=== PATIENT | male | born 1965 | race Caucasian/White ===

== ENCOUNTER 2018-03-16 00:50 | Inpatient (IN) | payer OTHER ==
[~2018-03-16] VITALS: Ht 177.8 cm; Wt 66.2 kg
[~2018-03-16 00:50] MED LIST: ALPR1TAB3 PO; HYDR-3763 PO; LAMO25TA PO; OXYC-737 PO; PANT40TA PO; PRVHFAIN INH
[2018-03-16 02:15] VITALS: BP 127/89; PULSE 94; TEMP 36.9; O2SAT 94
[2018-03-16] MEDS ORDERED: MoRPHine SULFATE 2 MG/ML CARP IV STA (02:29)
[2018-03-16] MEDS ORDERED: DiphenhydrAMINE INJ 25 MG in SYRINGE 0 ML IV STA (02:30)
[2018-03-16] MEDS ORDERED: MoRPHine SULFATE 2 MG/ML CARP ONE (02:30)
[2018-03-16] MEDS ORDERED: DiphenhydrAMINE HCL 50 MG/ML VIAL ONE (02:31)
[2018-03-16] MEDS ORDERED: ONDANSETRON INJ 2 MG/ML 2 ML VIAL IV PRN (03:15)
[2018-03-16] MEDS ORDERED: MAGNESIUM HYDROXIDE SUSP 30 ML UDC PO PRN (03:15)
[2018-03-16] MEDS ORDERED: ALUMINUM/MAGNESIUM/SIMETH (MAALOX MAX) 30 ML UDC PO PRN (03:15)
[2018-03-16] MEDS ORDERED: PATIENT'S HEIGHT AND/OR WEIGHT NEEDED SCH (03:30)
[2018-03-16] MEDS: LACTATED RINGER'S 1000ML 1,000 ML IV SCH ×4 (03:35→20:38)
[2018-03-16 03:41] VITALS: BMI 20.9
[2018-03-16] MEDS ORDERED: LORAZEPAM INJ 0.5 MG in SYRINGE 0.25 ML IV SCH (03:45)
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
[2018-03-16] MEDS ORDERED: GLUCAGON FOR INJ 1 MG VIAL IM PRN (04:00)
[2018-03-16] MEDS ORDERED: GLUCOSE 40% GEL 15 GM TUBE PO PRN (04:00)
[2018-03-16] MEDS ORDERED: GLUCOSE 10 TABS/TUBE PO PRN (04:00)
[2018-03-16] MEDS ORDERED: DEXTROSE 50% 50 ML SYR IV PRN (04:00)
[2018-03-16] MEDS: MoRPHine SULFATE 2 MG/ML CARP IV PRN ×3 (06:05→22:37)
[2018-03-16 06:45] LABS: BASO % 0.4 %; BASO ABS # 0.04 K/uL (0-0.2); EOS % 1.4 %; EOS ABS # 0.13 K/uL (0-0.5); HEMATOCRIT 37.7 % (42-52); HEMOGLOBIN 12.6 g/dL (14.0-18.0); IG# 0.01 K/uL (0.00-0.02); LYMPH % 16.5 %; LYMPH ABS # 1.58 K/uL (1.2-3.4); MEAN CELL VOLUME 95.7 fL (80-100); MEAN CORPUSCULAR HGB CONC 33.4 g/dl (32-36); MONO % 7.4 %; MONO ABS # 0.71 K/uL (0.11-0.59); NEUT % 74.2 %; NEUT ABS # 7.13 K/uL (1.4-6.5); PLATELET COUNT 157 K/uL (130-400); RED CELL DISTRIBUTION WIDTH CV 13.1 % (11.5-14.5); RED CELL DISTRIBUTION WIDTH SD 45.8 fL (36.4-46.3)
[2018-03-16 07:19] LABS: CALCIUM 8.8 mg/dl (8.5-10.1); CREATININE 0.52 mg/dl (0.60-1.40); POTASSIUM 4.2 mmol/L (3.5-5.1); TOTAL PROTEIN 6.9 gm/dl (6.4-8.2)
[2018-03-16 07:26] VITALS: BP 117/74; PULSE 73; TEMP 37.2; O2SAT 92
[2018-03-16] MEDS: INSULIN ASPART 100 UNITS/ML 3 ML PEN SC SCH ×4 (07:39→20:39)
[2018-03-16] MEDS: ENOXAPARIN 40 MG/0.4 ML SYR SQ SCH (09:00)
[2018-03-16] MEDS: ALPRAZOLAM 0.5 MG TAB PO SCH ×3 (09:19→20:48)
--- NOTE | 2018-03-16 09:36 | DIAGNOSTIC IMAGING REPORT ---
MRCP CLINICAL HISTORY: 52 years-old Male presenting with Pancreatic mass. TECHNIQUE: Multisequence, multiplanar MR imaging of the abdomen was performed without the use of intravenous contrast. An MRCP protocol was used. 3-D volumetric and/or maximum intensity projection (MIP) images were subsequently reconstructed for review. IV contrast: None. COMPARISON: CT from 05/01/2016 and MRI from 11/22/2012. FINDINGS: Localizer images: Unremarkable. Lung bases: Lungs and pleural spaces clear. Normal heart size. No pericardial or pleural effusion. Liver: Normal morphology. Well-defined T2 hyperintense lesion in the right hepatic lobe likely hepatic cyst or hamartoma. Patent hepatic vasculature. Biliary: Mild biliary ductal prominence likely a reservoir effect in the post cholecystectomy state. The cystic duct remnant is nondilated. Gallbladder surgically absent. Pancreas: Significant interval decrease caliber of the pancreatic duct in comparison to 2013. Nonetheless, the pancreatic duct is mildly prominent throughout. Focal lobular cystic region in the uncinate measuring 1.2 cm, which appears contiguous with the pancreatic duct. This was previously region of dilated side branch ducts. The pancreatic head demonstrates multiple foci of T2 hyperintensity (series 8 image 86). This region of the pancreatic head appears bulbous, especially at the level of the major papilla (series 6 image 11). This appearance is similar to what was noted on prior CT in 2016. Spleen: Normal. Adrenal glands: Normal. Kidneys and ureters: Small cyst noted in the right kidney. No hydronephrosis. Bowel: Wall thickening of the pylorus and duodenal bulb. No bowel obstruction. Peritoneal cavity: No free fluid. Lymph nodes: No enlarged lymph nodes in the abdomen. Vasculature: Aorta and IVC patent and normal in caliber. Abdominal wall: Normal. Musculoskeletal: Stable superior endplate compression deformity of L2. IMPRESSION: 1. Pancreatic ductal prominence overall decreased since 2013. 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 This appearance has not significantly changed over an extended period of time, however, the current study is noncontrast and suboptimal for the evaluation of the pancreas. Dedicated contrast-enhanced pancreas MRI with MRCP sequences recommended on subsequent yearly surveillance examinations. 2. Wall thickening of the pylorus and duodenal bulb. This is nonspecific. Correlate with lipase to exclude the presence of pancreatitis as a potential cause of this. Differential considerations include duodenitis or ulcer. 3. Postsurgical changes of cholecystectomy. Electronically signed by: Lazaro Simmons M.D. 03/16/2018 9:35 AM Dictated Date/Time: 03/16/2018 9:20 AM
[2018-03-16] MEDS ORDERED: KETOROLAC TROMETHAMINE 30 MG/ML VIAL IV STA (09:42)
[2018-03-16] MEDS ORDERED: PANTOprazole INJ 40 MG in SYRINGE 0 ML IV SCH (11:00)
--- NOTE | 2018-03-16 11:43 | Progress Note ---
Internal Med Progress Note Date of Service: Mar 16, 2018. Provider Documentation: SUBJECTIVE: The patient was seen and examined in medical floor He is a 52 year old male with a PMH of chronic pancreatitis, anxiety, hep C, epilepsy, gerd, HLD and DM that was transferred from [facility] due to abdominal pain Admitted with acute on chronic pancreatitis with a history of pancreatic head mass Did not have any EUS as an outpatient unit Complains of more pain during the examination but no nausea, vomiting or abdominal distention OBJECTIVE: Vital Signs-as noted below Exam: General-in pain Eyes-normal ENT-normal Neck-supple Lungs-clear to auscultate bilaterally Heart-regular Abdomen-soft, tender epigastrium, bowel sounds present Extremities-no edema Neuro-alert, awake and oriented 3 No focal neuro deficit Lab data as noted below. ASSESSMENT & PLAN: Patient is a 52 year old male with a PMH of chronic pancreatitis, anxiety, hep C , epilepsy, gerd, HLD and DM that was transferred from [facility] due to abdominal pain. Had a CT scan done and was found to have a pancreatic mass. Recurrent acute pancreatitis w/ pancreatic mass - Doubt acute pancreatitis with normal amylase/lipase and normal vital signs -Pain is out of proportion to clinical findings -We will give her Toradol with small dose of Dilaudid if needed - order MCRP to evaluate pancreatic mass; cystic pancreatic lesions, no significant ductal dilatation - LR at 200mls/hr, zofran 4mf IV q6 and morphine 1mg IV q4 -Was on n.p.o. will start clears orally - GI consult to evaluate mass for possible EUS as an outpatient -Clinically a little better, continue current medications and management plan T2DM - hold metformin - order ISS HLD - hold statin GERD - hold Protonix Epilepsy - hold Lamictal, - hold [id number] -Start Lamictal Anxiety - patient notes he takes Xanax prn for anxiety Chronic pain - patient notes he takes oxycodone prn -We will continue as an outpatient Hx of Hep C DVT - lovenox 40mg subq Dispo - lives in [facility] with his bestfriend, has a 5 year old daughter Full code Vital Signs: Date Time Temp Pulse Resp B/P (MAP) Pulse Ox O2 Delivery O2 Flow Rate FiO2 03/16/18 07:26 37.2 73 16 117/74 (88) 92 03/16/18 03:41 Room Air 03/16/18 02:15 36.9 94 18 127/89 (102) 94 Room Air Lab Results: Results Past 24 Hours Test 03/16/18 06:18 03/16/18 07:22 03/16/18 11:18 Range/Units White Blood Count 9.60 4.8-10.8 K/uL Red Blood Count 3.94 4.7-6.1 M/uL Hemoglobin 12.6 14.0-18.0 g/dL Hematocrit 37.7 42-52 % Mean Corpuscular Volume 95.7 80-100 fL Mean Corpuscular Hemoglobin 32.0 25-34 pg Mean Corpuscular Hemoglobin Concent 33.4 32-36 g/dl Platelet Count 157 130-400 K/uL Mean Platelet Volume 12.0 7.4-10.4 fL Neutrophils (%) (Auto) 74.2 % Lymphocytes (%) (Auto) 16.5 % Monocytes (%) (Auto) 7.4 % Eosinophils (%) (Auto) 1.4 % Basophils (%) (Auto) 0.4 % Neutrophils # (Auto) 7.13 1.4-6.5 K/uL Lymphocytes # (Auto) 1.58 1.2-3.4 K/uL Monocytes # (Auto) 0.71 0.11-0.59 K/uL Eosinophils # (Auto) 0.13 0-0.5 K/uL Basophils # (Auto) 0.04 0-0.2 K/uL RDW Standard Deviation 45.8 36.4-46.3 fL RDW Coefficient of Variation 13.1 11.5-14.5 % Immature Granulocyte % (Auto) 0.1 % Immature Granulocyte # (Auto) 0.01 0.00-0.02 K/uL Prothrombin Time 10.6 9.0-12.0 SECONDS Prothromb Time International Ratio 1.0 0.9-1.1 Sodium Level 137 136-145 mmol/L Potassium Level 4.2 3.5-5.1 mmol/L Chloride Level 101 98-107 mmol/L Carbon Dioxide Level 29 21-32 mmol/L Anion Gap 7.0 3-11 mmol/L Blood Urea Nitrogen 10 7-18 mg/dl Creatinine 0.52 0.60-1.40 mg/dl Est Creatinine Clear Calc Drug Dose 152.1 ml/min Estimated GFR () 140.1 Estimated GFR (Non- 120.9 BUN/Creatinine Ratio 18.2 10-20 Random Glucose 122 70-99 mg/dl Calcium Level 8.8 8.5-10.1 mg/dl Total Bilirubin 0.4 0.2-1 mg/dl Aspartate Amino Transf (AST/SGOT) 39 15-37 U/L Alanine Aminotransferase (ALT/SGPT) 77 12-78 U/L Alkaline Phosphatase 267 45-117 U/L Total Protein 6.9 6.4-8.2 gm/dl Albumin 3.0 3.4-5.0 gm/dl Globulin 3.9 2.5-4.0 gm/dl Albumin/Globulin Ratio 0.8 0.9-2 Lipase 71 73-393 U/L Bedside Glucose 140 116 70-99 mg/dl
[2018-03-16] MEDS: HYDROCODONE/ACETAMI 10/325 TAB PO PRN (11:46)
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
[2018-03-16 15:29] VITALS: BP 106/66; PULSE 56; TEMP 36.5; O2SAT 96
[2018-03-16] MEDS ORDERED: LORAZEPAM INJ 0.5 MG in SYRINGE 0.25 ML IV STA (17:29)
[2018-03-16 20:01] VITALS: BP 119/73; TEMP 36.8; O2SAT 93
[2018-03-16] MEDS ORDERED: GADAVIST IV PRN (20:30)
[2018-03-16] MEDS: KETOROLAC TROMETHAMINE 30 MG/ML VIAL IV PRN (20:37)
[2018-03-16] MEDS: PANTOprazole INJ 40 MG in SYRINGE 0 ML IV SCH (20:38)
--- NOTE | 2018-03-16 21:01 | DIAGNOSTIC IMAGING REPORT ---
MRI OF THE ABDOMEN COMBO CLINICAL HISTORY: Pancreatitis. Nausea and vomiting. COMPARISON STUDY: Abdominal CT dated 05/01/2016. Abdominal MRI dated 11/22/2012. MRCP dated 03/16/2018. TECHNIQUE: MRI of the abdomen is performed transverse T1 and T2-weighted sequences in the axial and coronal planes. Contrast enhanced sequences were acquired following the IV administration of 6.5 cc of Gadavist. Subtraction imaging was performed. MRCP images were acquired. 3-D reformats were created and assessed. The examination is significantly compromised by motion artifact. FINDINGS: Lower chest: There are small pleural effusions. The heart is normal in size and without pericardial effusion. Liver: The liver is normal in size, contour, and signal intensity. There is mild intrahepatic biliary ductal dilatation. The hepatic veins and portal veins are patent. A subcentimeter cyst is noted in the right lobe. A 1.4 cm enhancing lesion the left lobe likely represents a hemangioma and has been present dating back to 2012. Gallbladder and MRCP: The gallbladder is surgically absent. The common bile duct is somewhat patulous and measures up to 7 mm. No findings flexor clearly identified to indicate choledocholithiasis. Spleen: Normal in size and signal intensity. Pancreas: The pancreas is not well assessed. The pancreas appears mildly enlarged and is heterogeneous in signal intensity. The pancreatic head appears bulbous an ill-defined. Large calcifications are noted in the pancreatic head, and there is mild stranding around the pancreatic head and the adjacent duodenum. Mild wall thickening is noted in the duodenum. The pancreatic duct is dilated, measuring up to 6 mm. Cystic foci are present in the pancreatic head measure up to 16mm, and this was also seen on prior examinations. Adrenal glands: Unremarkable. Kidneys: The kidneys are normal in size and without hydronephrosis. The kidneys enhance and excrete symmetrically. There is a 1.8 cm T1 and T2 hyperintense lesions seen in the lower pole of left kidney. This does not demonstrate postcontrast enhancement and likely represents a complex/hemorrhagic cyst. This is been seen on prior examinations. There is trace nonspecific perinephric fluid. Abdominal aorta: Normal in course and caliber. Bowel: Moderate fecal retention is noted in the colon. There is no evidence of bowel obstruction. Peritoneum: There is no abdominal ascites. Lymphadenopathy: None. Skeletal structures: Visualized skeletal structures times are normal marrow signal intensity. IMPRESSION: 1. Significantly motion compromised examination. 2. There is mild inflammatory stranding around the pancreatic head, with associated wall thickening in the adjacent duodenum. Top differential considerations are pancreatitis versus duodenitis. Clinical correlation will be required. 3. There is unchanged abnormal appearance involving the pancreatic head, which is ill-defined and demonstrates foci of cystic change and large calcifications. This is indeterminant and may represent sidebranch IPMN's in conjunction with the sequelae of chronic pancreatitis. Underlying mass lesion involving the pancreas and/or duodenum would be impossible to exclude. These findings have been present on prior examinations dating back to 2012. Gastroenterology consultation and follow-up with ERCP is recommended for further assessment. 4. The gallbladder is surgically absent. Mild intra and extrahepatic biliary ductal dilatation is noted. There is no evidence of choledocholithiasis. There is also chronic dilatation of the pancreatic duct. 5. Small pleural effusions. 6. Additional findings as above. Electronically signed by: Navid Da Silva M.D. 03/16/2018 8:59 PM Dictated Date/Time: 03/16/2018 8:40 PM
[2018-03-16 22:55] VITALS: BP 107/67; PULSE 69; TEMP 36.7; O2SAT 93
[2018-03-17] MEDS: HYDROCODONE/ACETAMI 10/325 TAB PO PRN ×2 (00:29→06:21)
[2018-03-17] MEDS: LACTATED RINGER'S 1000ML 1,000 ML IV SCH ×4 (03:02→22:48)
[2018-03-17] MEDS: MoRPHine SULFATE 2 MG/ML CARP IV PRN ×4 (03:03→20:21)
[2018-03-17] MEDS: KETOROLAC TROMETHAMINE 30 MG/ML VIAL IV PRN (06:42)
[2018-03-17 07:14] VITALS: BP 118/72; PULSE 60; TEMP 36.7; O2SAT 91
[2018-03-17] MEDS ORDERED: NURSING VERBAL MED ORDER ONE ×2 (07:30→09:45)
[2018-03-17] MEDS: PANTOprazole INJ 40 MG in SYRINGE 0 ML IV SCH ×2 (07:52→20:59)
[2018-03-17] MEDS: ENOXAPARIN 40 MG/0.4 ML SYR SQ SCH (07:57)
[2018-03-17] MEDS: ALPRAZOLAM 0.5 MG TAB PO SCH ×3 (07:57→21:10)
[2018-03-17 09:59] LABS: HEMATOCRIT 32.7 % (42-52); HEMOGLOBIN 10.8 g/dL (14.0-18.0); MEAN CELL VOLUME 95.1 fL (80-100); MEAN CORPUSCULAR HEMOGLOBIN 31.4 pg (25-34); MEAN PLATELET VOLUME 11.8 fL (7.4-10.4); PLATELET COUNT 157 K/uL (130-400); RED CELL DISTRIBUTION WIDTH CV 13.1 % (11.5-14.5); RED CELL DISTRIBUTION WIDTH SD 45.2 fL (36.4-46.3); WHITE BLOOD COUNT 6.86 K/uL (4.8-10.8)
--- NOTE | 2018-03-17 10:26 | Clinical Documentation Query ---
[facility]. [facility] : CLINICAL DOCUMENTATION QUERY Patient is a 52 year old male that was transferred from [facility] due to abdominal pain. H&P documentation includes "24 pound unintentional weight loss over the past 2 months" in the setting of recurrent acute on chronic pancreatitis. Patient reports recent vomiting, a decreased appetite, and nausea. BMI 20.9 kg/m*m. As appropriate, consider documentation as suggested below as this impacts accurate DRG assignment. Thank you. In your clinical opinion is this patient being managed for: ( x ) Mild protein-calorie malnutrition ( ) Not Agree ( ) Other explanation of clinical findings (No explanation is considered a No Response) ( ) Unable to determine ( ) Need to Discuss (Phone CDS or qliq) (No discussion is considered a No Response) The medical record reflects the following clinical findings, treatment, and risk factors. Clinical Indicators: As above Treatment: As above Risk Factors: Pancreatitis, drug use/abuse Please clarify and document your clinical opinion in the progress notes and discharge summary. Terms such as "probable", "suspected", "likely", "questionable", "possible", or "still to be ruled out" are acceptable. IF IN AGREEMENT, YOU MUST DOCUMENT ABOVE DIAGNOSTIC STATEMENT IN DAILY PROGRESS NOTES AND DISCHARGE SUMMARY. This document is not part of the patient's record. Thank You, Marty Littlejohn, JOCELYN [phone]
[2018-03-17 10:36] LABS: ALBUMIN 2.3 gm/dl (3.4-5.0); ALT/SGPT 103 U/L (12-78); AST/SGOT 114 U/L (15-37); BLOOD UREA NITROGEN 9 mg/dl (7-18); CALCIUM 8.1 mg/dl (8.5-10.1); CARBON DIOXIDE 25 mmol/L (21-32); CREATININE 0.41 mg/dl (0.60-1.40); GLUCOSE 82 mg/dl (70-99); LIPASE 58 U/L (73-393); POTASSIUM 3.5 mmol/L (3.5-5.1); SODIUM 141 mmol/L (136-145)
[2018-03-17 10:38] LABS: ALKALINE PHOSPHATASE 344 U/L (45-117); TOTAL PROTEIN 5.5 gm/dl (6.4-8.2)
--- NOTE | 2018-03-17 10:38 | Progress Note ---
Internal Med Progress Note Date of Service: Mar 17, 2018. Provider Documentation: SUBJECTIVE: The patient was seen and examined in medical floor He is a 52 year old male with a PMH of chronic pancreatitis, anxiety, hep C, epilepsy, gerd, HLD and DM that was transferred from [facility] due to abdominal pain Admitted with acute on chronic pancreatitis with a history of pancreatic head mass Did not have any EUS as an outpatient unit Complains of more pain during the examination but no nausea, vomiting or abdominal distention 03/17: Remains on n.p.o. Still has moderate to severe epigastric pain without any nausea or vomiting MRI of the abdomen confirmed cystic changes in the head of the pancreas consistent with chronic pancreatitis Likely to need chronic pain medications OBJECTIVE: Vital Signs-as noted below Exam: General-in pain and very anxious Eyes-normal ENT-normal Neck-supple Lungs-clear to auscultate bilaterally Heart-regular Abdomen-soft, tender epigastrium, no masses, bowel sounds present Extremities-no edema Neuro-alert, awake and oriented 3 No focal neuro deficit Lab data as noted below. ASSESSMENT & PLAN: Patient is a 52 year old male with a PMH of chronic pancreatitis, anxiety, hep C , epilepsy, gerd, HLD and DM that was transferred from [facility] due to abdominal pain. Had a CT scan done and was found to have a pancreatic mass. Recurrent acute pancreatitis w/ pancreatic mass - Doubt acute pancreatitis with normal amylase/lipase and normal vital signs -Pain is out of proportion to clinical findings -We will give her Toradol with small dose of Dilaudid if needed - order MRCP to evaluate pancreatic mass; cystic pancreatic lesions, no significant ductal dilatation - LR at 200mls/hr, zofran 4mf IV q6 and morphine 1mg IV q4 -Was on n.p.o. will start clears orally - GI consult to evaluate mass for possible EUS as an outpatient -Clinically a little better, continue current medications and management plan -MRI of the Abdomen:1. Significantly motion compromised examination. 2. There is mild inflammatory stranding around the pancreatic head, with associated wall thickening in the adjacent duodenum. Top differential considerations are pancreatitis versus duodenitis. Clinical correlation will be required. 3. There is unchanged abnormal appearance involving the pancreatic head, which is ill-defined and demonstrates foci of cystic change and large calcifications. This is indeterminant and may represent sidebranch IPMN's in conjunction with the sequelae of chronic pancreatitis. Underlying mass lesion involving the pancreas and/or duodenum would be impossible to exclude. These findings have been present on prior examinations dating back to 2012. Gastroenterology consultation and follow-up with ERCP is recommended for further assessment. 4. The gallbladder is surgically absent. Mild intra and extrahepatic biliary ductal dilatation is noted. There is no evidence of choledocholithiasis. There is also chronic dilatation of the pancreatic duct. 5. Small pleural effusions. Start Clears orally Will need oral pain med on discharge Mild Protein Calorie Malnutrition Nutrition assessment T2DM - hold metformin - order ISS HLD - hold statin GERD - hold Protonix Epilepsy - hold Lamictal, - hold [id number] -Start Lamictal Anxiety - patient notes he takes Xanax prn for anxiety Chronic pain - patient notes he takes oxycodone prn -We will continue as an outpatient Hx of Hep C DVT - lovenox 40mg subq Dispo - lives in [facility] with his best friend, has a 5 year old daughter Full code Vital Signs: Date Time Temp Pulse Resp B/P (MAP) Pulse Ox O2 Delivery O2 Flow Rate FiO2 03/17/18 07:14 36.7 60 20 118/72 (87) 91 Room Air 03/17/18 00:00 Room Air 03/16/18 22:55 36.7 69 18 107/67 (80) 93 Room Air 03/16/18 20:01 36.8 19 119/73 (88) 93 Room Air 03/16/18 16:00 Room Air 03/16/18 15:29 36.5 56 18 106/66 (79) 96 Room Air Lab Results: Results Past 24 Hours Test 03/16/18 11:18 03/16/18 16:34 03/16/18 20:35 03/17/18 07:22 Range/Units Bedside Glucose 116 88 91 92 70-99 mg/dl Test 03/17/18 09:36 03/17/18 10:15 Range/Units White Blood Count 6.86 4.8-10.8 K/uL Red Blood Count 3.44 4.7-6.1 M/uL Hemoglobin 10.8 14.0-18.0 g/dL Hematocrit 32.7 42-52 % Mean Corpuscular Volume 95.1 80-100 fL Mean Corpuscular Hemoglobin 31.4 25-34 pg Mean Corpuscular Hemoglobin Concent 33.0 32-36 g/dl RDW Standard Deviation 45.2 36.4-46.3 fL RDW Coefficient of Variation 13.1 11.5-14.5 % Platelet Count 157 130-400 K/uL Mean Platelet Volume 11.8 7.4-10.4 fL Sodium Level 141 136-145 mmol/L Potassium Level 3.5 3.5-5.1 mmol/L Chloride Level 106 98-107 mmol/L Carbon Dioxide Level 25 21-32 mmol/L Anion Gap 10.0 3-11 mmol/L Blood Urea Nitrogen 9 7-18 mg/dl Creatinine 0.41 0.60-1.40 mg/dl Est Creatinine Clear Calc Drug Dose 192.9 ml/min Estimated GFR () > 150.0 Estimated GFR (Non- 133.3 BUN/Creatinine Ratio 22.3 10-20 Random Glucose 82 70-99 mg/dl Calcium Level 8.1 8.5-10.1 mg/dl Total Bilirubin 0.5 0.2-1 mg/dl Direct Bilirubin 0.2 0-0.2 mg/dl Aspartate Amino Transf (AST/SGOT) 114 15-37 U/L Alanine Aminotransferase (ALT/SGPT) 103 12-78 U/L Alkaline Phosphatase 344 45-117 U/L Total Protein 5.5 6.4-8.2 gm/dl Albumin 2.3 3.4-5.0 gm/dl Lipase 58 73-393 U/L Bedside Glucose 89 70-99 mg/dl
--- NOTE | 2018-03-17 10:55 | Gastroenterology Progress Note ---
Progress Note Date of Service: Mar 17, 2018 Subjective Pt evaluation today including: conversation w/ patient, physical exam, chart review, lab review, review of studies, review of inpatient medication list Pt still c/o abd pain, nausea but no vomiting. Is passing flatus, no BMs. MRI abd w contrast done yesterday: + pancreas head inflammatory changes w wall thickening adjacent to duodenum. Abnormal appearance on pancreas head w cystic changes and large calcifications, indeterminate but may be sidebranch IPMN, underlaying mass not excluded, there's also chronic pancreas duct dilation. Review of Systems Constitutional: No fever, No chills Respiratory: No cough, No shortness of breath Cardiac: No chest pain Abdomen: + pain, + nausea, No vomiting Medications Current Inpatient Medications Medications (Trade) Dose Ordered Sig/Omar Route Start Time Stop Time Status Last Admin Dose Admin Enoxaparin Sodium (Lovenox Inj) 40 mg Q24H SQ 03/16/18 09:00 04/15/18 08:59 Al Hydrox/Mg Hydrox/Simethicone (Maalox Max Susp) 15 ml Q4H PRN PO 03/16/18 03:15 04/15/18 03:14 Magnesium Hydroxide (Milk Of Magnesia Susp) 30 ml Q6H PRN PO 03/16/18 03:15 04/15/18 03:14 Polyethylene (Miralax Powder Packet) 17 gm DAILY PRN PO 03/16/18 03:15 04/15/18 03:14 Ondansetron HCl (Zofran Inj) 4 mg Q6H PRN IV 03/16/18 03:15 04/15/18 03:14 Lactated Ringer's 1,000 ml @ 150 mls/hr Q6H40M IV 03/16/18 03:15 04/15/18 03:14 03/17/18 10:11 150 MLS/HR Morphine Sulfate (MoRPHine SULFATE INJ) 1 mg Q4 PRN IV 03/16/18 03:15 03/30/18 03:14 03/17/18 07:49 1 MG Glucose (Glucose 40% Gel) 15-30 GRAMS 15 GRAMS... UD PRN PO 03/16/18 04:00 04/15/18 03:59 Glucose (Glucose Chew Tab) 4-8 Tablets 4 Tabl... UD PRN PO 03/16/18 04:00 04/15/18 03:59 Dextrose (Dextrose 50% 50ML Syringe) 25-50ML 25ML FOR ... UD PRN IV 03/16/18 04:00 04/15/18 03:59 Glucagon (Glucagon Inj) 1 mg UD PRN IM 03/16/18 04:00 04/15/18 03:59 Carbohydrates (Carbohydrates For Hypoglycemia) 15-30 GRAMS 15 grams if BSG 54-69... UD PRN PO 03/16/18 04:00 04/15/18 03:59 Alprazolam (Xanax Tab) 1 mg TID PO 03/16/18 09:00 04/15/18 08:59 03/17/18 07:57 1 MG Lamotrigine (Lamictal Tab) 50 mg BID PO 03/16/18 09:00 04/15/18 08:59 03/17/18 07:57 50 MG Ketorolac Tromethamine (Toradol Inj) 30 mg Q6H PRN IV 03/16/18 09:30 03/21/18 09:29 03/17/18 06:42 30 MG Pantoprazole Sodium 40 mg/ Syringe 10 ml @ 5 mls/min BID IV 03/16/18 21:00 04/15/18 10:59 03/17/18 07:52 5 MLS/MIN Gadobutrol (Gadavist) 6.5 mmol UD PRN IV 03/16/18 20:30 03/20/18 20:29 Insulin Aspart (novoLOG ASPART) SLIDING SCALE G... ACHS SC 03/17/18 11:00 04/16/18 10:59 Hydromorphone HCl (Dilaudid Tab) 2 mg Q6H PRN PO 03/17/18 10:30 03/31/18 10:29 Objective Vital Signs Date Time Temp Pulse Resp B/P (MAP) Pulse Ox O2 Delivery O2 Flow Rate FiO2 03/17/18 07:14 36.7 60 20 118/72 (87) 91 Room Air 03/17/18 00:00 Room Air 03/16/18 22:55 36.7 69 18 107/67 (80) 93 Room Air 03/16/18 20:01 36.8 19 119/73 (88) 93 Room Air 03/16/18 16:00 Room Air 03/16/18 15:29 36.5 56 18 106/66 (79) 96 Room Air Physical Exam General Appearance: + mild distress (c/o abd pain) Eyes: normal inspection, PERRL, EOMI Neck: supple, no JVD, trachea midline Respiratory/Chest: normal breath sounds, no respiratory distress, no accessory muscle use Cardiovascular: regular rate, rhythm, no gallop, no murmur Abdomen: normal bowel sounds, soft, + tenderness (diffuse) Extremities: normal inspection, no pedal edema, no calf tenderness Neurologic/Psych: alert, normal mood/affect, oriented x 3 Skin: normal color, no jaundice, no rash Laboratory Results Last 24 Hours Test 03/16/18 11:18 03/16/18 16:34 03/16/18 20:35 03/17/18 07:22 Bedside Glucose 116 mg/dl 88 mg/dl 91 mg/dl 92 mg/dl Test 03/17/18 09:36 03/17/18 10:15 White Blood Count 6.86 K/uL Red Blood Count 3.44 M/uL Hemoglobin 10.8 g/dL Hematocrit 32.7 % Mean Corpuscular Volume 95.1 fL Mean Corpuscular Hemoglobin 31.4 pg Mean Corpuscular Hemoglobin Concent 33.0 g/dl RDW Standard Deviation 45.2 fL RDW Coefficient of Variation 13.1 % Platelet Count 157 K/uL Mean Platelet Volume 11.8 fL Sodium Level 141 mmol/L Potassium Level 3.5 mmol/L Chloride Level 106 mmol/L Carbon Dioxide Level 25 mmol/L Anion Gap 10.0 mmol/L Blood Urea Nitrogen 9 mg/dl Creatinine 0.41 mg/dl Est Creatinine Clear Calc Drug Dose 192.9 ml/min Estimated GFR () > 150.0 Estimated GFR (Non- 133.3 BUN/Creatinine Ratio 22.3 Random Glucose 82 mg/dl Calcium Level 8.1 mg/dl Total Bilirubin 0.5 mg/dl Direct Bilirubin 0.2 mg/dl Aspartate Amino Transf (AST/SGOT) 114 U/L Alanine Aminotransferase (ALT/SGPT) 103 U/L Alkaline Phosphatase 344 U/L Total Protein 5.5 gm/dl Albumin 2.3 gm/dl Lipase 58 U/L Bedside Glucose 89 mg/dl Assessment and Plan Patient is a 52 year old male transferred from [facility] for abd pain, n/ v. He has hx of pancreas mass w chronic pancreatitis. Tobacco and marijuana user , denies any ETOH since 5 yrs ago. He is s/p cholecystectomy. Previous EUS done in 2016 w FNA showed benign tissue. Attempt repeat EUS in 2017 w limited exam and incomplete study due to food in stomach. He had been seen by GI Surgery ( Dr. Walker) to eval for possible resection of mass but never followed up. MRI abd w/o abscess or necrosis. Similar findings as previously seen in 2013 w pancreas head inflammatory and cystic changes, ? underlaying mass not excluded. He also appears to have developing wall thickening adjacent to duodenum area, wonder if he has Groove pancreatitis. Plan - Obtain records (labs, imaging studies) from [facility] -> scanned - CL diet - LR @ 150ml/hr - Protonix 40mg IV BID. - Symptomatic management otherwise - Eventually would need f/u with GI Surgery (Dr. Walker) which we will help arrange and if they request repeat EUS w FNA then we can provide this service. Attending attestation I have seen, examined this patient, and agree with the findings and above by our mid-level provider KELLY Soliz. -MRI reviewed-stable Chronic starkey changes -F/U with Surgical oncology with Dr. Quincy Walker to discuss elective resection to both ensure no other pathologic changes are had as well as for potential pain. -Continue symptomatic care, with IVF, pain control. D/C to home when tolerating diet and pain controlled. -Will sign off, call with questions.
[2018-03-17] MEDS ORDERED: INSULIN ASPART 100 UNITS/ML 3 ML PEN SC SCH (12:00)
[2018-03-17] MEDS: INSULIN ASPART 100 UNITS/ML 3 ML PEN SC SCH ×3 (12:26→21:00)
[2018-03-17] MEDS: HYDROmorphone HCL 2 MG TAB PO PRN ×2 (12:43→19:13)
[2018-03-17 15:25] VITALS: BP 105/65; PULSE 78; TEMP 36.9; O2SAT 95
[2018-03-17 19:00] VITALS: O2SAT 95
[2018-03-17 20:19] VITALS: BP 107/73; PULSE 87; O2SAT 96
[2018-03-17 23:22] VITALS: BP 110/65; PULSE 66; TEMP 37.1; O2SAT 96
[2018-03-18] MEDS: MoRPHine SULFATE 2 MG/ML CARP IV PRN ×2 (00:55→05:07)
[2018-03-18] MEDS: HYDROmorphone HCL 2 MG TAB PO PRN ×2 (02:10→08:09)
[2018-03-18 04:30] VITALS: BP 138/79; PULSE 77; TEMP 37.2; O2SAT 93
[2018-03-18] MEDS: LACTATED RINGER'S 1000ML 1,000 ML IV SCH ×3 (05:09→18:49)
[2018-03-18 07:18] VITALS: BP 115/67; PULSE 69; TEMP 37; O2SAT 92
[2018-03-18] MEDS: ALPRAZOLAM 0.5 MG TAB PO SCH ×3 (08:08→20:37)
[2018-03-18] MEDS: PANTOprazole INJ 40 MG in SYRINGE 0 ML IV SCH ×2 (08:10→20:15)
[2018-03-18] MEDS: ENOXAPARIN 40 MG/0.4 ML SYR SQ SCH (08:13)
[2018-03-18] MEDS: INSULIN ASPART 100 UNITS/ML 3 ML PEN SC SCH ×4 (08:13→20:19)
[2018-03-18] MEDS ORDERED: OXYCODONE HCL IR 5 MG TAB (IMMEDIATE RELEASE) PO PRN (10:00)
[2018-03-18] MEDS: HYDROmorphone INJ 0.5 MG/0.5 ML SYR IV SCH ×3 (11:53→20:14)
--- NOTE | 2018-03-18 13:03 | Progress Note ---
Internal Med Progress Note Date of Service: Mar 18, 2018. Provider Documentation: SUBJECTIVE: The patient was seen and examined in medical floor He is a 52 year old male with a PMH of chronic pancreatitis, anxiety, hep C, epilepsy, gerd, HLD and DM that was transferred from [facility] due to abdominal pain Admitted with acute on chronic pancreatitis with a history of pancreatic head mass Did not have any EUS as an outpatient unit Complains of more pain during the examination but no nausea, vomiting or abdominal distention 03/17: Remains on n.p.o. Still has moderate to severe epigastric pain without any nausea or vomiting MRI of the abdomen confirmed cystic changes in the head of the pancreas consistent with chronic pancreatitis Likely to need chronic pain medications 03/18: Complains of a lot of pain in abdomen Try to eat and the pain got worse Oral pain medicine has not been working OBJECTIVE: Vital Signs-as noted below Exam: General-still in pain and very anxious Eyes-normal ENT-normal Neck-supple Lungs-clear to auscultate bilaterally Heart-regular Abdomen-soft, tender epigastrium, no masses, bowel sounds present Minimally distended abdomen and very tender epigastrium no guarding, and/or rigidity Extremities-no edema Neuro-alert, awake and oriented 3 No focal neuro deficit Lab data as noted below. ASSESSMENT & PLAN: Patient is a 52 year old male with a PMH of chronic pancreatitis, anxiety, hep C , epilepsy, gerd, HLD and DM that was transferred from [facility] due to abdominal pain. Had a CT scan done and was found to have a pancreatic mass. Recurrent acute pancreatitis w/ pancreatic mass - Doubt acute pancreatitis with normal amylase/lipase and normal vital signs -Pain is out of proportion to clinical findings -We will give her Toradol with small dose of Dilaudid if needed - order MRCP to evaluate pancreatic mass; cystic pancreatic lesions, no significant ductal dilatation - LR at 200mls/hr, zofran 4mf IV q6 and morphine 1mg IV q4 -Was on n.p.o. will start clears orally - GI consult to evaluate mass for possible EUS as an outpatient -Clinically a little better, continue current medications and management plan -MRI of the Abdomen:1. Significantly motion compromised examination. 2. There is mild inflammatory stranding around the pancreatic head, with associated wall thickening in the adjacent duodenum. Top differential considerations are pancreatitis versus duodenitis. Clinical correlation will be required. 3. There is unchanged abnormal appearance involving the pancreatic head, which is ill-defined and demonstrates foci of cystic change and large calcifications. This is indeterminant and may represent sidebranch IPMN's in conjunction with the sequelae of chronic pancreatitis. Underlying mass lesion involving the pancreas and/or duodenum would be impossible to exclude. These findings have been present on prior examinations dating back to 2012. Gastroenterology consultation and follow-up with ERCP is recommended for further assessment. 4. The gallbladder is surgically absent. Mild intra and extrahepatic biliary ductal dilatation is noted. There is no evidence of choledocholithiasis. There is also chronic dilatation of the pancreatic duct. 5. Small pleural effusions. Start Clears orally-could not tolerate Will revert back to n.p.o. and give [id number] IV pain medications for a day or 2 Oral pain med on discharge Mild Protein Calorie Malnutrition Nutrition assessment Trying to take nutritional supplement T2DM - hold metformin - order ISS HLD - hold statin GERD - hold Protonix Epilepsy - hold Lamictal, - hold -Start Lamictal Anxiety - patient notes he takes Xanax prn for anxiety Chronic pain - patient notes he takes oxycodone prn -We will continue as an outpatient Hx of Hep C DVT - lovenox 40mg subq Dispo - lives in [facility] with his best friend, has a 5 year old daughter Full code Clinically better Likely to be discharged on Tuesday/Tuesday Vital Signs: Date Time Temp Pulse Resp B/P (MAP) Pulse Ox O2 Delivery O2 Flow Rate FiO2 03/18/18 08:00 Room Air 03/18/18 07:18 37.0 69 18 115/67 (83) 92 03/18/18 04:30 37.2 77 20 138/79 (98) 93 Room Air 03/18/18 00:00 Room Air 03/17/18 23:22 37.1 66 19 110/65 (80) 96 Room Air 03/17/18 20:19 87 107/73 (84) 96 Room Air 03/17/18 19:00 95 Room Air 03/17/18 15:25 36.9 78 18 105/65 (78) 95 Room Air 03/17/18 13:23 Room Air Lab Results: Results Past 24 Hours Test 03/17/18 16:23 03/17/18 20:17 03/18/18 07:24 Range/Units Bedside Glucose 218 160 214 70-99 mg/dl
[2018-03-18 15:22] VITALS: BP 109/69; PULSE 91; TEMP 36.8; O2SAT 92
[2018-03-18 23:26] VITALS: BP 110/74; PULSE 78; TEMP 37.1; O2SAT 92
[2018-03-19] MEDS: HYDROmorphone INJ 0.5 MG/0.5 ML SYR IV SCH ×9 (00:15→22:53)
[2018-03-19] MEDS: LACTATED RINGER'S 1000ML 1,000 ML IV SCH ×4 (02:09→22:53)
[2018-03-19 07:07] VITALS: BP 104/67; PULSE 62; TEMP 36.7; O2SAT 93
[2018-03-19] MEDS: INSULIN ASPART 100 UNITS/ML 3 ML PEN SC SCH ×4 (08:16→20:23)
[2018-03-19] MEDS: ENOXAPARIN 40 MG/0.4 ML SYR SQ SCH (08:18)
[2018-03-19] MEDS: ALPRAZOLAM 0.5 MG TAB PO SCH ×3 (08:49→20:28)
[2018-03-19] MEDS: PANTOprazole INJ 40 MG in SYRINGE 0 ML IV SCH ×2 (08:51→20:20)
[2018-03-19 09:01] LABS: CREATININE 0.57 mg/dl (0.60-1.40)
--- NOTE | 2018-03-19 10:46 | Progress Note ---
Internal Med Progress Note Date of Service: Mar 19, 2018. Provider Documentation: SUBJECTIVE: The patient was seen and examined in medical floor He is a 52 year old male with a PMH of chronic pancreatitis, anxiety, hep C, epilepsy, gerd, HLD and DM that was transferred from [facility] due to abdominal pain Admitted with acute on chronic pancreatitis with a history of pancreatic head mass Did not have any EUS as an outpatient unit Complains of more pain during the examination but no nausea, vomiting or abdominal distention 03/17: Remains on n.p.o. Still has moderate to severe epigastric pain without any nausea or vomiting MRI of the abdomen confirmed cystic changes in the head of the pancreas consistent with chronic pancreatitis Likely to need chronic pain medications 03/18: Complains of a lot of pain in abdomen Try to eat and the pain got worse Oral pain medicine has not been working 03/19: Still complains of pain across the upper abdomen, which is worse after any food Denies any nausea and/or vomiting Pain is not controlled with IV Dilaudid 0.5 mg every 4 hours OBJECTIVE: Vital Signs-as noted below Exam: General-still in pain and very anxious Not been tolerating any food yet Eyes-normal ENT-normal Neck-supple Lungs-clear to auscultate bilaterally Heart-regular Abdomen-soft, tender epigastrium, no masses, bowel sounds present Minimally distended abdomen and very tender epigastrium no guarding, and/or rigidity Extremities-no edema Neuro-alert, awake and oriented 3 No focal neuro deficit Lab data as noted below. ASSESSMENT & PLAN: Patient is a 52 year old male with a PMH of chronic pancreatitis, anxiety, hep C , epilepsy, gerd, HLD and DM that was transferred from [facility] due to abdominal pain. Had a CT scan done and was found to have a pancreatic mass. Abdominal pain due to chronic pancreatitis Has been on Dilaudid 0.5 mg IV q. 4 hourly We will increase the frequency to q. 3 hourly Not yet ready to be discharged Recurrent acute pancreatitis w/ pancreatic mass - Doubt acute pancreatitis with normal amylase/lipase and normal vital signs -Pain is out of proportion to clinical findings -We will give her Toradol with small dose of Dilaudid if needed - order MRCP to evaluate pancreatic mass; cystic pancreatic lesions, no significant ductal dilatation - LR at 200mls/hr, zofran 4mf IV q6 and morphine 1mg IV q4 -Was on n.p.o. will start clears orally - GI consult to evaluate mass for possible EUS as an outpatient -Clinically a little better, continue current medications and management plan -MRI of the Abdomen:1. Significantly motion compromised examination. 2. There is mild inflammatory stranding around the pancreatic head, with associated wall thickening in the adjacent duodenum. Top differential considerations are pancreatitis versus duodenitis. Clinical correlation will be required. 3. There is unchanged abnormal appearance involving the pancreatic head, which is ill-defined and demonstrates foci of cystic change and large calcifications. This is indeterminant and may represent sidebranch IPMN's in conjunction with the sequelae of chronic pancreatitis. Underlying mass lesion involving the pancreas and/or duodenum would be impossible to exclude. These findings have been present on prior examinations dating back to 2012. Gastroenterology consultation and follow-up with ERCP is recommended for further assessment. 4. The gallbladder is surgically absent. Mild intra and extrahepatic biliary ductal dilatation is noted. There is no evidence of choledocholithiasis. There is also chronic dilatation of the pancreatic duct. 5. Small pleural effusions. Start Clears orally-could not tolerate Will revert back to n.p.o. and give [id number] IV pain medications for a day or 2 Oral pain med on discharge Has been on clears orally now we will try to advance as tolerated Mild Protein Calorie Malnutrition Nutrition assessment Trying to take nutritional supplement T2DM - hold metformin - order ISS HLD - hold statin GERD - hold Protonix Epilepsy - hold gabapentin -Start Lamictal Anxiety - patient notes he takes Xanax prn for anxiety Chronic pain - patient notes he takes oxycodone prn -We will continue as an outpatient Hx of Hep C DVT - lovenox 40mg subq Dispo - lives in [facility] with his best friend, has a 5 year old daughter Full code Likely to be discharged on Tuesday/Tuesday when he can tolerate food and the pain is controlled on oral medications Vital Signs: Date Time Temp Pulse Resp B/P (MAP) Pulse Ox O2 Delivery O2 Flow Rate FiO2 03/19/18 07:07 36.7 62 18 104/67 (79) 93 03/18/18 23:26 37.1 78 19 110/74 (86) 92 Room Air 03/18/18 20:00 Room Air 03/18/18 15:22 36.8 91 18 109/69 (82) 92 Room Air Lab Results: Results Past 24 Hours Test 03/18/18 11:16 03/18/18 16:37 03/18/18 20:17 03/19/18 07:31 Range/Units Bedside Glucose 176 244 205 274 70-99 mg/dl Test 03/19/18 07:51 Range/Units Creatinine 0.57 0.60-1.40 mg/dl Est Creatinine Clear Calc Drug Dose 138.7 ml/min Estimated GFR () 134.9 Estimated GFR (Non- 116.4
[2018-03-19] MEDS: CARBOHYDRATES FOR HYPOGLYCEMIA PO PRN (11:38)
[2018-03-19 15:06] VITALS: BP 120/80; PULSE 63; TEMP 36.6; O2SAT 93
[2018-03-19 22:39] VITALS: BP 118/73; PULSE 69; TEMP 36.7; O2SAT 96
[2018-03-20] MEDS: HYDROmorphone INJ 0.5 MG/0.5 ML SYR IV SCH ×8 (02:10→22:53)
[2018-03-20] MEDS: LACTATED RINGER'S 1000ML 1,000 ML IV SCH ×3 (04:56→13:44)
[2018-03-20 07:24] VITALS: BP 115/71; PULSE 68; TEMP 36.5; O2SAT 96
[2018-03-20] MEDS: PANTOprazole INJ 40 MG in SYRINGE 0 ML IV SCH ×2 (07:56→20:43)
[2018-03-20] MEDS: ALPRAZOLAM 0.5 MG TAB PO SCH ×3 (07:56→20:43)
[2018-03-20] MEDS: ENOXAPARIN 40 MG/0.4 ML SYR SQ SCH (07:59)
[2018-03-20 08:00] VITALS: O2SAT 96
[2018-03-20] MEDS ORDERED: PHARMACY GLYCEMIC MGMT CONSULT PRN (08:15)
[2018-03-20] MEDS ORDERED: INSULIN GLARGINE SOLOSTAR 100 UNITS/ML 3 ML PEN SC ONE (08:45)
--- NOTE | 2018-03-20 08:55 | Pharmacy Progress Note ---
Glycemic Control Intl Consult Date of Service Mar 20, 2018. Scope Glycemic Pharmacist consulted by Dr Gonzalez on 03/20/18 for glycemic control and to write orders per [facility] inpatient glycemic control protocol Objective Weight (Kilograms): 66.200 Accuchecks BSG (last 24hrs): Test 03/19/18 11:31 03/19/18 11:32 03/19/18 12:03 03/19/18 16:29 Bedside Glucose 52 mg/dl (70-99) 56 mg/dl (70-99) 75 mg/dl (70-99) 214 mg/dl (70-99) Test 03/19/18 20:13 03/20/18 07:35 03/20/18 07:36 03/20/18 07:54 Bedside Glucose 167 mg/dl (70-99) 361 mg/dl (70-99) 407 mg/dl (70-99) 396 mg/dl (70-99) Laboratory Data (last 24hrs) Test 03/20/18 08:28 HbA1c Test 03/20/18 08:28 Recent Pertinent Medications Outpatient Anti-diabetic Regimen: * metformin ? (not listed on pt med rec but noted in MD progress notes; will clarify with patient) * A1c 7.2% The patient is currently receiving: * Basal insulin: none * Correctional Insulin: Novolog Correction per scale ACHS Goal Range: Low 120 mg/dL - High 180 mg/dL Correction Factor: 20 mg/dL/unit * Prandial insulin: Per carb ratio of 1 unit per 10 grams CHO consumed Assessment & Plan ASSESSMENT: * 52 yr old T2DM male admitted for recurrent pancreatitis. * Patient is currently being managed with Novolog correction factor and sliding scale only. * BSG values have fluctuated over the past 24 hours (274-fasting, 52, 214, 157) . I suspect patient may be getting too much correctional insulin and not enough coverage for meals. * Fasting BSG is elevated (214, 274, 361), therefore I will add weight based basal insulin. * A one time dose of IV regular insulin will be given this AM for BSG > 350 mg/ dL. PLAN FOR INPATIENT GLYCEMIC CONTROL: * Holding outpatient oral diabetes medications * IV regular insulin 6 units (0.1 unit/kg) IV x 1 * Add basal insulin * Lantus 12 units SQ this AM, then 6 units SQ BID * Correctional Insulin - tighten carb ratio and lower goal range * NOVOLOG per scale ACHS or Q6hrs while NPO * Goal Range: Low 120 mg/dL - High 150 mg/dL * Correction Factor: 25 mg/dL/unit * Nutritional / Prandial insulin per carb ratio of 1 unit per 8 grams CHO consumed * Please note that the plan above was derived based on current level of insulin resistance and hospital stress. These recommendations are appropriate for inpatient admission only. Plan of care upon discharge will need to be reassessed to avoid potential outpatient hypo/hyperglycemia. Thank you.
[2018-03-20 08:59] LABS: HEMOGLOBIN A1C 7.2 % (4.5-5.6)
[2018-03-20] MEDS: INSULIN ASPART 100 UNITS/ML 3 ML PEN SC SCH ×4 (09:12→20:46)
[2018-03-20] MEDS ORDERED: INSULIN HUMAN REGULAR PER UNIT 6 UNITS in SYRINGE 5.94 ML IV ONE (09:45)
[2018-03-20] MEDS: CARBOHYDRATES FOR HYPOGLYCEMIA PO PRN ×2 (11:28→11:52)
--- NOTE | 2018-03-20 12:23 | Progress Note ---
Medicine Progress Note Date & Time of Visit: Mar 20, 2018 at 11:51. Subjective Pt was seen and examined Sitting in bed with no distress talking to someone Upper enter his the person the room, the person left the room for privacy Pt said that he is having a lot of abdominal pain He said that the dilaudid only last less than 3 hours Pt said that he is only getting clear liquid diet because of the pain Nurse said that pt has been request the dilaudid every 3 hrs He said that he had diarrhea this morning Denies any chest pain, palpitation, dizziness and SOB Objective Last 8 Hrs Date Time Temp Pulse Resp B/P (MAP) Pulse Ox O2 Delivery O2 Flow Rate FiO2 03/20/18 07:24 36.5 68 18 115/71 (86) 96 Room Air Physical Exam: General- No acute distress Head- atraumatic Eyes- PERRL, EOMI ENT- oropharynx clear Neck- supple, no JVD Lungs- clear to auscultation Heart- regular rhythm Abdomen- normal bowel sounds, soft, + tenderness, No guarding Extremities- no pretibial edema, no calf tenderness Neuro- alert, oriented x 3; PERRL, EOMI; no facial palsy Laboratory Results: Last 24 Hours Test 03/19/18 12:03 03/19/18 16:29 03/19/18 20:13 03/20/18 07:35 Bedside Glucose 75 mg/dl 214 mg/dl 167 mg/dl 361 mg/dl Test 03/20/18 07:36 03/20/18 07:54 03/20/18 08:28 03/20/18 11:22 Bedside Glucose 407 mg/dl 396 mg/dl 36 mg/dl Estimated Average Glucose 160 mg/dl Hemoglobin A1c 7.2 % Test 03/20/18 11:24 03/20/18 11:46 Bedside Glucose 42 mg/dl Assessment & Plan Patient is a 52 year old male with a PMH of chronic pancreatitis, anxiety, hep C , epilepsy, gerd, HLD and DM that was transferred from [facility] due to abdominal pain after he was found to have a pancreatic mass on CT scan. Recurrent acute pancreatitis w/ pancreatic mass No elevation in lipase on admission wnl Has been requested Dilaudid q 3 hr for the pain We will give her Toradol with small dose of Dilaudid if needed MRCP done showed cystic pancreatic lesions, no significant ductal dilatation MRI abdomen done unchanged abnormal appearance involving the pancreatic head, which is ill-defined and demonstrates foci of cystic change and large calcifications. Will decrease IVF to 80 ml/hr On clear liquid diet GI on board recommended symptomatic management with IVF and pain control GI recommended follow up with surgical oncology with Dr. Quincy Walker to discuss elective resection to ensure no others pathologic changes and as well as to help with the pain Will consider to add oral narcotic and decrease the Dilaudid frequency Pain management consult MRI abdomen report 1. Significantly motion compromised examination. 2. There is mild inflammatory stranding around the pancreatic head, with associated wall thickening in the adjacent duodenum. Top differential considerations are pancreatitis versus duodenitis. Clinical correlation will be required. 3. There is unchanged abnormal appearance involving the pancreatic head, which is ill-defined and demonstrates foci of cystic change and large calcifications. This is indeterminant and may represent sidebranch IPMN's in conjunction with the sequelae of chronic pancreatitis. Underlying mass lesion involving the pancreas and/or duodenum would be impossible to exclude. These findings have been present on prior examinations dating back to 2012. Gastroenterology consultation and follow-up with ERCP is recommended for further assessment. 4. The gallbladder is surgically absent. Mild intra and extrahepatic biliary ductal dilatation is noted. There is no evidence of choledocholithiasis. There is also chronic dilatation of the pancreatic duct. 5. Small pleural effusions. Mild Protein Calorie Malnutrition Nutrition assessment T2DM Hba1c 7.2 Continue holding metformin Pharmacy on board for glycemic management HLD Continue holding statin GERD Will change PPI to PO Epilepsy Will resume gabapentin Continue Lamictal Anxiety On Xanax prn for anxiety stable Chronic pain On oxycodone prn As been getting dilaudid Hx of Hep C DVT lovenox 40mg subq CODE STATUS Full code Current Inpatient Medications: Current Inpatient Medications Medications (Trade) Dose Ordered Sig/Omar Route Start Time Stop Time Status Last Admin Dose Admin Enoxaparin Sodium (Lovenox Inj) 40 mg Q24H SQ 03/16/18 09:00 04/15/18 08:59 Al Hydrox/Mg Hydrox/Simethicone (Maalox Max Susp) 15 ml Q4H PRN PO 03/16/18 03:15 04/15/18 03:14 Magnesium Hydroxide (Milk Of Magnesia Susp) 30 ml Q6H PRN PO 03/16/18 03:15 04/15/18 03:14 Polyethylene (Miralax Powder Packet) 17 gm DAILY PRN PO 03/16/18 03:15 04/15/18 03:14 Ondansetron HCl (Zofran Inj) 4 mg Q6H PRN IV 03/16/18 03:15 04/15/18 03:14 Lactated Ringer's 1,000 ml @ 150 mls/hr Q6H40M IV 03/16/18 03:15 04/15/18 03:14 03/20/18 04:56 150 MLS/HR Glucose (Glucose 40% Gel) 15-30 GRAMS 15 GRAMS... UD PRN PO 03/16/18 04:00 04/15/18 03:59 Glucose (Glucose Chew Tab) 4-8 Tablets 4 Tabl... UD PRN PO 03/16/18 04:00 04/15/18 03:59 Dextrose (Dextrose 50% 50ML Syringe) 25-50ML 25ML FOR ... UD PRN IV 03/16/18 04:00 04/15/18 03:59 Glucagon (Glucagon Inj) 1 mg UD PRN IM 03/16/18 04:00 04/15/18 03:59 Carbohydrates (Carbohydrates For Hypoglycemia) 15-30 GRAMS 15 grams if BSG 54-69... UD PRN PO 03/16/18 04:00 04/15/18 03:59 03/20/18 11:28 30 GM Alprazolam (Xanax Tab) 1 mg TID PO 03/16/18 09:00 04/15/18 08:59 03/20/18 07:56 1 MG Lamotrigine (Lamictal Tab) 50 mg BID PO 03/16/18 09:00 04/15/18 08:59 03/20/18 07:59 50 MG Ketorolac Tromethamine (Toradol Inj) 30 mg Q6H PRN IV 03/16/18 09:30 03/21/18 09:29 03/17/18 06:42 30 MG Pantoprazole Sodium 40 mg/ Syringe 10 ml @ 5 mls/min BID IV 03/16/18 21:00 04/15/18 10:59 03/20/18 07:56 5 MLS/MIN Gadobutrol (Gadavist) 6.5 mmol UD PRN IV 03/16/18 20:30 03/20/18 20:29 Insulin Aspart (novoLOG ASPART) SLIDING SCALE G... ACHS SC 03/17/18 11:00 04/16/18 10:59 03/20/18 09:12 17 UNITS Hydromorphone HCl (Dilaudid Inj) 0.5 mg Q3H IV 03/19/18 11:00 04/01/18 11:59 03/20/18 11:08 0.5 MG Miscellaneous Information (Consult Glycemic Management Pharmacy) 1 ea UD PRN N/A 03/20/18 08:15 04/19/18 08:14
[2018-03-20 13:43] VITALS: BMI 20.9
[2018-03-20] MEDS ORDERED: NURSING VERBAL MED ORDER ONE (13:45)
[2018-03-20 14:57] VITALS: BP 138/58; PULSE 71; TEMP 36.5; O2SAT 96
[2018-03-20 17:41] VITALS: BMI 20.9
[2018-03-20] MEDS ORDERED: LORAZEPAM INJ 0.5 MG in SYRINGE 0.25 ML IV ONE (21:00)
[2018-03-20 22:26] VITALS: BP 103/69; PULSE 63; TEMP 36.4; O2SAT 96
[2018-03-21] VITALS (7 sets, daily range): BP systolic 80–111; BP diastolic 46–63; PULSE 48–71; TEMP 36.3–36.8; O2SAT 94–98
[2018-03-21] MEDS: LACTATED RINGER'S 1000ML 1,000 ML IV SCH ×2 (02:00→14:35)
[2018-03-21] MEDS: HYDROmorphone INJ 0.5 MG/0.5 ML SYR IV SCH ×2 (02:01→04:50)
[2018-03-21 06:34] LABS: ALBUMIN 2.7 gm/dl (3.4-5.0); CALCIUM 8.7 mg/dl (8.5-10.1); CREATININE 0.62 mg/dl (0.60-1.40); POTASSIUM 3.7 mmol/L (3.5-5.1); TOTAL PROTEIN 6.5 gm/dl (6.4-8.2)
[2018-03-21] MEDS ORDERED: OXYCODONE HCL IR 5 MG TAB (IMMEDIATE RELEASE) PO PRN (07:45)
[2018-03-21] MEDS ORDERED: HYDROmorphone INJ 0.5 MG/0.5 ML SYR IV SCH ×2 (08:00→12:00)
[2018-03-21] MEDS: ENOXAPARIN 40 MG/0.4 ML SYR SQ SCH (08:10)
[2018-03-21] MEDS: INSULIN ASPART 100 UNITS/ML 3 ML PEN SC SCH ×4 (08:16→20:53)
[2018-03-21] MEDS: PANTOprazole INJ 40 MG in SYRINGE 0 ML IV SCH (08:18)
[2018-03-21] MEDS: ALPRAZOLAM 0.5 MG TAB PO SCH ×3 (08:18→20:58)
[2018-03-21] MEDS: POLYETHYLENE (MIRALAX) 17 GM PACK PO PRN (08:24)
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
[2018-03-21] MEDS: INSULIN HUMAN NPH SC SCH (09:11)
[2018-03-21] MEDS: DOCUSATE SODIUM 100 MG CAP PO SCH ×2 (10:11→20:58)
[2018-03-21] MEDS: SENNA 8.6 MG TAB PO SCH (10:11)
--- NOTE | 2018-03-21 10:54 | Pharmacy Progress Note ---
Glycemic Control Progress Note Date of Service Mar 21, 2018. Scope Glycemic Pharmacist consulted for glycemic control to write orders per [facility] inpatient glycemic control protocol. Objective Accuchecks BSG (last 24hrs): Test 03/20/18 11:22 03/20/18 11:24 03/20/18 11:46 03/20/18 12:03 Bedside Glucose 36 mg/dl (70-99) 42 mg/dl (70-99) 58 mg/dl (70-99) 81 mg/dl (70-99) Test 03/20/18 16:41 03/20/18 20:09 03/21/18 05:30 03/21/18 07:24 Bedside Glucose 106 mg/dl (70-99) 202 mg/dl (70-99) 150 mg/dl (70-99) Random Glucose 117 mg/dl (70-99) HbA1c: Test 03/20/18 08:28 Hemoglobin A1c 7.2 % (4.5-5.6) H Recent Pertinent Medications The patient is currently receiving: * Basal insulin: Lantus 12 units SQ qAM on 03/20 * Correctional Insulin: Novolog Correction per scale ACHS Goal Range: Low 120 mg/dL - High 150 mg/dL Correction Factor: 35 mg/dL/unit * Prandial insulin: Per carb ratio of 1 unit per 12 grams CHO consumed Outpatient Anti-Diabetic Meds Outpatient Anti-diabetic Regimen: * metformin 1000 mg BID * Humulin N 8 units with breakfast and 10 units with dinner Assessment & Plan ASSESSMENT: * 52 yr old T2DM male admitted for recurrent pancreatitis. * Patient had fluctuating BSGs on Novolog correction factor/carb ratio only, therefore basal insulin was added yesterday. Patient had rapid improvement in BSG and was overcorrected with a combination of novolog + IV regular insulin bolus leading to asymptomatic hypoglycemia at lunchtime. No further hypoglycemia noted. He received a total of 35 units of SQ insulin yesterday. * Changes need to regimen: * Fasting BSG improved to 150 mg/dL today. I will transition to NPH since this is what Elvira uses as an outpatient. * Post-prandial BSGs continue to fluctuate. Yesterday, I loosened Novolog CF/ CR significantly after hypoglycemic event. BSG increased from 106 mg/dL at dinner to 202 mg/dL at HS. I suspect current parameters are too conservative. Will begin to slowly tighten. PLAN FOR INPATIENT GLYCEMIC CONTROL: * Holding outpatient oral diabetes medications * Basal Insulin * NPH 8 units SQ with breakfast, 10 units SQ with dinner (home dose) * Correctional Insulin - tighten * NOVOLOG per scale ACHS or Q6hrs while NPO * Goal Range: Low 120 mg/dL - High 150 mg/dL * Correction Factor: 30 mg/dL/unit * Nutritional / Prandial insulin per carb ratio of 1 unit per 10 grams CHO consumed * Please note that the plan above was derived based on current level of insulin resistance and hospital stress. These recommendations are appropriate for inpatient admission only. Plan of care upon discharge will need to be reassessed to avoid potential outpatient hypo/hyperglycemia. Thank you.
[2018-03-21] MEDS: TAPENTADOL HCL 50 MG TAB PO PRN ×3 (11:28→21:36)
[2018-03-21] MEDS ORDERED: NURSING VERBAL MED ORDER ONE (15:15)
[2018-03-21] MEDS ORDERED: HYDROmorphone INJ 0.5 MG/0.5 ML SYR IV PRN (15:30)
[2018-03-21] MEDS ORDERED: INSULIN HUMAN NPH SC ONE (17:00)
--- NOTE | 2018-03-21 19:00 | Progress Note ---
Medicine Progress Note Date & Time of Visit: Mar 21, 2018 at 18:56. Subjective Pt was seen and examined Lying in bed with no distress Pt said that he continues to have pain During my exam, I pushed on his abdomen while auscultating his chest, he did not complaint of any pain He wants his diet to advanced Denies any chest pain, palpitation and SOB Objective Last 8 Hrs Date Time Temp Pulse Resp B/P (MAP) Pulse Ox O2 Delivery O2 Flow Rate FiO2 03/21/18 17:44 64 111/63 (79) Room Air 03/21/18 16:00 96 Room Air 03/21/18 15:59 58 89/49 (62) 96 Room Air 03/21/18 15:46 36.4 48 18 80/46 (57) 96 Room Air Physical Exam: General- No acute distress Head- atraumatic Eyes- PERRL, EOMI ENT- oropharynx clear Neck- supple, no JVD Lungs- clear to auscultation Heart- regular rhythm Abdomen- normal bowel sounds, soft, + tenderness, No guarding Extremities- no pretibial edema, no calf tenderness Neuro- alert, oriented x 3; PERRL, EOMI; no facial palsy Laboratory Results: Last 24 Hours Test 03/20/18 20:09 03/21/18 05:30 03/21/18 07:24 03/21/18 11:41 Bedside Glucose 202 mg/dl 150 mg/dl 138 mg/dl Sodium Level 141 mmol/L Potassium Level 3.7 mmol/L Chloride Level 105 mmol/L Carbon Dioxide Level 29 mmol/L Anion Gap 7.0 mmol/L Blood Urea Nitrogen 4 mg/dl Creatinine 0.62 mg/dl Est Creatinine Clear Calc Drug Dose 127.5 ml/min Estimated GFR () 130.3 Estimated GFR (Non- 112.5 BUN/Creatinine Ratio 5.7 Random Glucose 117 mg/dl Calcium Level 8.7 mg/dl Total Bilirubin 0.3 mg/dl Aspartate Amino Transf (AST/SGOT) 41 U/L Alanine Aminotransferase (ALT/SGPT) 82 U/L Alkaline Phosphatase 298 U/L Total Protein 6.5 gm/dl Albumin 2.7 gm/dl Globulin 3.8 gm/dl Albumin/Globulin Ratio 0.7 Test 03/21/18 16:26 Bedside Glucose 134 mg/dl Assessment & Plan Patient is a 52 year old male with a PMH of chronic pancreatitis, anxiety, hep C , epilepsy, gerd, HLD and DM that was transferred from [facility] due to abdominal pain after he was found to have a pancreatic mass on CT scan. Recurrent acute pancreatitis w/ pancreatic mass No elevation in lipase on admission wnl Has been requested Dilaudid q 3 hr for the pain We will give her Toradol with small dose of Dilaudid if needed MRCP done showed cystic pancreatic lesions, no significant ductal dilatation MRI abdomen done unchanged abnormal appearance involving the pancreatic head, which is ill-defined and demonstrates foci of cystic change and large calcifications. Will decrease IVF to 80 ml/hr On clear liquid diet GI on board recommended symptomatic management with IVF and pain control GI recommended follow up with surgical oncology with Dr. Quincy Walker to discuss elective resection to ensure no others pathologic changes and as well as to help with the pain Will consider to add oral narcotic and decrease the Dilaudid frequency Pain management consulted recommended to titrate the dilaudid off Starting on Nucynta 50mg Will plan to d/c the dilaudid MRI abdomen report 1. Significantly motion compromised examination. 2. There is mild inflammatory stranding around the pancreatic head, with associated wall thickening in the adjacent duodenum. Top differential considerations are pancreatitis versus duodenitis. Clinical correlation will be required. 3. There is unchanged abnormal appearance involving the pancreatic head, which is ill-defined and demonstrates foci of cystic change and large calcifications. This is indeterminant and may represent sidebranch IPMN's in conjunction with the sequelae of chronic pancreatitis. Underlying mass lesion involving the pancreas and/or duodenum would be impossible to exclude. These findings have been present on prior examinations dating back to 2012. Gastroenterology consultation and follow-up with ERCP is recommended for further assessment. 4. The gallbladder is surgically absent. Mild intra and extrahepatic biliary ductal dilatation is noted. There is no evidence of choledocholithiasis. There is also chronic dilatation of the pancreatic duct. 5. Small pleural effusions. Mild Protein Calorie Malnutrition Nutrition assessment T2DM Hba1c 7.2 Continue holding metformin Pharmacy on board for glycemic management HLD Continue holding statin GERD Will change PPI to PO Epilepsy Will resume gabapentin Continue Lamictal Anxiety On Xanax prn for anxiety stable Chronic pain On oxycodone prn As been getting dilaudid Hx of Hep C DVT lovenox 40mg subq CODE STATUS Full code Current Inpatient Medications: Current Inpatient Medications Medications (Trade) Dose Ordered Sig/Omar Route Start Time Stop Time Status Last Admin Dose Admin Enoxaparin Sodium (Lovenox Inj) 40 mg Q24H SQ 03/16/18 09:00 04/15/18 08:59 Al Hydrox/Mg Hydrox/Simethicone (Maalox Max Susp) 15 ml Q4H PRN PO 03/16/18 03:15 04/15/18 03:14 Magnesium Hydroxide (Milk Of Magnesia Susp) 30 ml Q6H PRN PO 03/16/18 03:15 04/15/18 03:14 Polyethylene (Miralax Powder Packet) 17 gm DAILY PRN PO 03/16/18 03:15 04/15/18 03:14 03/21/18 08:24 17 GM Ondansetron HCl (Zofran Inj) 4 mg Q6H PRN IV 03/16/18 03:15 04/15/18 03:14 Glucose (Glucose 40% Gel) 15-30 GRAMS 15 GRAMS... UD PRN PO 03/16/18 04:00 04/15/18 03:59 Glucose (Glucose Chew Tab) 4-8 Tablets 4 Tabl... UD PRN PO 03/16/18 04:00 04/15/18 03:59 Dextrose (Dextrose 50% 50ML Syringe) 25-50ML 25ML FOR ... UD PRN IV 03/16/18 04:00 04/15/18 03:59 Glucagon (Glucagon Inj) 1 mg UD PRN IM 03/16/18 04:00 04/15/18 03:59 Carbohydrates (Carbohydrates For Hypoglycemia) 15-30 GRAMS 15 grams if BSG 54-69... UD PRN PO 03/16/18 04:00 04/15/18 03:59 03/20/18 11:52 15 GM Alprazolam (Xanax Tab) 1 mg TID PO 03/16/18 09:00 04/15/18 08:59 03/21/18 14:32 1 MG Lamotrigine (Lamictal Tab) 50 mg BID PO 03/16/18 09:00 04/15/18 08:59 03/21/18 08:10 50 MG Pantoprazole Sodium 40 mg/ Syringe 10 ml @ 5 mls/min BID IV 8/9/18 21:00 04/15/18 10:59 03/21/18 08:18 5 MLS/MIN Insulin Aspart (novoLOG ASPART) SLIDING SCALE G... ACHS SC 03/17/18 11:00 04/16/18 10:59 03/21/18 17:36 3 UNITS Miscellaneous Information (Consult Glycemic Management Pharmacy) 1 ea UD PRN N/A 03/20/18 08:15 04/19/18 08:14 Lactated Ringer's 1,000 ml @ 75 mls/hr [id number] IV 03/20/18 13:45 04/19/18 13:44 03/21/18 14:35 75 MLS/HR Insulin Human NPH (novoLIN-N NPH) 8 units QDB SC 03/21/18 08:30 04/20/18 08:29 03/21/18 09:11 8 UNITS Docusate Sodium (coLACE CAP) 100 mg BID PO 03/21/18 09:00 04/20/18 08:59 03/21/18 10:11 100 MG Senna (Senokot Tab) 8.6 mg QAM PO 03/21/18 09:00 04/20/18 08:59 03/21/18 10:11 8.6 MG Tapentadol (Nucynta Tab) 50 mg Q4H PRN PO 03/21/18 08:45 04/20/18 08:44 03/21/18 17:46 50 MG Insulin Human NPH (novoLIN-N NPH) 10 units QDD SC 03/22/18 17:00 04/21/18 16:59 Hydromorphone HCl (Dilaudid Inj) 0.5 mg Q6 PRN IV 03/21/18 15:30 04/04/18 15:29
[2018-03-21] MEDS: PANTOprazole SOD 40 MG TAB PO SCH (20:58)
[2018-03-22] MEDS: TAPENTADOL HCL 50 MG TAB PO PRN ×5 (02:07→21:03)
[2018-03-22] MEDS: LACTATED RINGER'S 1000ML 1,000 ML IV SCH (04:42)
[2018-03-22 07:02] LABS: HEMATOCRIT 38.1 % (42-52); HEMOGLOBIN 12.5 g/dL (14.0-18.0); MEAN CELL VOLUME 95.3 fL (80-100); MEAN CORPUSCULAR HEMOGLOBIN 31.3 pg (25-34); MEAN CORPUSCULAR HGB CONC 32.8 g/dl (32-36); MEAN PLATELET VOLUME 11.9 fL (7.4-10.4); PLATELET COUNT 269 K/uL (130-400); RED CELL DISTRIBUTION WIDTH CV 12.8 % (11.5-14.5); RED CELL DISTRIBUTION WIDTH SD 44.6 fL (36.4-46.3); WHITE BLOOD COUNT 5.39 K/uL (4.8-10.8)
[2018-03-22 07:21] VITALS: BP 101/65; PULSE 52; TEMP 36.7; O2SAT 96
[2018-03-22 07:37] LABS: CALCIUM 8.9 mg/dl (8.5-10.1); CREATININE 0.61 mg/dl (0.60-1.40); POTASSIUM 3.7 mmol/L (3.5-5.1)
[2018-03-22] MEDS: ALPRAZOLAM 0.5 MG TAB PO SCH ×3 (08:10→21:03)
[2018-03-22] MEDS: SENNA 8.6 MG TAB PO SCH (08:14)
[2018-03-22] MEDS: ENOXAPARIN 40 MG/0.4 ML SYR SQ SCH (08:14)
[2018-03-22] MEDS: DOCUSATE SODIUM 100 MG CAP PO SCH ×2 (08:14→21:04)
[2018-03-22] MEDS: PANTOprazole SOD 40 MG TAB PO SCH ×2 (08:14→21:04)
[2018-03-22] MEDS: INSULIN ASPART 100 UNITS/ML 3 ML PEN SC SCH ×3 (08:17→17:32)
[2018-03-22] MEDS: INSULIN HUMAN NPH SC SCH ×2 (08:17→17:33)
--- NOTE | 2018-03-22 08:44 | Pain Management Progress Note ---
Pain Management Progress Note Date of Service Mar 22, 2018. Subjective Mr. Zimmerman is a 52-year-old white male who was admitted due to intractable midepigastric abdominal pain with long-standing history of pancreatic mass, hepatitis C and chronic pancreatitis. Patient was transitioned from oxycodone and IV hydromorphone to p.o. Nucynta 50 mg every 4 hours yesterday. The patient initially reported today that the Nucynta does not diminish his pain. Upon review of nursing notes it appears that his pain scales improved each time that he utilize Nucynta therapy. Upon discussing this further he reports that it "takes the edge off". The patient again requested hydromorphone or oxycodone. He describes the discomfort as burning in the midepigastric region without radiation. He denies any nausea or vomiting. He denies change in location characteristic of his typical pain. Patient reported that he tolerated Nucynta without notable side effects. He reports his pain is they have a 9/10 at this time. Patient has no further constitutional complaints. Plan of care discussed with Dr. Aretha Shipman. Pain Location 1 - Objective Vital Signs: Last Vital Signs Documentation Date Time Temp Pulse Resp B/P (MAP) Pulse Ox O2 Delivery O2 Flow Rate FiO2 03/22/18 07:21 36.7 52 18 101/65 (77) 96 Room Air Physical Exam: General: Patient sitting quietly in exam room in no acute distress upon entering. Speech and thought process appropriate. Mood and affect appropriate. Cognition intact. Patient was able to sit up from a supine position without obvious discomfort. Abdomen: Soft and nondistended. Midepigastric tenderness to palpation. No rebound or guarding. Laboratory Laboratory Findings 03/22/18 06:13 Assessment 1. Midepigastric abdominal pain secondary to chronic pancreatitis with known pancreatic mass 2. Hepatitis C Recommendations 1. Will adjust Nucynta IR from 50 mg every 4 hours to 75 mg every 4 hours 2. Limited utilization of IV hydromorphone was recommended 3. Patient is not a candidate for interventional treatment at this time pending further GI surgical evaluation. His potential for celiac plexus block will be determined pending his GI surgical evaluation.
--- NOTE | 2018-03-22 11:13 | Progress Note ---
Medicine Progress Note Date & Time of Visit: Mar 22, 2018 at 11:05. Subjective Pt was seen and examined Sitting in bed with no distress Pt said that he continues to have abdominal pain He said that the Nucynta did not help much Tolerated diet Denies any chest pain, palpitation and SOB Addendum After I discontinued the IVF, I saw pt at the vending machine by the cafeteria He was joking and laughing with someone with no signs of abdominal pain He was standing straight . Objective Last 8 Hrs Date Time Temp Pulse Resp B/P (MAP) Pulse Ox O2 Delivery O2 Flow Rate FiO2 03/22/18 08:00 Room Air 03/22/18 07:21 36.7 52 18 101/65 (77) 96 Room Air Physical Exam: General- No acute distress Head- atraumatic Eyes- PERRL, EOMI ENT- oropharynx clear Neck- supple, no JVD Lungs- clear to auscultation Heart- regular rhythm Abdomen- normal bowel sounds, soft, + tenderness, No guarding Extremities- no pretibial edema, no calf tenderness Neuro- alert, oriented x 3; PERRL, EOMI; no facial palsy Laboratory Results: Last 24 Hours Test 03/21/18 11:41 03/21/18 16:26 03/21/18 19:54 03/22/18 06:13 Bedside Glucose 138 mg/dl 134 mg/dl 108 mg/dl White Blood Count 5.39 K/uL Red Blood Count 4.00 M/uL Hemoglobin 12.5 g/dL Hematocrit 38.1 % Mean Corpuscular Volume 95.3 fL Mean Corpuscular Hemoglobin 31.3 pg Mean Corpuscular Hemoglobin Concent 32.8 g/dl RDW Standard Deviation 44.6 fL RDW Coefficient of Variation 12.8 % Platelet Count 269 K/uL Mean Platelet Volume 11.9 fL Sodium Level 141 mmol/L Potassium Level 3.7 mmol/L Chloride Level 106 mmol/L Carbon Dioxide Level 29 mmol/L Anion Gap 6.0 mmol/L Blood Urea Nitrogen 5 mg/dl Creatinine 0.61 mg/dl Est Creatinine Clear Calc Drug Dose 129.6 ml/min Estimated GFR () 131.2 Estimated GFR (Non- 113.2 BUN/Creatinine Ratio 7.7 Random Glucose 136 mg/dl Calcium Level 8.9 mg/dl Test 03/22/18 07:24 Bedside Glucose 108 mg/dl Assessment & Plan Patient is a 52 year old male with a PMH of chronic pancreatitis, anxiety, hep C , epilepsy, gerd, HLD and DM that was transferred from [facility] due to abdominal pain after he was found to have a pancreatic mass on CT scan. Recurrent acute pancreatitis w/ pancreatic mass No elevation in lipase on admission wnl Has been requested Dilaudid q 3 hr for the pain We will give her Toradol with small dose of Dilaudid if needed MRCP done showed cystic pancreatic lesions, no significant ductal dilatation MRI abdomen done unchanged abnormal appearance involving the pancreatic head, which is ill-defined and demonstrates foci of cystic change and large calcifications. Will decrease IVF to 80 ml/hr On clear liquid diet GI on board recommended symptomatic management with IVF and pain control GI recommended follow up with surgical oncology with Dr. Quincy Walker to discuss elective resection to ensure no others pathologic changes and as well as to help with the pain Will consider to add oral narcotic and decrease the Dilaudid frequency Pain management consulted recommended to titrate the dilaudid off Nucynta increase to 75mg q4 hr Consider celiac plexus block in the future after seeing oncology surgery for possible elective surgery Plan to d/c the dilaudid MRI abdomen report 1. Significantly motion compromised examination. 2. There is mild inflammatory stranding around the pancreatic head, with associated wall thickening in the adjacent duodenum. Top differential considerations are pancreatitis versus duodenitis. Clinical correlation will be required. 3. There is unchanged abnormal appearance involving the pancreatic head, which is ill-defined and demonstrates foci of cystic change and large calcifications. This is indeterminant and may represent sidebranch IPMN's in conjunction with the sequelae of chronic pancreatitis. Underlying mass lesion involving the pancreas and/or duodenum would be impossible to exclude. These findings have been present on prior examinations dating back to 2012. Gastroenterology consultation and follow-up with ERCP is recommended for further assessment. 4. The gallbladder is surgically absent. Mild intra and extrahepatic biliary ductal dilatation is noted. There is no evidence of choledocholithiasis. There is also chronic dilatation of the pancreatic duct. 5. Small pleural effusions. Mild Protein Calorie Malnutrition Nutrition assessment T2DM Hba1c 7.2 Continue holding metformin Pharmacy on board for glycemic management HLD Continue holding statin GERD Will change PPI to PO Epilepsy Will resume gabapentin Continue Lamictal Anxiety On Xanax prn for anxiety stable Chronic pain On oxycodone prn As been getting dilaudid Hx of Hep C DVT Lovenox 40mg subq CODE STATUS Full code Current Inpatient Medications: Current Inpatient Medications Medications (Trade) Dose Ordered Sig/Omar Route Start Time Stop Time Status Last Admin Dose Admin Enoxaparin Sodium (Lovenox Inj) 40 mg Q24H SQ 03/16/18 09:00 04/15/18 08:59 Al Hydrox/Mg Hydrox/Simethicone (Maalox Max Susp) 15 ml Q4H PRN PO 03/16/18 03:15 04/15/18 03:14 Magnesium Hydroxide (Milk Of Magnesia Susp) 30 ml Q6H PRN PO 03/16/18 03:15 04/15/18 03:14 Polyethylene (Miralax Powder Packet) 17 gm DAILY PRN PO 03/16/18 03:15 04/15/18 03:14 03/21/18 08:24 17 GM Ondansetron HCl (Zofran Inj) 4 mg Q6H PRN IV 03/16/18 03:15 04/15/18 03:14 Glucose (Glucose 40% Gel) 15-30 GRAMS 15 GRAMS... UD PRN PO 03/16/18 04:00 04/15/18 03:59 Glucose (Glucose Chew Tab) 4-8 Tablets 4 Tabl... UD PRN PO 03/16/18 04:00 04/15/18 03:59 Dextrose (Dextrose 50% 50ML Syringe) 25-50ML 25ML FOR ... UD PRN IV 03/16/18 04:00 04/15/18 03:59 Glucagon (Glucagon Inj) 1 mg UD PRN IM 03/16/18 04:00 04/15/18 03:59 Carbohydrates (Carbohydrates For Hypoglycemia) 15-30 GRAMS 15 grams if BSG 54-69... UD PRN PO 03/16/18 04:00 04/15/18 03:59 03/20/18 11:52 15 GM Alprazolam (Xanax Tab) 1 mg TID PO 03/16/18 09:00 04/15/18 08:59 03/22/18 08:10 1 MG Lamotrigine (Lamictal Tab) 50 mg BID PO 03/16/18 09:00 04/15/18 08:59 03/22/18 08:14 50 MG Insulin Aspart (novoLOG ASPART) SLIDING SCALE G... ACHS SC 03/17/18 11:00 04/16/18 10:59 03/22/18 08:17 3 UNITS Miscellaneous Information (Consult Glycemic Management Pharmacy) 1 ea UD PRN N/A 03/20/18 08:15 04/19/18 08:14 Lactated Ringer's 1,000 ml @ 75 mls/hr [id number] IV 03/20/18 13:45 04/19/18 13:44 03/22/18 04:42 75 MLS/HR Insulin Human NPH (novoLIN-N NPH) 8 units QDB SC 03/21/18 08:30 04/20/18 08:29 03/22/18 08:17 8 UNITS Docusate Sodium (coLACE CAP) 100 mg BID PO 03/21/18 09:00 04/20/18 08:59 03/22/18 08:14 100 MG Senna (Senokot Tab) 8.6 mg QAM PO 03/21/18 09:00 04/20/18 08:59 03/22/18 08:14 8.6 MG Insulin Human NPH (novoLIN-N NPH) 10 units QDD SC 03/22/18 17:00 04/21/18 16:59 Hydromorphone HCl (Dilaudid Inj) 0.5 mg Q6 PRN IV 03/21/18 15:30 04/04/18 15:29 Pantoprazole Sodium (Protonix Tab) 40 mg BID PO 03/21/18 21:00 04/20/18 20:59 03/22/18 08:14 40 MG Tapentadol (Nucynta Tab) 75 mg Q4H PRN PO 03/22/18 08:45 04/21/18 08:44
[2018-03-22 14:36] VITALS: BP 108/68; PULSE 76; TEMP 36.5; O2SAT 98
[2018-03-22 15:50] VITALS: O2SAT 98
[2018-03-22] MEDS ORDERED: INSULIN HUMAN NPH SC SCH (17:00)
[2018-03-22] MEDS: CARBOHYDRATES FOR HYPOGLYCEMIA PO PRN (20:38)
[2018-03-22 23:33] VITALS: BP_SYST 86; BP_SYST 87; BP_DIAS 50; BP_DIAS 53; PULSE 56; TEMP 36.6; O2SAT 96
[2018-03-23] MEDS: TAPENTADOL HCL 50 MG TAB PO PRN ×3 (03:52→12:09)
[2018-03-23 04:00] VITALS: O2SAT 98
[2018-03-23 07:13] VITALS: BP 96/51; PULSE 69; TEMP 36.8; O2SAT 96
[2018-03-23] MEDS: PANTOprazole SOD 40 MG TAB PO SCH (07:44)
[2018-03-23] MEDS: DOCUSATE SODIUM 100 MG CAP PO SCH (07:44)
[2018-03-23] MEDS: SENNA 8.6 MG TAB PO SCH (07:44)
[2018-03-23] MEDS: ENOXAPARIN 40 MG/0.4 ML SYR SQ SCH (07:45)
[2018-03-23] MEDS: POLYETHYLENE (MIRALAX) 17 GM PACK PO PRN (07:50)
[2018-03-23] MEDS: INSULIN ASPART 100 UNITS/ML 3 ML PEN SC SCH ×3 (07:54→18:00)
[2018-03-23] MEDS: INSULIN HUMAN NPH SC SCH ×2 (07:55→18:01)
[2018-03-23 08:00] VITALS: O2SAT 96
[2018-03-23] MEDS: ALPRAZOLAM 0.5 MG TAB PO SCH ×2 (08:24→14:04)
[2018-03-23 11:55] VITALS: BP 96/51; PULSE 69; TEMP 36.8; O2SAT 96
[2018-03-23 13:47] VITALS: Ht 177.8 cm; Wt 66.2 kg
--- NOTE | 2018-03-23 14:03 | Pharmacy Progress Note ---
Pharmacy Glycemic Short Note 2 Date of Service Mar 23, 2018. OUTPATIENT ANTIDIABETIC REGIMEN: * Metformin 1000 mg BID * Humulin N 8 units with breakfast and 10 units with dinner Test 03/22/18 16:33 03/22/18 20:28 03/22/18 20:29 03/22/18 20:45 Bedside Glucose 246 mg/dl (70-99) 43 mg/dl (70-99) 40 mg/dl (70-99) 59 mg/dl (70-99) Test 03/22/18 21:04 03/23/18 07:29 03/23/18 11:20 Bedside Glucose 76 mg/dl (70-99) 246 mg/dl (70-99) 70 mg/dl (70-99) ASSESSMENT: * 52 yr old T2DM male admitted for recurrent pancreatitis. * Patient had fluctuating BSGs on Novolog correction factor/carb ratio only, therefore basal insulin was added 03/20. Patient had rapid improvement in BSG and was overcorrected with a combination of novolog + IV regular insulin bolus leading to asymptomatic hypoglycemia at lunchtime. * Patient transitioned from Lantus to NPH on 03/21, with good control, but then had a hypoglycemic episode last night at 43mg/dl, and another low at 70mg/dl today prior to lunch. Unfortunately then patient's blood sugar overcorrects to the 200s. * Changes need to regimen: * Fasting BSG 246 mg/dL today. Likely from having low last night, no changes in NPH. * Post-prandial BSGs continue to fluctuate, will loosen CF and CR since no changes in NPH at this time. PLAN FOR INPATIENT GLYCEMIC CONTROL: * Hold outpatient oral diabetes medications * Basal insulin * NPH 8 units SQ BID * Bolus insulin * NovoLog per scale ACHS or Q6hrs while NPO * Goal Range: Low 120 mg/dL - High 150 mg/dL for patient with frequent hypoglycemia * LOOSEN: Correction Factor: 35 mg/dL/unit * LOOSEN: Nutritional / Prandial insulin per carb ratio of 1 unit per 12 grams CHO consumed PLAN FOR DISCHARGE: * A1c 7.2%, continue home regimen, pt reports no hypoglycemia as outpatient. * Pt reported "homeless" to operating room aide in her note.
--- NOTE | 2018-03-23 14:23 | Progress Note ---
Medicine Progress Note Date & Time of Visit: Mar 23, 2018 at 14:19. Subjective Pt was seen and examined Sitting in bed with no distress Tolerated his diet Pt would like to be discharged today He said that his roommate place will be torn down in the next 2 weeks He said that he has to get his stuff to move to his daughter Denies any chest pain, palpitation, dizziness and SOB Objective Last 8 Hrs Date Time Temp Pulse Resp B/P (MAP) Pulse Ox O2 Delivery O2 Flow Rate FiO2 03/23/18 11:55 36.8 69 20 96 Room Air 03/23/18 08:00 96 Room Air 03/23/18 07:13 36.8 69 20 96/51 (66) 96 Room Air Physical Exam: General- No acute distress Head- atraumatic Eyes- PERRL, EOMI ENT- oropharynx clear Neck- supple, no JVD Lungs- clear to auscultation Heart- regular rhythm Abdomen- normal bowel sounds, soft, + mild tenderness, No guarding Extremities- no pretibial edema, no calf tenderness Neuro- alert, oriented x 3; PERRL, EOMI; no facial palsy Laboratory Results: Last 24 Hours Test 03/22/18 16:33 03/22/18 20:28 03/22/18 20:29 03/22/18 20:45 Bedside Glucose 246 mg/dl 43 mg/dl 40 mg/dl 59 mg/dl Test 03/22/18 21:04 03/23/18 07:29 03/23/18 11:20 Bedside Glucose 76 mg/dl 246 mg/dl 70 mg/dl Assessment & Plan Patient is a 52 year old male with a PMH of chronic pancreatitis, anxiety, hep C , epilepsy, gerd, HLD and DM that was transferred from [facility] due to abdominal pain after he was found to have a pancreatic mass on CT scan. Recurrent acute pancreatitis w/ pancreatic mass No elevation in lipase on admission wnl Has been requested Dilaudid q 3 hr for the pain We will give her Toradol with small dose of Dilaudid if needed MRCP done showed cystic pancreatic lesions, no significant ductal dilatation MRI abdomen done unchanged abnormal appearance involving the pancreatic head, which is ill-defined and demonstrates foci of cystic change and large calcifications. Will decrease IVF to 80 ml/hr On clear liquid diet GI on board recommended symptomatic management with IVF and pain control GI recommended follow up with surgical oncology with Dr. Quincy Walker to discuss elective resection to ensure no others pathologic changes and as well as to help with the pain Will consider to add oral narcotic and decrease the Dilaudid frequency Pain management consulted recommended to titrate the dilaudid off Nucynta increase to 75mg q4 hr Consider celiac plexus block in the future after seeing oncology surgery for possible elective surgery Dilaudid D/C Clinically improved MRI abdomen report 1. Significantly motion compromised examination. 2. There is mild inflammatory stranding around the pancreatic head, with associated wall thickening in the adjacent duodenum. Top differential considerations are pancreatitis versus duodenitis. Clinical correlation will be required. 3. There is unchanged abnormal appearance involving the pancreatic head, which is ill-defined and demonstrates foci of cystic change and large calcifications. This is indeterminant and may represent sidebranch IPMN's in conjunction with the sequelae of chronic pancreatitis. Underlying mass lesion involving the pancreas and/or duodenum would be impossible to exclude. These findings have been present on prior examinations dating back to 2012. Gastroenterology consultation and follow-up with ERCP is recommended for further assessment. 4. The gallbladder is surgically absent. Mild intra and extrahepatic biliary ductal dilatation is noted. There is no evidence of choledocholithiasis. There is also chronic dilatation of the pancreatic duct. 5. Small pleural effusions. Mild Protein Calorie Malnutrition Nutrition assessment T2DM Hba1c 7.2 Resume metformin on discharge Pharmacy on board for glycemic management HLD Continue holding statin GERD Will change PPI to PO Epilepsy Continue gabapentin Continue Lamictal Anxiety On Xanax prn for anxiety stable Chronic pain On oxycodone prn Will try to discharge on Nucynta Hx of Hep C DVT Lovenox 40mg subq CODE STATUS Full code Disposition Will discharge home today Current Inpatient Medications: Current Inpatient Medications Medications (Trade) Dose Ordered Sig/Omar Route Start Time Stop Time Status Last Admin Dose Admin Enoxaparin Sodium (Lovenox Inj) 40 mg Q24H SQ 03/16/18 09:00 04/15/18 08:59 Al Hydrox/Mg Hydrox/Simethicone (Maalox Max Susp) 15 ml Q4H PRN PO 03/16/18 03:15 04/15/18 03:14 Magnesium Hydroxide (Milk Of Magnesia Susp) 30 ml Q6H PRN PO 03/16/18 03:15 04/15/18 03:14 Polyethylene (Miralax Powder Packet) 17 gm DAILY PRN PO 03/16/18 03:15 04/15/18 03:14 03/23/18 07:50 17 GM Ondansetron HCl (Zofran Inj) 4 mg Q6H PRN IV 03/16/18 03:15 04/15/18 03:14 Glucose (Glucose 40% Gel) 15-30 GRAMS 15 GRAMS... UD PRN PO 03/16/18 04:00 04/15/18 03:59 Glucose (Glucose Chew Tab) 4-8 Tablets 4 Tabl... UD PRN PO 03/16/18 04:00 04/15/18 03:59 Dextrose (Dextrose 50% 50ML Syringe) 25-50ML 25ML FOR ... UD PRN IV 03/16/18 04:00 04/15/18 03:59 Glucagon (Glucagon Inj) 1 mg UD PRN IM 03/16/18 04:00 04/15/18 03:59 Carbohydrates (Carbohydrates For Hypoglycemia) 15-30 GRAMS 15 grams if BSG 54-69... UD PRN PO 03/16/18 04:00 04/15/18 03:59 03/22/18 20:38 15 GM Alprazolam (Xanax Tab) 1 mg TID PO 03/16/18 09:00 04/15/18 08:59 03/23/18 14:04 1 MG Lamotrigine (Lamictal Tab) 50 mg BID PO 03/16/18 09:00 04/15/18 08:59 03/23/18 07:45 50 MG Insulin Aspart (novoLOG ASPART) SLIDING SCALE G... ACHS [place] 03/17/18 11:00 04/16/18 10:59 Future hold 03/23/18 12:12 2 UNITS Miscellaneous Information (Consult Glycemic Management Pharmacy) 1 ea UD PRN N/A 03/20/18 08:15 04/19/18 08:14 Insulin Human NPH (novoLIN-N NPH) 8 units QDB SC 03/21/18 08:30 04/20/18 08:29 03/23/18 07:55 8 UNITS Docusate Sodium (coLACE CAP) 100 mg BID PO 03/21/18 09:00 04/20/18 08:59 03/23/18 07:44 100 MG Senna (Senokot Tab) 8.6 mg QAM PO 03/21/18 09:00 04/20/18 08:59 03/23/18 07:44 8.6 MG Pantoprazole Sodium (Protonix Tab) 40 mg BID PO 03/21/18 21:00 04/20/18 20:59 03/23/18 07:44 40 MG Tapentadol (Nucynta Tab) 75 mg Q4H PRN PO 03/22/18 08:45 04/21/18 08:44 03/23/18 12:09 75 MG Insulin Human NPH (novoLIN-N NPH) 8 units QDD SC 03/22/18 17:00 04/21/18 16:59 03/22/18 17:33 8 UNITS
[2018-03-23] MEDS ORDERED: ASPI81CH2 PO (14:34)
[2018-03-23] MEDS ORDERED: LPT40 PO (14:34)
[2018-03-23] MEDS ORDERED: INSHI7030 SC (14:34)
[2018-03-23] MEDS ORDERED: METF1000 PO (14:34)
[2018-03-23] MEDS ORDERED: NCY50 PO (14:36)
--- NOTE | 2018-03-23 15:03 | Discharge Instructions ---
Discharge Instructions Date of Service Mar 23, 2018. Admission Reason for Admission: Recurrent Pancreatitis,Mass Discharge Discharge Diagnosis / Problem: Recurrent acute pancreatitis w/ pancreatic mass , Diabetes type 2 Discharge Goals Goal(s): Decrease discomfort, Improve function, Improve disease control Activity Recommendations Activity Limitations: resume your previous activity (as tolerated) . Instructions / Follow-Up Instructions / Follow-Up Follow up with your primary care provider Dr. Pike on 03/28 @ 10:45 AM Follow up with your oncology surgeon Dr. Quincy Walker to discuss possible elective resection (please call to schedule for the appointment) Monitor your blood sugar and bring your blood sugar log at your next appointment with your physician Do not drive or operate any machine after taking the Nucynta due to lethargy and drowsiness Fall precaution Current Hospital Diet Patient's current hospital diet: Diabetes Type 2 Diet, Regular Diet Discharge Diet Recommended Diet: Diabetes Type 2 Diet Pending Studies Studies pending at discharge: no Laboratory Results Hemoglobin A1c Test 03/20/18 08:28 Range/Units Estimated Average Glucose 160 mg/dl Hemoglobin A1c 7.2 H 4.5-5.6 % Medical Emergencies . Who to Call and When: Medical Emergencies: If at any time you feel your situation is an emergency, please call 911 immediately. . Non-Emergent Contact Non-Emergency issues call your: Primary Care Provider Call Non-Emergent contact if: your pain is worsening, you have any medication questions . . "Provider Documentation" section prepared by Rosalia Gonzalez. . [place] Drug Monitoring Program Search Results: patient reviewed within database
[2018-03-23 15:11] VITALS: BP_SYST 83; BP_SYST 86; BP_DIAS 38; BP_DIAS 55; PULSE 57; TEMP 36.6; O2SAT 96
[2018-03-23] MEDS ORDERED: RXC5 PO (16:40)
--- NOTE | 2018-03-24 08:57 | Discharge Summary ---
Discharge Summary Date of Service Mar 24, 2018. Discharge Summary Admission Date: Mar 16, 2018 at 02:13 Discharge Date: Mar 23, 2018 Discharge Disposition: Home Principal Diagnosis: Recurrent acute pancreatitis w/ pancreatic mass Secondary Diagnoses/Problems: Mild Protein Calorie Malnutrition Epilepsy Anxiety Hep C Chronic pain DM type 2 GERD Procedures: MRI OF THE ABDOMEN COMBO CLINICAL HISTORY: Pancreatitis. Nausea and vomiting. COMPARISON STUDY: Abdominal CT dated 05/01/2016. Abdominal MRI dated 11/22/2012. MRCP dated 03/16/2018. TECHNIQUE: MRI of the abdomen is performed transverse T1 and T2-weighted sequences in the axial and coronal planes. Contrast enhanced sequences were acquired following the IV administration of 6.5 cc of Gadavist. Subtraction imaging was performed. MRCP images were acquired. 3-D reformats were created and assessed. The examination is significantly compromised by motion artifact. FINDINGS: Lower chest: There are small pleural effusions. The heart is normal in size and without pericardial effusion. Liver: The liver is normal in size, contour, and signal intensity. There is mild intrahepatic biliary ductal dilatation. The hepatic veins and portal veins are patent. A subcentimeter cyst is noted in the right lobe. A 1.4 cm enhancing lesion the left lobe likely represents a hemangioma and has been present dating back to 2012. Gallbladder and MRCP: The gallbladder is surgically absent. The common bile duct is somewhat patulous and measures up to 7 mm. No findings flexor clearly identified to indicate choledocholithiasis. Spleen: Normal in size and signal intensity. Pancreas: The pancreas is not well assessed. The pancreas appears mildly enlarged and is heterogeneous in signal intensity. The pancreatic head appears bulbous an ill-defined. Large calcifications are noted in the pancreatic head, and there is mild stranding around the pancreatic head and the adjacent duodenum. Mild wall thickening is noted in the duodenum. The pancreatic duct is dilated, measuring up to 6 mm. Cystic foci are present in the pancreatic head measure up to 16mm, and this was also seen on prior examinations. Adrenal glands: Unremarkable. Kidneys: The kidneys are normal in size and without hydronephrosis. The kidneys enhance and excrete symmetrically. There is a 1.8 cm T1 and T2 hyperintense lesions seen in the lower pole of left kidney. This does not demonstrate postcontrast enhancement and likely represents a complex/hemorrhagic cyst. This is been seen on prior examinations. There is trace nonspecific perinephric fluid. Abdominal aorta: Normal in course and caliber. Bowel: Moderate fecal retention is noted in the colon. There is no evidence of bowel obstruction. Peritoneum: There is no abdominal ascites. Lymphadenopathy: None. Skeletal structures: Visualized skeletal structures times are normal marrow signal intensity. IMPRESSION: 1. Significantly motion compromised examination. 2. There is mild inflammatory stranding around the pancreatic head, with associated wall thickening in the adjacent duodenum. Top differential considerations are pancreatitis versus duodenitis. Clinical correlation will be required. 3. There is unchanged abnormal appearance involving the pancreatic head, which is ill-defined and demonstrates foci of cystic change and large calcifications. This is indeterminant and may represent sidebranch IPMN's in conjunction with the sequelae of chronic pancreatitis. Underlying mass lesion involving the pancreas and/or duodenum would be impossible to exclude. These findings have been present on prior examinations dating back to 2012. Gastroenterology consultation and follow-up with ERCP is recommended for further assessment. 4. The gallbladder is surgically absent. Mild intra and extrahepatic biliary ductal dilatation is noted. There is no evidence of choledocholithiasis. There is also chronic dilatation of the pancreatic duct. 5. Small pleural effusions. 6. Additional findings as above. Electronically signed by: Navid Da Silva M.D. 03/16/2018 8:59 PM Dictated Date/Time: 03/16/2018 8:40 PM MRCP CLINICAL HISTORY: 52 years-old Male presenting with Pancreatic mass. TECHNIQUE: Multisequence, multiplanar MR imaging of the abdomen was performed without the use of intravenous contrast. An MRCP protocol was used. 3-D volumetric and/or maximum intensity projection (MIP) images were subsequently reconstructed for review. IV contrast: None. COMPARISON: CT from 05/01/2016 and MRI from 11/22/2012. FINDINGS: Localizer images: Unremarkable. Lung bases: Lungs and pleural spaces clear. Normal heart size. No pericardial or pleural effusion. Liver: Normal morphology. Well-defined T2 hyperintense lesion in the right hepatic lobe likely hepatic cyst or hamartoma. Patent hepatic vasculature. Biliary: Mild biliary ductal prominence likely a reservoir effect in the post cholecystectomy state. The cystic duct remnant is nondilated. Gallbladder surgically absent. Pancreas: Significant interval decrease caliber of the pancreatic duct in comparison to 2013. Nonetheless, the pancreatic duct is mildly prominent throughout. Focal lobular cystic region in the uncinate measuring 1.2 cm, which appears contiguous with the pancreatic duct. This was previously region of dilated side branch ducts. The pancreatic head demonstrates multiple foci of T2 hyperintensity (series 8 image 86). This region of the pancreatic head appears bulbous, especially at the level of the major papilla (series 6 image 11). This appearance is similar to what was noted on prior CT in 2016. Spleen: Normal. Adrenal glands: Normal. Kidneys and ureters: Small cyst noted in the right kidney. No hydronephrosis. Bowel: Wall thickening of the pylorus and duodenal bulb. No bowel obstruction. Peritoneal cavity: No free fluid. Lymph nodes: No enlarged lymph nodes in the abdomen. Vasculature: Aorta and IVC patent and normal in caliber. Abdominal wall: Normal. Musculoskeletal: Stable superior endplate compression deformity of L2. IMPRESSION: 1. Pancreatic ductal prominence overall decreased since 2013. 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 This appearance has not significantly changed over an extended period of time, however, the current study is noncontrast and suboptimal for the evaluation of the pancreas. Dedicated contrast-enhanced pancreas MRI with MRCP sequences recommended on subsequent yearly surveillance examinations. 2. Wall thickening of the pylorus and duodenal bulb. This is nonspecific. Correlate with lipase to exclude the presence of pancreatitis as a potential cause of this. Differential considerations include duodenitis or ulcer. 3. Postsurgical changes of cholecystectomy. Consultations: Gastro Pain management Medication Reconciliation New Medications: Oxycodone HCl (Oxycodone HCl) 5 Mg Tab 1 TAB PO Q8 PRN for Pain, #10 Continued Medications: Albuterol (Ventolin Hfa) 60 Puffs/5400 Mcg Aers 2 PUFFS INH Q6H PRN for Breathing, #1 INHA Alprazolam (Xanax) 1 Mg Tab 1 MG PO TID Aspirin (Aspirin) 81 Mg Chw 1 TAB PO DAILY for 30 Days, #30 TAB Atorvastatin (Lipitor) 40 Mg Tab 40 MG PO DAILY, TAB Insulin Human Isophan/Regular (Humulin 70/30) Inj 8 UNIT SC BID, VIAL before breakfast and before supper Lamotrigine (Lamictal) 25 Mg Tab 50 MG PO BID, TAB Metformin Hcl (Glucophage) 1,000 Mg Tab 1 TAB PO BID for 30 Days, #60 TAB 5 Refills Pantoprazole (Protonix) 40 Mg Tab 40 MG PO DAILY Admission Information HPI (per Admitting provider): Patient is a 52 year old male with a PMH of chronic pancreatitis, anxiety, hep C , epilepsy, gerd, HLD and DM that was transferred from [facility] due to abdominal pain and possible acute pancreatitis. The patient went to [facility] yesterday evening due to the fact that he was having uncontrollable abdominal pain. It is located throughout his abdomen. The pain is a sharp pain and movement makes it worse. It started one week ago but has been getting progressively worse since then. He rates the pain as a 10/10 in severity. Associated symptoms include vomiting x3 episode (no bloody), he notes he has had a decreased appetite and has felt nauseated. He has had a 24 pound unintentional weight loss over the past 2 months. He notes he was having diarrhea for a few days which has now stopped. He denies any fevers, chills, blood in his stool, rashes, joint pain, chest pain, or shortness of breath. He has a chronic cough as he smokes 1 pack of cigarettes daily. He notes he has had pancreatitis 15-20 times. His last alcoholic drink was 5 years ago. At [facility] his vital signs were stable. His labs showed a normal CBC, normal CMP, glucose of 192, AST of 38, ALT of 108, total bilirubin of 0.5 and a normal amylase and lipase. He had a CT scan of his abdomen and pelvis which showed a 22mm solid mass at the head of the pancreas, there was also the presence of calcifications and mild biliary/pancreatic duct dilatation. At [facility] the patient was given 50mcg of IV fentanyl, 3.5mg of dilaudid, 25mg of demerol, 30mg of toradol, 4mg of zofran and 125mls/hr of LR. Physical Exam (per Admitting): General Appearance: WD/WN, + moderate distress, + pertinent finding ( patient is sitting moaning in pain clutching pillow) Head: normocephalic, atraumatic ENT: + pertinent finding (poor dentition) Neck: supple, no adenopathy, no JVD, no carotid bruits, trachea midline Respiratory/Chest: lungs clear, no respiratory distress, no accessory muscle use Cardiovascular: regular rate, rhythm, no murmur, normal peripheral pulses Abdomen/GI: normal bowel sounds, soft, + tenderness (mild tenderness throughout) Back: normal inspection, no muscle spasm Extremities/Musculoskelatal: normal inspection, no calf tenderness, no pedal edema, non-tender Neurologic/Psych: no motor/sensory deficits, alert, normal mood/affect, oriented x 3 Skin: normal color, no rash, + pertinent finding (patient appears dry and dehydrated) Hospital Course Patient is a 52 year old male with a PMH of chronic pancreatitis, anxiety, hep C , epilepsy, gerd, HLD and DM that was transferred from [facility] due to abdominal pain after he was found to have a pancreatic mass on CT scan. Recurrent acute pancreatitis w/ pancreatic mass No elevation in lipase on admission wnl Has been requested Dilaudid q 3 hr for the pain We will give her Toradol with small dose of Dilaudid if needed MRCP done showed cystic pancreatic lesions, no significant ductal dilatation MRI abdomen done unchanged abnormal appearance involving the pancreatic head, which is ill-defined and demonstrates foci of cystic change and large calcifications. Will decrease IVF to 80 ml/hr On clear liquid diet GI on board recommended symptomatic management with IVF and pain control GI recommended follow up with surgical oncology with Dr. Quincy Walker to discuss elective resection to ensure no others pathologic changes and as well as to help with the pain Will consider to add oral narcotic and decrease the Dilaudid frequency Pain management consulted recommended to titrate the dilaudid off Nucynta increase to 75mg q4 hr Consider celiac plexus block in the future after seeing oncology surgery for possible elective surgery Dilaudid D/C Clinically improved MRI abdomen report 1. Significantly motion compromised examination. 2. There is mild inflammatory stranding around the pancreatic head, with associated wall thickening in the adjacent duodenum. Top differential considerations are pancreatitis versus duodenitis. Clinical correlation will be required. 3. There is unchanged abnormal appearance involving the pancreatic head, which is ill-defined and demonstrates foci of cystic change and large calcifications. This is indeterminant and may represent sidebranch IPMN's in conjunction with the sequelae of chronic pancreatitis. Underlying mass lesion involving the pancreas and/or duodenum would be impossible to exclude. These findings have been present on prior examinations dating back to 2012. Gastroenterology consultation and follow-up with ERCP is recommended for further assessment. 4. The gallbladder is surgically absent. Mild intra and extrahepatic biliary ductal dilatation is noted. There is no evidence of choledocholithiasis. There is also chronic dilatation of the pancreatic duct. 5. Small pleural effusions. Mild Protein Calorie Malnutrition Nutrition assessment T2DM Hba1c 7.2 Resume metformin on discharge Pharmacy on board for glycemic management HLD Continue holding statin GERD Will change PPI to PO Epilepsy Continue gabapentin Continue Lamictal Anxiety On Xanax prn for anxiety stable Chronic pain On oxycodone prn Will try to discharge on Nucynta Hx of Hep C DVT Lovenox 40mg subq CODE STATUS Full code Disposition Will discharge home today Total time spent on discharge = 35 minutes This includes examination of the patient, discharge planning, medication reconciliation, and communication with other providers. Discharge Instructions Discharge Instructions Date of Service Mar 23, 2018. Admission Reason for Admission: Recurrent Pancreatitis,Mass Discharge Discharge Diagnosis / Problem: Recurrent acute pancreatitis w/ pancreatic mass , Diabetes type 2 Discharge Goals Goal(s): Decrease discomfort, Improve function, Improve disease control Activity Recommendations Activity Limitations: resume your previous activity (as tolerated) . Instructions / Follow-Up Instructions / Follow-Up Follow up with your primary care provider Dr. Pike on 03/28 @ 10:45 AM Follow up with your oncology surgeon Dr. Quincy Walker to discuss possible elective resection (please call to schedule for the appointment) Monitor your blood sugar and bring your blood sugar log at your next appointment with your physician Do not drive or operate any machine after taking the Nucynta due to lethargy and drowsiness Fall precaution Current Hospital Diet Patient's current hospital diet: Diabetes Type 2 Diet, Regular Diet Discharge Diet Recommended Diet: Diabetes Type 2 Diet Pending Studies Studies pending at discharge: no Laboratory Results Hemoglobin A1c Test 03/20/18 08:28 Range/Units Estimated Average Glucose 160 mg/dl Hemoglobin A1c 7.2 H 4.5-5.6 % Medical Emergencies . Who to Call and When: Medical Emergencies: If at any time you feel your situation is an emergency, please call 911 immediately. . Non-Emergent Contact Non-Emergency issues call your: Primary Care Provider Call Non-Emergent contact if: your pain is worsening, you have any medication questions . . "Provider Documentation" section prepared by Rosalia Gonzalez. . [place] Drug Monitoring Program Search Results: patient reviewed within database Additional Copies To Kaya Pike M.D.
== END 2018-03-23 18:15 | disposition home or self-care (01) | DRG 439 ==
LOC: C.MED 02:13
PROVIDERS: ADMIT Hospitalist; ATTEND Internal Medicine
DX: K85.20 Alcohol induced acute pancreatitis without necrosis or infection (principal); E44.1 Mild protein-calorie malnutrition; K86.0 Alcohol-induced chronic pancreatitis; F10.21 Alcohol dependence, in remission; K21.9 Gastro-esophageal reflux disease without esophagitis; B19.20 Unspecified viral hepatitis C without hepatic coma; F17.200 Nicotine dependence, unspecified, uncomplicated; E11.9 Type 2 diabetes mellitus without complications; Z79.84 Long term (current) use of oral hypoglycemic drugs; G40.909 Epilepsy, unspecified, not intractable, without status epilepticus; Z82.49 Family history of ischemic heart disease and other diseases of the circulatory system; F41.9 Anxiety disorder, unspecified

== ENCOUNTER 2019-12-26 18:14 | Inpatient (IN) ==
--- NOTE | 2019-12-26 18:18 | Emergency Department Note ---
Impression & Plan Small bowel obstruction, Gastritis and duodenitis, Nausea & vomiting, Leukocytosis, Ketosis ED Provider Note NAME: ROME ACOSTA AGE: 54 SEX: M ARRIVES VIA: Ambulance INFORMANT: Patient, ED PROVIDER(S): Pravin Harper MD CHIEF COMPLAINT: Abdominal pain, nausea, vomiting. PLAN: Disposition: Admit MEDICAL DECISION MAKING: The patient is a pleasant 54-year-old gentleman with a past medical history of chronic pancreatitis, anxiety, hepatitis C, epilepsy, GERD, hyperlipidemia, diabetes presents emergency department for acute onset abdominal pain with nausea and vomiting today. Patient reports feeling feverish but denies objective fevers. Denies any urinary symptoms. He denies any cough or congestion. He denies any known contacts with individuals diagnosed with COVID- 19. He reports he has not drank alcohol for over a year. On arrival patient is uncomfortable, afebrile stable vital signs. On exam the patient appears clini hernan dry and poorly nourished. He has moderate upper abdominal pain without guarding or rebound. EKG without overt acute ischemia with U wave and less likely second-degree Mobitz type II heart block. Chest x-ray negative for acute process. WBC 18.2K,, nonspecific but likely representing a component of dehydration, acute phase/possible infection. H/H and platelets within normal limits. VBG unremarkable. Initial chemistry demonstrates elevated anion gap however bicarb within normal range. Glucose initially 325. With beta hydroxy butyrate 21. Given no metabolic acidosis at this time less likely to represent DKA. LFTs approximate to prior values though with alk phos elevated 831. Tr oponin negative/undetectable. Lactate initially 2.[address] of the abdomen pelvis was performed and demonstrates evidence of gastritis/esophagitis with evidence of obstruction that is possibly related to duodenal mass or stricture. Upon reevaluation patient was feeling improved after IV fluid hydration, Compazine, Benadryl. I did review the findings with him and the plan for admission and he was agreeable. Given the patient was feeling improved we agreed to defer NG tube however subsequently he did experience a flare of pain and so an NG tube was attempted but unsuccessful as the patient reports he has a history of nasal trauma. However the patient subsequently felt improved after IV morphine and so again deferred. Given suspicion for obstruction patient was given an empiric dose of ceftriaxone for now. Case was discussed with Dr. Jacob, [facility] hospitalist, who will evaluate the patient for admission. Triage Nursing notes reviewed and agree them. Prior medical records reviewed Vital Signs: reviewed and remarkable for no significant abnormalities Differential diagnosis: Appendicitis, testicular torsion, infections, diverticulitis, UTI, obstruction, mesenteric ischemia, aortic pathology, inflammatory bowel disease, renal colic, PUD, pancreatitis, biliary pathology, hernia, volvulus, constipation, as well as other pathologies. ER treatment provided: See below. Diagnostics interpreted by me: ECG: Sinus bradycardia, U wave and less likely second-degree Mobitz type II heart block, 57 bpm, normal axis, no overt ST elevation or depression, QTC 428, QRS 86. Cardiac Monitoring: An order for continuous cardiac monitoring was placed and demonstrated sinus bradycardia, 57 bpm, no ectopy. Laboratory studies: See below Imaging studies: SINGLE VIEW CHEST CLINICAL HISTORY: Atypical chest pain. FINDINGS: An AP, portable, upright chest radiograph is compared to study dated 11/29/2018. The cardiomediastinal silhouette is unremarkable. The lungs and pleural spaces are clear. No pneumothorax is seen. There is chronic posttraum atic deformity of the right clavicle. IMPRESSION: No active disease in the chest. -- CT SCAN OF THE ABDOMEN AND PELVIS WITH IV CONTRAST CLINICAL HISTORY: Generalized abdominal pain. Nausea and vomiting. COMPARISON STUDY: Abdominal CT dated 05/19/2016. Abdominal MRI dated 03/16/2018. TECHNIQUE: Following the IV administration of 94 cc of Optiray 320, CT scan of the abdomen and pelvis is performed from the lung bases to the proximal femora. Images are reviewed in the axial, sagittal, and coronal planes. IV contrast was administered without complication. A dose lowering technique was utilized adhering to the principles of ALARA. CT DOSE: 268.67 mGy.cm FINDINGS: Lung bases: The heart is normal in size and without pericardial effusion. The lung bases are clear. Liver: The contrast-enhanced liver is normal in size, contour, and attenuation. There is mild intrahepatic biliary ductal dilatation. The hepatic veins and portal veins are patent. Gallbladder: Surgically absent noting clips in the gallbladder fossa. Spleen: Normal in size and attenuation. Pancreas: The pancreas is atrophic. The pancreatic head appears heterogeneous. There are coarse calcifications in the pancreatic head and scattered throughout the pancreatic parenchyma suggesting chronic pancreatitis. Small cystic foci are again suggested in the pancreatic head. Prominence of the pancreatic duct is similar to previous unlikely to parenchymal atrophy. Adrenal glands: Unremarkable. Kidneys: The contrast enhanced kidneys are normal in size and without hydronephrosis. The kidneys enhance symmetrically. Small complex cysts are unchanged from previous. Abdominal vasculature: The abdominal aorta is normal in course and caliber noting mild to moderate atherosclerotic calcification. Stomach and bowel: There is a small hiatal hernia. The stomach is distended and fluid-filled. The gastric mucosa appears hyperemic, and there is mild mucosal edema which greatest involving the distal esophagus and proximal duodenum. There is marked narrowing of the proximal duodenum at the level of the pancreatic head. This is best seen on image #[id number]., This likely causes obstruction. There is moderate colonic fecal retention. No distal small bowel loops and colon are normal in caliber. No pneumatosis intestinalis or portal venous gas is seen. The appendix is not identified and reported surgically absent. Peritoneum: There is no intraperitoneal free air or abdominal ascites. Lymphadenopathy: None. Pelvic viscera: The prostate gland is mildly enlarged and heterogeneous. The bladder is distended but grossly unremarkable. Skeletal structures: No lytic or blastic lesions are seen. IMPRESSION: 1. The stomach is markedly distended and fluid-filled to the level of the duodenum at the pancreatic head. This likely represents obstruction. 2. The gastric mucosa is hyperemic, with mucosal edema involving predominantly the distal esophagus and proximal duodenum. Correlate clinically for evidence of superimposed gastroesophagitis/duodenitis. 3. There is heterogeneity of the pancreatic head with evidence of chronic pancreatitis. 4. As noted above the level of duodenal obstruction is at the level of the pancreatic head. This could be potentially be related to stricture or possibly obstructing mass lesion. GI consultation is advised. Consider endoscopy for further assessment. 5. No intraperitoneal free air is seen. There is no pneumatosis intestinalis or portal venous gas. Consultation(s): Case was discussed with Dr. Jacob, [facility]ist, who will evaluate the patient for admission. HPI: The patient is a pleasant 54-year-old gentleman with a past medical history of chronic pancreatitis, anxiety, hepatitis C, epilepsy, GERD, hyperlipidemia, diabetes presents emergency department for acute onset abdominal pain with nausea and vomiting today. Patient reports feeling feverish but denies objective fevers. Denies any urinary symptoms. He denies any cough or congestion. He denies any known contacts with individuals diagnosed with COVID- 19. He reports he has not drank alcohol for over a year. ROS: See above HPI for pertinent positives & negatives. A total of 10 systems reviewed and were otherwise negative. PAST MEDICAL HISTORY:See Below PAST SURGICAL HISTORY:See Below FAMILY HISTORY:See Below SOCIAL HISTORY:See Below HOME MEDICATIONS:See Below ALLERGIES:See Below VITALS:See Below PHYSICAL EXAMINATION: GENERAL: Awake, alert, ill and uncomfortable-appearing, poorly nourished, in no distress HENT: Normocephalic, atraumatic. Oropharynx with dry mucous membranes and otherwise unremarkable. EYES: Normal conjunctiva. Sclera non-icteric. NECK: Supple. No nuchal rigidity. FROM. No JVD. RESPIRATORY: Clear to auscultation. CARDIAC: Regular rate, normal rhythm. Extremities warm and well perfused. Pulses equal. ABDOMEN: Soft, non-distended. Moderate upper abdominal tenderness. No rebound or guarding. No masses. RECTAL: Deferred. MUSCULOSKELETAL: Chest examination reveals no tenderness. The back is symmetrical on inspection without obvious abnormality. There is no CVA tenderness to palpation. No joint edema. LOWER EXTREMITIES: Calves are equal size bilaterally and non-tender. No edema. No discoloration. NEURO: Normal sensorium. No sensory or motor deficits noted. SKIN: No rash or jaundice noted. ED COURSE: Critical Care: I have personally spent greater than 55 minutes of critical care time in the direct management of this patient. This includes bedside care, interpretation of diagnostic studies, and testing, discussion with consultants, patient, and family members, and other required patient management activities. This 55 minutes is in excess of all separately billable procedures. Pravin Harper MD Past Med/Surg History Medical History Alcohol abuse (Acute) Chronic pancreatitis (Chronic) Diabetes (Chronic) Hepatitis C (Acute) Social History Preferred Language: Tanzanian Communication Ability: Effective Career And Guidance Counselor Required: No Beliefs That Will Affect Care: None Current Living Situation: Significant Other Feels Safe at Home: Yes Smoking Status: Current every day smoker Tobacco Type: cigarettes ; Cigarettes Per Day: 40 ; Do You Dip or Chew Tobacco: No ; Hx Alcohol Use: No Allergies Allergies Allergy/AdvReac Type Severity Reaction Status Date / Time phenytoin AdvReac Intermediate "IT MAKES Verified 12/26/19 21:47 ME CRAZY" Home Meds Home Medications Medication Instructions Recorded Confirmed acetaminophen [Tylenol Extra 1,500 mg PO DAILY PRN 11/29/18 12/26/19 Strength] albuterol sulfate [ProAir HFA] 2 puff INHALATION QID PRN 11/29/18 12/26/19 aspirin [Aspir-81] 81 mg PO DAILY 11/29/18 12/26/19 atorvastatin [Lipitor] 40 mg PO DAILY 11/29/18 12/26/19 gabapentin [Neurontin] 600 mg PO TID 11/29/18 12/26/19 insulin NPH and regular human 14 unit SUBCUT BID 11/29/18 12/26/19 [Humulin 70/30 U-100 Insulin] lidocaine 1 applic TOPICAL BID PRN 11/29/18 12/26/19 metformin [Glucophage XR] 500 mg PO BID 11/29/18 12/26/19 pantoprazole 40 mg PO BID 11/29/18 11/29/18 buprenorphine-naloxone [Suboxone] 2 film SUBLINGUAL BID 12/26/19 12/26/19 lamotrigine [Lamictal] 50 mg PO DAILY 12/26/19 12/26/19 Results & Data (ED) Vital Signs Vital Signs - 24 hr 12/26/19 18:25 12/26/19 18:30 12/26/19 18:31 Temperature Temperature Source Pulse Rate 64 75 73 Pulse Rate from SpO2 Sensor 74 73 Respiratory Rate 12 21 17 Respiratory Effort / Characteristics Respiratory Depth Respiratory Pattern Blood Pressure 145/95 H Blood Pressure Mean 110 Pulse Oximetry 94 93 Oxygen Delivery Method Sepsis Recent Fever Within 48 Hours Sepsis New/Unexplained Change in Mental Status Sepsis Action Taken by Nursing 12/26/19 18:41 12/26/19 19:00 12/26/19 19:01 Temperature 36.8 C Temperature Source Oral Pulse Rate 74 83 69 Pulse Rate from SpO2 Sensor 81 69 Respiratory Rate 18 18 18 Respiratory Effort / Characteristics Non-Labored Spontaneous Respiratory Depth Normal Respiratory Pattern Regular Blood Pressure 145/95 H 126/75 Blood Pressure Mean 111 97 Pulse Oximetry 93 89 L 91 Oxygen Delivery Method Room Air Sepsis Recent Fever Within 48 Hours No Sepsis New/Unexplained Change in Mental Status No Sepsis Action Taken by Nursing No Action Required 12/26/19 19:30 12/26/19 19:31 12/26/19 20:00 Temperature Temperature Source Pulse Rate 87 74 77 Pulse Rate from SpO2 Sensor 90 75 74 Respiratory Rate 13 19 14 Respiratory Effort / Characteristics Respiratory Depth Respiratory Pattern Blood Pressure 123/71 142/83 H Blood Pressure Mean 76 92 Pulse Oximetry 91 95 Oxygen Delivery Method Sepsis Recent Fever Within 48 Hours Sepsis New/Unexplained Change in Mental Status Sepsis Action Taken by Nursing 12/26/19 20:30 12/26/19 21:00 12/26/19 21:01 Temperature Temperature Source Pulse Rate 83 75 76 Pulse Rate from SpO2 Sensor 82 Respiratory Rate 17 18 17 Respiratory Effort / Characteristics Respiratory Depth Respiratory Pattern Blood Pressure 155/92 H 121/82 Blood Pressure Mean 105 100 Pulse Oximetry 94 Oxygen Delivery Method Sepsis Recent Fever Within 48 Hours Sepsis New/Unexplained Change in Mental Status Sepsis Action Taken by Nursing 12/26/19 21:30 12/26/19 22:00 12/26/19 22:30 Temperature Temperature Source Pulse Rate 82 83 86 Pulse Rate from SpO2 Sensor 82 Respiratory Rate 22 15 13 Respiratory Effort / Characteristics Respiratory Depth Respiratory Pattern Blood Pressure 146/86 H Blood Pressure Mean 128 Pulse Oximetry 93 Oxygen Delivery Method Sepsis Recent Fever Within 48 Hours Sepsis New/Unexplained Change in Mental Status Sepsis Action Taken by Nursing 12/26/19 23:00 Temperature Temperature Source Pulse Rate 65 Pulse Rate from SpO2 Sensor 69 Respiratory Rate 12 Respiratory Effort / Characteristics Respiratory Depth Respiratory Pattern Blood Pressure 118/73 Blood Pressure Mean 88 Pulse Oximetry 92 Oxygen Delivery Method Sepsis Recent Fever Within 48 Hours Sepsis New/Unexplained Change in Mental Status Sepsis Action Taken by Nursing Laboratory Data Attestation: I reviewed the patient's lab results. Result diagrams: 12/27/19 03:53 12/27/19 03:53 Lab Results 12/26/19 12/26/19 12/26/19 Range/Units 18:52 18:52 18:52 WBC 18.23 H (4.8-10.8) K/uL RBC 5.34 (4.7-6.1) M/uL Hgb 17.8 (14.0-18.0) g/dL POC Hgb (14.0-18.0) g/dl Hct 51.9 (42-52) % POC Hct (42-52) % MCV 97.2 (80-100) fL MCH 33.3 (25-34) pg MCHC 34.3 (32-36) g/dL RDW Std Deviation 45.9 (36.4-46.3) fL RDW Coeff of Elda 12.8 (11.5-14.5) % Plt Count 206 (130-400) K/uL MPV 12.4 H (7.4-10.4) fL Immature Gran % (Auto) 0.3 % Neut % (Auto) 89.0 % Lymph % (Auto) 7.2 % Robeson % (Auto) 3.4 % Eos % (Auto) 0.0 % Baso % (Auto) 0.1 % Immature Gran # (Auto) 0.06 H (0.00-0.02) K/uL Neut # (Auto) 16.23 H (1.4-6.5) K/uL Lymph # (Auto) 1.31 (1.2-3.4) K/uL Robeson # (Auto) 0.62 H (0.11-0.59) K/uL Eos # (Auto) 0.00 (0-0.5) K/uL Baso # (Auto) 0.01 (0-0.2) K/uL PT 10.3 (9.0-12.0) Seconds INR 1.0 (0.9-1.1) APTT 25.7 (21.0-31.0) Seconds PTT Ratio 0.9 VBG pH (7.36-7.41) VBG pCO2 (38-50) mmHg VBG pO2 mmHg VBG HCO3 mmol/L VBG O2 Saturation % VBG Base Excess mEq/L Barometric Pressure mm/Hg POC Sodium (135-144) mmol/L Sodium 129 L (136-145) mmol/L POC Potassium (3.3-5.0) mmol/L Potassium 3.8 (3.5-5.1) mmol/L POC Chloride (101-112) mmol/L Chloride 86 L (98-107) mmol/L Carbon Dioxide 30 (21-32) mmol/L POC Total CO2 (24-31) mmol/L Anion Gap 17.0 H (3-11) POC Anion Gap (16-25) mmol/L POC BUN (7-18) mg/dl BUN 2 L (7-18) mg/dl Creatinine 0.98 (0.6-1.4) mg/dl POC Creatinine (0.6-1.3) mg/dl Est Cr Clr Drug Dosing 67.1 ml/min Est GFR ( Amer) 99.5 Est GFR (Non-Af Amer) 85.8 BUN/Creatinine Ratio 1.6 L (10-20) Glucose 325 H* (70-99) mg/dl POC Glucose (70-99) mg/dl POC Glucose (other) (70-99) mg/dl Osmolality (280-300) mOsm/kg Lactate (0.4-2.0) mmol/L Calcium 9.2 (8.5-10.1) mg/dl POC Ioniz Calcium Tahir (1.12-1.32) mmol/l Phosphorus 3.8 (2.5-4.9) mg/dl Magnesium 2.2 (1.8-2.4) mg/dl Total Bilirubin 0.5 (0.2-1) mg/dl Direct Bilirubin 0.2 (0-0.2) mg/dl AST 60 H (15-37) U/L ALT 209 H (12-78) U/L Alkaline Phosphatase 831 H (45-117) U/L Troponin I < 0.015 (0-0.045) ng/ml Total Protein 8.7 H (6.4-8.2) gm/dl Albumin 3.9 (3.4-5.0) gm/dl Globulin 4.8 H (2.5-4.0) gm/dl Albumin/Globulin Ratio 0.8 L (0.9-2) Lipase 25 L (73-393) U/L Beta-Hydroxybutyric Acd (0.2-2.81) mg/dl Urine Color Urine Appearance (Clear) Urine pH (4.5-7.5) Ur Specific [place] (1.000-1.030) Urine Protein (Negative) Urine Glucose (UA) (Negative) Urine Ketones (Negative) Urine Blood (Negative) Urine Nitrite (Negative) Urine Bilirubin (Negative) Urine Urobilinogen (Negative) Ur Leukocyte Esterase (Negative) Urine WBC (Auto) (0-5) /hpf Urine RBC (Auto) (0-4) /hpf U Hyaline Cast (Auto) (0-5) /lpf U Epithel Cells (Auto) (0-5) /lpf Urine Bacteria (Auto) (Negative) Urine Osmolality (500-800) mOsm/kg Ethyl Alcohol mg/dL (0-3) mg/dl 12/26/19 12/26/19 12/26/19 Range/Units 18:52 18:52 18:52 WBC (4.8-10.8) K/uL RBC (4.7-6.1) M/uL Hgb (14.0-18.0) g/dL POC Hgb (14.0-18.0) g/dl Hct (42-52) % POC Hct (42-52) % MCV (80-100) fL MCH (25-34) pg MCHC (32-36) g/dL RDW Std Deviation (36.4-46.3) fL RDW Coeff of Elda (11.5-14.5) % Plt Count (130-400) K/uL MPV (7.4-10.4) fL Immature Gran % (Auto) % Neut % (Auto) % Lymph % (Auto) % Robeson % (Auto) % Eos % (Auto) % Baso % (Auto) % Immature Gran # (Auto) (0.00-0.02) K/uL Neut # (Auto) (1.4-6.5) K/uL Lymph # (Auto) (1.2-3.4) K/uL Robeson # (Auto) (0.11-0.59) K/uL Eos # (Auto) (0-0.5) K/uL Baso # (Auto) (0-0.2) K/uL PT (9.0-12.0) Seconds INR (0.9-1.1) APTT (21.0-31.0) Seconds PTT Ratio VBG pH 7.37 (7.36-7.41) VBG pCO2 63 H (38-50) mmHg VBG pO2 21 mmHg VBG HCO3 35 mmol/L VBG O2 Saturation < 60.0 % VBG Base Excess 7.0 mEq/L Barometric Pressure 739.5 mm/Hg POC Sodium (135-144) mmol/L Sodium (136-145) mmol/L POC Potassium (3.3-5.0) mmol/L Potassium (3.5-5.1) mmol/L POC Chloride (101-112) mmol/L Chloride (98-107) mmol/L Carbon Dioxide (21-32) mmol/L POC Total CO2 (24-31) mmol/L Anion Gap (3-11) POC Anion Gap (16-25) mmol/L POC BUN (7-18) mg/dl BUN (7-18) mg/dl Creatinine (0.6-1.4) mg/dl POC Creatinine (0.6-1.3) mg/dl Est Cr Clr Drug Dosing ml/min Est GFR ( Amer) Est GFR (Non-Af Amer) BUN/Creatinine Ratio (10-20) Glucose (70-99) mg/dl POC Glucose (70-99) mg/dl POC Glucose (other) (70-99) mg/dl Osmolality (280-300) mOsm/kg Lactate (0.4-2.0) mmol/L Calcium (8.5-10.1) mg/dl POC Ioniz Calcium Tahir (1.12-1.32) mmol/l Phosphorus (2.5-4.9) mg/dl Magnesium (1.8-2.4) mg/dl Total Bilirubin (0.2-1) mg/dl Direct Bilirubin (0-0.2) mg/dl AST (15-37) U/L ALT (12-78) U/L Alkaline Phosphatase (45-117) U/L Troponin I (0-0.045) ng/ml Total Protein (6.4-8.2) gm/dl Albumin (3.4-5.0) gm/dl Globulin (2.5-4.0) gm/dl Albumin/Globulin Ratio (0.9-2) Lipase (73-393) U/L Beta-Hydroxybutyric Acd 21.81 H (0.2-2.81) mg/dl Urine Color Urine Appearance (Clear) Urine pH (4.5-7.5) Ur Specific [place] (1.000-1.030) Urine Protein (Negative) Urine Glucose (UA) (Negative) Urine Ketones (Negative) Urine Blood (Negative) Urine Nitrite (Negative) Urine Bilirubin (Negative) Urine Urobilinogen (Negative) Ur Leukocyte Esterase (Negative) Urine WBC (Auto) (0-5) /hpf Urine RBC (Auto) (0-4) /hpf U Hyaline Cast (Auto) (0-5) /lpf U Epithel Cells (Auto) (0-5) /lpf Urine Bacteria (Auto) (Negative) Urine Osmolality (500-800) mOsm/kg Ethyl Alcohol mg/dL < 3.0 (0-3) mg/dl 12/26/19 12/26/19 12/26/19 Range/Units 18:52 19:05 22:04 WBC (4.8-10.8) K/uL RBC (4.7-6.1) M/uL Hgb (14.0-18.0) g/dL POC Hgb 19.4 H (14.0-18.0) g/dl Hct (42-52) % POC Hct 57 H (42-52) % MCV (80-100) fL MCH (25-34) pg MCHC (32-36) g/dL RDW Std Deviation (36.4-46.3) fL RDW Coeff of Elda (11.5-14.5) % Plt Count (130-400) K/uL MPV (7.4-10.4) fL Immature Gran % (Auto) % Neut % (Auto) % Lymph % (Auto) % Robeson % (Auto) % Eos % (Auto) % Baso % (Auto) % Immature Gran # (Auto) (0.00-0.02) K/uL Neut # (Auto) (1.4-6.5) K/uL Lymph # (Auto) (1.2-3.4) K/uL Robeson # (Auto) (0.11-0.59) K/uL Eos # (Auto) (0-0.5) K/uL Baso # (Auto) (0-0.2) K/uL PT (9.0-12.0) Seconds INR (0.9-1.1) APTT (21.0-31.0) Seconds PTT Ratio VBG pH (7.36-7.41) VBG pCO2 (38-50) mmHg VBG pO2 mmHg VBG HCO3 mmol/L VBG O2 Saturation % VBG Base Excess mEq/L Barometric Pressure mm/Hg POC Sodium 128 L (135-144) mmol/L Sodium (136-145) mmol/L POC Potassium 3.7 (3.3-5.0) mmol/L Potassium (3.5-5.1) mmol/L POC Chloride 85 L (101-112) mmol/L Chloride (98-107) mmol/L Carbon Dioxide (21-32) mmol/L POC Total CO2 31 (24-31) mmol/L Anion Gap (3-11) POC Anion Gap 17.0 (16-25) mmol/L POC BUN 29 H (7-18) mg/dl BUN (7-18) mg/dl Creatinine (0.6-1.4) mg/dl POC Creatinine 0.7 (0.6-1.3) mg/dl Est Cr Clr Drug Dosing ml/min Est GFR ( Amer) Est GFR (Non-Af Amer) BUN/Creatinine Ratio (10-20) Glucose (70-99) mg/dl POC Glucose (70-99) mg/dl POC Glucose (other) 327 H (70-99) mg/dl Osmolality 299 (280-300) mOsm/kg Lactate (0.4-2.0) mmol/L Calcium (8.5-10.1) mg/dl POC Ioniz Calcium Tahir 0.97 L (1.12-1.32) mmol/l Phosphorus (2.5-4.9) mg/dl Magnesium (1.8-2.4) mg/dl Total Bilirubin (0.2-1) mg/dl Direct Bilirubin (0-0.2) mg/dl AST (15-37) U/L ALT (12-78) U/L Alkaline Phosphatase (45-117) U/L Troponin I (0-0.045) ng/ml Total Protein (6.4-8.2) gm/dl Albumin (3.4-5.0) gm/dl Globulin (2.5-4.0) gm/dl Albumin/Globulin Ratio (0.9-2) Lipase (73-393) U/L Beta-Hydroxybutyric Acd (0.2-2.81) mg/dl Urine Color Yellow Urine Appearance Clear (Clear) Urine pH 5.0 (4.5-7.5) Ur Specific [place] > 1.045 H (1.000-1.030) Urine Protein Negative (Negative) Urine Glucose (UA) 3+ H (Negative) Urine Ketones 3+ H (Negative) Urine Blood Trace H (Negative) Urine Nitrite Negative (Negative) Urine Bilirubin Negative (Negative) Urine Urobilinogen Negative (Negative) Ur Leukocyte Esterase Negative (Negative) Urine WBC (Auto) 1-5 (0-5) /hpf Urine RBC (Auto) 0-4 (0-4) /hpf U Hyaline Cast (Auto) 0 (0-5) /lpf U Epithel Cells (Auto) 5-10 H (0-5) /lpf Urine Bacteria (Auto) Negative (Negative) Urine Osmolality (500-800) mOsm/kg Ethyl Alcohol mg/dL (0-3) mg/dl 12/26/19 12/26/19 12/26/19 Range/Units 22:04 22:29 22:36 WBC (4.8-10.8) K/uL RBC (4.7-6.1) M/uL Hgb (14.0-18.0) g/dL POC Hgb (14.0-18.0) g/dl Hct (42-52) % POC Hct (42-52) % MCV (80-100) fL MCH (25-34) pg MCHC (32-36) g/dL RDW Std Deviation (36.4-46.3) fL RDW Coeff of Elda (11.5-14.5) % Plt Count (130-400) K/uL MPV (7.4-10.4) fL Immature Gran % (Auto) % Neut % (Auto) % Lymph % (Auto) % Robeson % (Auto) % Eos % (Auto) % Baso % (Auto) % Immature Gran # (Auto) (0.00-0.02) K/uL Neut # (Auto) (1.4-6.5) K/uL Lymph # (Auto) (1.2-3.4) K/uL Robeson # (Auto) (0.11-0.59) K/uL Eos # (Auto) (0-0.5) K/uL Baso # (Auto) (0-0.2) K/uL PT (9.0-12.0) Seconds INR (0.9-1.1) APTT (21.0-31.0) Seconds PTT Ratio VBG pH (7.36-7.41) VBG pCO2 (38-50) mmHg VBG pO2 mmHg VBG HCO3 mmol/L VBG O2 Saturation % VBG Base Excess mEq/L Barometric Pressure mm/Hg POC Sodium (135-144) mmol/L Sodium (136-145) mmol/L POC Potassium (3.3-5.0) mmol/L Potassium (3.5-5.1) mmol/L POC Chloride (101-112) mmol/L Chloride (98-107) mmol/L Carbon Dioxide (21-32) mmol/L POC Total CO2 (24-31) mmol/L Anion Gap (3-11) POC Anion Gap (16-25) mmol/L POC BUN (7-18) mg/dl BUN (7-18) mg/dl Creatinine (0.6-1.4) mg/dl POC Creatinine (0.6-1.3) mg/dl Est Cr Clr Drug Dosing ml/min Est GFR ( Amer) Est GFR (Non-Af Amer) BUN/Creatinine Ratio (10-20) Glucose (70-99) mg/dl POC Glucose 276 H (70-99) mg/dl POC Glucose (other) (70-99) mg/dl Osmolality (280-300) mOsm/kg Lactate 2.4 H* (0.4-2.0) mmol/L Calcium (8.5-10.1) mg/dl POC Ioniz Calcium Tahir (1.12-1.32) mmol/l Phosphorus (2.5-4.9) mg/dl Magnesium (1.8-2.4) mg/dl Total Bilirubin (0.2-1) mg/dl Direct Bilirubin (0-0.2) mg/dl AST (15-37) U/L ALT (12-78) U/L Alkaline Phosphatase (45-117) U/L Troponin I (0-0.045) ng/ml Total Protein (6.4-8.2) gm/dl Albumin (3.4-5.0) gm/dl Globulin (2.5-4.0) gm/dl Albumin/Globulin Ratio (0.9-2) Lipase (73-393) U/L Beta-Hydroxybutyric Acd (0.2-2.81) mg/dl Urine Color Urine Appearance (Clear) Urine pH (4.5-7.5) Ur Specific [place] (1.000-1.030) Urine Protein (Negative) Urine Glucose (UA) (Negative) Urine Ketones (Negative) Urine Blood (Negative) Urine Nitrite (Negative) Urine Bilirubin (Negative) Urine Urobilinogen (Negative) Ur Leukocyte Esterase (Negative) Urine WBC (Auto) (0-5) /hpf Urine RBC (Auto) (0-4) /hpf U Hyaline Cast (Auto) (0-5) /lpf U Epithel Cells (Auto) (0-5) /lpf Urine Bacteria (Auto) (Negative) Urine Osmolality 690 (500-800) mOsm/kg Ethyl Alcohol mg/dL (0-3) mg/dl 12/26/19 Range/Units 22:42 WBC (4.8-10.8) K/uL RBC (4.7-6.1) M/uL Hgb (14.0-18.0) g/dL POC Hgb 14.6 (14.0-18.0) g/dl Hct (42-52) % POC Hct 43 (42-52) % MCV (80-100) fL MCH (25-34) pg MCHC (32-36) g/dL RDW Std Deviation (36.4-46.3) fL RDW Coeff of Elda (11.5-14.5) % Plt Count (130-400) K/uL MPV (7.4-10.4) fL Immature Gran % (Auto) % Neut % (Auto) % Lymph % (Auto) % Robeson % (Auto) % Eos % (Auto) % Baso % (Auto) % Immature Gran # (Auto) (0.00-0.02) K/uL Neut # (Auto) (1.4-6.5) K/uL Lymph # (Auto) (1.2-3.4) K/uL Robeson # (Auto) (0.11-0.59) K/uL Eos # (Auto) (0-0.5) K/uL Baso # (Auto) (0-0.2) K/uL PT (9.0-12.0) Seconds INR (0.9-1.1) APTT (21.0-31.0) Seconds PTT Ratio VBG pH (7.36-7.41) VBG pCO2 (38-50) mmHg VBG pO2 mmHg VBG HCO3 mmol/L VBG O2 Saturation % VBG Base Excess mEq/L Barometric Pressure mm/Hg POC Sodium 129 L (135-144) mmol/L Sodium (136-145) mmol/L POC Potassium 4.5 (3.3-5.0) mmol/L Potassium (3.5-5.1) mmol/L POC Chloride 92 L (101-112) mmol/L Chloride (98-107) mmol/L Carbon Dioxide (21-32) mmol/L POC Total CO2 27 (24-31) mmol/L Anion Gap (3-11) POC Anion Gap 15.0 L (16-25) mmol/L POC BUN 25 H (7-18) mg/dl BUN (7-18) mg/dl Creatinine (0.6-1.4) mg/dl POC Creatinine 0.6 (0.6-1.3) mg/dl Est Cr Clr Drug Dosing ml/min Est GFR ( Amer) Est GFR (Non-Af Amer) BUN/Creatinine Ratio (10-20) Glucose (70-99) mg/dl POC Glucose (70-99) mg/dl POC Glucose (other) 287 H (70-99) mg/dl Osmolality (280-300) mOsm/kg Lactate (0.4-2.0) mmol/L Calcium (8.5-10.1) mg/dl POC Ioniz Calcium Tahir 1.00 L (1.12-1.32) mmol/l Phosphorus (2.5-4.9) mg/dl Magnesium (1.8-2.4) mg/dl Total Bilirubin (0.2-1) mg/dl Direct Bilirubin (0-0.2) mg/dl AST (15-37) U/L ALT (12-78) U/L Alkaline Phosphatase (45-117) U/L Troponin I (0-0.045) ng/ml Total Protein (6.4-8.2) gm/dl Albumin (3.4-5.0) gm/dl Globulin (2.5-4.0) gm/dl Albumin/Globulin Ratio (0.9-2) Lipase (73-393) U/L Beta-Hydroxybutyric Acd (0.2-2.81) mg/dl Urine Color Urine Appearance (Clear) Urine pH (4.5-7.5) Ur Specific [place] (1.000-1.030) Urine Protein (Negative) Urine Glucose (UA) (Negative) Urine Ketones (Negative) Urine Blood (Negative) Urine Nitrite (Negative) Urine Bilirubin (Negative) Urine Urobilinogen (Negative) Ur Leukocyte Esterase (Negative) Urine WBC (Auto) (0-5) /hpf Urine RBC (Auto) (0-4) /hpf U Hyaline Cast (Auto) (0-5) /lpf U Epithel Cells (Auto) (0-5) /lpf Urine Bacteria (Auto) (Negative) Urine Osmolality (500-800) mOsm/kg Ethyl Alcohol mg/dL (0-3) mg/dl Administered Medications Hydromorphone HCl (Dilaudid) 0.5 mg IV Q3H PRN PRN Reason: Pain Stop: 01/10/20 00:13 Last Admin: 12/27/19 01:31 Dose: 0.5 mg Documented by: [id number] Sodium Chloride (Nss 1000ml) 1,000 mls @ 125 mls/hr IV .Q8H YOUSIF Stop: 01/26/20 00:13 Last Admin: 12/27/19 01:13 Dose: 125 mls/hr Documented by: [id number] Piperacillin Sod/Tazobactam (Sod 3.375 gm/ Dextrose) 115 mls @ 28.75 mls/hr IV Q8H YOUSIF; Protocol Stop: 01/03/20 02:59 Last Admin: 12/27/19 03:12 Dose: 28.8 mls/hr Documented by: [id number] Insulin Aspart (Novolog Flexpen) 0 units SC Q6 YOUSIF Stop: 01/26/20 02:29 Last Admin: 12/27/19 02:37 Dose: 4 units Documented by: [id number] Cosigned by: [id number] Discontinued Medications Diphenhydramine HCl (Benadryl) 25 mg IV NOW STA Stop: 12/26/19 18:24 Last Admin: 12/26/19 19:37 Dose: 25 mg Documented by: [id number] Sodium Chloride (Nss 1000ml) 1,000 mls @ 999 mls/hr IV .Q1H1M YOUSIF Stop: 12/26/19 19:24 Last Infusion: 12/26/19 22:09 Dose: 0 mls/hr Documented by: [id number] Admin: 12/26/19 19:40 Dose: 999 mls/hr Documented by: [id number] Famotidine (Pepcid 20mg Iv Push) 20 mg in 5 mls @ 2.5 mls/min IV NOW STA Stop: 12/26/19 18:24 Last Admin: 12/26/19 19:39 Dose: 2.5 mls/min Documented by: [id number] Prochlorperazine (Compazine) 2 mls @ 1 mls/min IV ONE ONE Stop: 12/26/19 18:24 Last Admin: 12/26/19 19:38 Dose: 1 mls/min Documented by: [id number] Multivitamins 10 ml/ Thiamine HCl 100 mg/ Folic Acid 1 mg/Sodium Chloride 1,011.2 mls @ 1,011.2 mls/hr IV .Q1H ONE Stop: 12/26/19 19:24 Last Infusion: 12/26/19 22:09 Dose: 0 mls/hr Documented by: [id number] Admin: 12/26/19 19:42 Dose: 1,011.2 mls/hr Documented by: [id number] Thiamine HCl 100 mg/ Syringe 10 mls @ 2 mls/min IV NOW STA Stop: 12/26/19 21:06 Last Admin: 12/26/19 22:08 Dose: 2 mls/min Documented by: [id number] Ceftriaxone Sodium (Rocephin) 2,000 mg in 70 mls @ 140 mls/hr IV NOW STA Stop: 12/26/19 22:05 Last Infusion: 12/26/19 23:58 Dose: 0 mls/hr Documented by: [id number] Admin: 12/26/19 23:25 Dose: 140 mls/hr Documented by: [id number] Insulin Human Regular 4 units/ (Syringe) 4 mls @ 30 mls/min IV NOW ONE Stop: 12/27/19 01:01 Last Admin: 12/27/19 01:14 Dose: 30 mls/min Documented by: [id number] Cosigned by: [id number] Ioversol (Optiray 320 100ml) 94 ml IV ONCE PRN PRN Reason: Interaction Checking Stop: 12/30/19 20:12 Last Admin: 12/26/19 20:13 Dose: 94 ml Documented by: [id number] Morphine Sulfate (Morphine Sulfate) 4 mg IV NOW STA Stop: 12/26/19 22:09 Last Admin: 12/26/19 22:59 Dose: 4 mg Documented by: [id number] Blood Pressure Blood Pressure Findings: Normal blood pressure Discharge Plan Visit Data *Final* Discharge Date/Time: 12/26/19 23:56 Chief Complaint: Abdominal Pain Stated Complaint: AB PAIN ED Provider: Pravin Harper Discharge Problem: Small bowel obstruction, Gastritis and duodenitis, Nausea & vomiting, Leukocytosis, Ketosis Patient Disposition: Admitted As Inpatient Discharge Instructions Interventions: ED Discharge Assessment Last Done: 12/26/19 23:56 Discharge Problem: Nausea & vomiting Qualifiers: Vomiting type: unspecified Vomiting Intractability: intractable Qualified Code(s): R11.2 - Nausea with vomiting, unspecified Leukocytosis Qualifiers: Leukocytosis type: unspecified Qualified Code(s): D72.829 - Elevated white blood cell count, unspecified
[2019-12-26] MEDS ORDERED: DiphenhydrAMINE HCL 50 MG/ML VIAL IV STA (18:23)
[2019-12-26] MEDS ORDERED: FAMOTIDINE 20MG IV PUSH 20 MG/5 ML SYR IV STA (18:23)
[2019-12-26] MEDS ORDERED: PROCHLORPERAZINE 2 ML IV ONE (18:23)
[2019-12-26] MEDS ORDERED: SODIUM CHLORIDE 0.9% 1000ML 1,000 ML IV SCH (18:24)
[2019-12-26] MEDS ORDERED: MULTI-VITAMIN INFUSION 10 ML, THIAMINE HCL 100 MG, FOLIC ACID 1 MG in SODIUM CHLORIDE 0... IV ONE (18:25)
[2019-12-26 19:04] LABS: Basophils # (auto) 0.01 K/uL (0-0.2); Basophils % (auto) 0.1 %; Hematocrit (blood only) 51.9 % (42-52); Hemoglobin 17.8 g/dL (14.0-18.0); Immature Granulocytes # (auto) 0.06 K/uL (0.00-0.02); Immature Granulocytes % (auto) 0.3 %; Lymphocytes # (auto) 1.31 K/uL (1.2-3.4); Lymphocytes % (auto) 7.2 %; Mean Corpuscular Hemoglobin 33.3 pg (25-34); Mean Corpuscular Hgb Conc 34.3 g/dL (32-36); Mean Corpuscular Volume 97.2 fL (80-100); Mean Platelet Volume 12.4 fL (7.4-10.4); Monocytes # (auto) 0.62 K/uL (0.11-0.59); Monocytes % (auto) 3.4 %; Neutrophils # (auto) 16.23 K/uL (1.4-6.5); Platelet Count 206 K/uL (130-400); RDW Coefficient of Variation 12.8 % (11.5-14.5); RDW Standard Deviation 45.9 fL (36.4-46.3); Red Blood Count 5.34 M/uL (4.7-6.1); White Blood Count 18.23 K/uL (4.8-10.8)
--- NOTE | 2019-12-26 19:08 | XRay Report ---
SINGLE VIEW CHEST CLINICAL HISTORY: Atypical chest pain. FINDINGS: An AP, portable, upright chest radiograph is compared to study dated 11/29/2018. The cardiom ediastinal silhouette is unremarkable. The lungs and pleural spaces are clear. No pneumothorax is see n. There is chronic posttraumatic deformity of the right clavicle. IMPRESSION: No active disease in the chest. ACT 112: Negative or not required by law. Electronically signed by: Navid Da Silva M.D. 12/26/2019 7:06 PM
[2019-12-26 19:15] LABS: Partial Thromboplastin Ratio 0.9; Partial Thromboplastin Time 25.7 Seconds (21.0-31.0); Prothrombin Time 10.3 Seconds (9.0-12.0)
[2019-12-26 19:17] LABS: HCO3 VBG 35 mmol/L; PCO2 VBG 63 mmHg (38-50); PO2 VBG 21 mmHg; pH VBG 7.37 (7.36-7.41)
[2019-12-26 19:18] LABS: iSTAT Creatinine 0.7 mg/dl (0.6-1.3); iSTAT Hemoglobin 19.4 g/dl (14.0-18.0); iSTAT Ionized Calcium 0.97 mmol/l (1.12-1.32); iSTAT Potassium 3.7 mmol/L (3.3-5.0)
[2019-12-26 19:31] LABS: Oxygen Saturation VBG < 60.0 %
[2019-12-26] MEDS ORDERED: IOVERSOL 100ml IV PRN (20:13)
--- NOTE | 2019-12-26 20:34 | CT Scan Report ---
CT SCAN OF THE ABDOMEN AND PELVIS WITH IV CONTRAST CLINICAL HISTORY: Generalized abdominal pain. Nausea and vomiting. COMPARISON STUDY: Abdominal CT dated 05/19/2016. Abdominal MRI dated 03/16/2018. TECHNIQUE: Following the IV administration of 94 cc of Optiray 320, CT scan of the abdomen and pelvi s is performed from the lung bases to the proximal femora. Images are reviewed in the axial, sagittal , and coronal planes. IV contrast was administered without complication. A dose lowering technique wa s utilized adhering to the principles of ALARA. CT DOSE: 268.67 mGy.cm FINDINGS: Lung bases: The heart is normal in size and without pericardial effusion. The lung bases are clear. Liver: The contrast-enhanced liver is normal in size, contour, and attenuation. There is mild intrahe patic biliary ductal dilatation. The hepatic veins and portal veins are patent. Gallbladder: Surgically absent noting clips in the gallbladder fossa. Spleen: Normal in size and attenuation. Pancreas: The pancreas is atrophic. The pancreatic head appears heterogeneous. There are coarse calci fications in the pancreatic head and scattered throughout the pancreatic parenchyma suggesting chroni c pancreatitis. Small cystic foci are again suggested in the pancreatic head. Prominence of the pancr eatic duct is similar to previous unlikely to parenchymal atrophy. Adrenal glands: Unremarkable. Kidneys: The contrast enhanced kidneys are normal in size and without hydronephrosis. The kidneys enh ance symmetrically. Small complex cysts are unchanged from previous. Abdominal vasculature: The abdominal aorta is normal in course and caliber noting mild to moderate at herosclerotic calcification. Stomach and bowel: There is a small hiatal hernia. The stomach is distended and fluid-filled. The gas tric mucosa appears hyperemic, and there is mild mucosal edema which greatest involving the distal es ophagus and proximal duodenum. There is marked narrowing of the proximal duodenum at the level of the pancreatic head. This is best seen on image #[id number]., This likely causes obstruction. There is moderate colonic fecal retention. No distal small bowel loops and colon are normal in caliber. No pneumatosis intestinalis or portal venous gas is seen. The appendix is not identified and reported surgically a bsent. Peritoneum: There is no intraperitoneal free air or abdominal ascites. Lymphadenopathy: None. Pelvic viscera: The prostate gland is mildly enlarged and heterogeneous. The bladder is distended but grossly unremarkable. Skeletal structures: No lytic or blastic lesions are seen. IMPRESSION: 1. The stomach is markedly distended and fluid-filled to the level of the duodenum at the pancreatic head. This likely represents obstruction. 2. The gastric mucosa is hyperemic, with mucosal edema involving predominantly the distal esophagus a nd proximal duodenum. Correlate clinically for evidence of superimposed gastroesophagitis/duodenitis. 3. There is heterogeneity of the pancreatic head with evidence of chronic pancreatitis. 4. As noted above the level of duodenal obstruction is at the level of the pancreatic head. This coul d be potentially be related to stricture or possibly obstructing mass lesion. GI consultation is advi sed. Consider endoscopy for further assessment. 5. No intraperitoneal free air is seen. There is no pneumatosis intestinalis or portal venous gas. ACT 112: Negative or not required by law. Electronically signed by: Navid Da Silva M.D. 12/26/2019 8:32 PM
[2019-12-26 20:59] LABS: Alanine Aminotransferase 209 U/L (12-78); Albumin Level 3.9 gm/dl (3.4-5.0); Aspartate Aminotransferase 60 U/L (15-37); BUN Creatinine Ratio 1.6 (10-20); Bilirubin Direct 0.2 mg/dl (0-0.2); Blood Urea Nitrogen 2 mg/dl (7-18); Calcium 9.2 mg/dl (8.5-10.1); Chloride 86 mmol/L (98-107); Creatinine Clr Calc Pharmacy 67.1 ml/min; Est GFR (African American) 99.5; Est GFR (Non-African American) 85.8; Lipase 25 U/L (73-393); Magnesium 2.2 mg/dl (1.8-2.4); Potassium 3.8 mmol/L (3.5-5.1); Sodium 129 mmol/L (136-145)
[2019-12-26] MEDS ORDERED: THIAMINE HCL 100 MG in SYRINGE 9 ML IV STA (21:02)
[2019-12-26 21:04] LABS: Albumin Globulin Ratio 0.8 (0.9-2); Alkaline Phosphatase 831 U/L (45-117); Bilirubin,Total 0.5 mg/dl (0.2-1); Globulin 4.8 gm/dl (2.5-4.0); Total Protein 8.7 gm/dl (6.4-8.2); Troponin I < 0.015 ng/ml (0-0.045)
[2019-12-26 21:06] LABS: Carbon Dioxide 30 mmol/L (21-32)
[2019-12-26] MEDS ORDERED: cefTRIAXone SODIUM 2,000 MG/70 ML BAG IV STA (21:36)
[2019-12-26 21:48] LABS: Glucose 325 mg/dl (70-99)
[2019-12-26 21:49] LABS: Phosphorus 3.8 mg/dl (2.5-4.9)
[2019-12-26] MEDS ORDERED: MoRPHine SULFATE 4 MG/ML 1 ML CARP\\VIAL IV STA (22:08)
[2019-12-26 22:13] LABS: Appearance Urine Clear (Clear); Bacteria Urine Automated Negative (Negative); Bilirubin Urine Negative (Negative); Blood Urine Trace (Negative); Cast Urine Automated 0 /lpf (0-5); Color Urine Yellow; Glucose Urine UA 3+ (Negative); Ketones Urine 3+ (Negative); Leukocyte Esterase Urine Negative (Negative); Nitrite Urine Negative (Negative); Protein Urine Negative (Negative); RBC Urine Automated 0-4 /hpf (0-4); Specific Gravity Urine > 1.045 (1.000-1.030); Urobilinogen Urine Negative (Negative)
[2019-12-26 22:55] LABS: iSTAT Creatinine 0.6 mg/dl (0.6-1.3); iSTAT Hemoglobin 14.6 g/dl (14.0-18.0); iSTAT Potassium 4.5 mmol/L (3.3-5.0)
[2019-12-27] MEDS ORDERED: PNEUMOCOCCAL POLYSACCHARIDES 25 MCG/0.5 ML VIAL/SYR IM ONE
[2019-12-27] MEDS ORDERED: PNEUMOCOCCAL ADMINISTRATION CHARGE ONE
[2019-12-27] MEDS ORDERED: PIPERACILL/TAZOBAC CONSULT ACTIVE PRN (00:14)
[2019-12-27] MEDS ORDERED: NovoLIN-R INSULIN PER UNIT CHARGE IV STA (00:14)
[2019-12-27] MEDS ORDERED: LIDOCAINE HCL 5% OINT 30 GM TUBE TOP PRN (00:14)
[2019-12-27] MEDS ORDERED: INSULIN HUMAN REGULAR PER UNIT 4 UNITS in SYRINGE 3.96 ML IV ONE (01:00)
[2019-12-27] MEDS: SODIUM CHLORIDE 0.9% 1000ML 1,000 ML IV SCH ×3 (01:13→18:18)
[2019-12-27] MEDS: HYDROmorphone INJ 0.5 MG/0.5 ML SYR IV PRN ×3 (01:31→21:21)
--- NOTE | 2019-12-27 01:45 | History and Physical Report ---
DATE OF ADMISSION: 12/26/2019 CHIEF COMPLAINT: Abdominal pain, nausea and vomiting. HISTORY OF PRESENT ILLNESS: This 54-year-old male with past medical history significant for alcohol chronic pancreatitis, type 2 diabetes, pancreatic insufficiency, hyperlipidemia, chronic sinusitis, chronic cough from smoking, chronic hepatitis C, not treated yet, gastroesophageal reflux disease, partial gastric outlet obstruction, history of epilepsy, chronic back pain, generalized anxiety disorder, tobacco use disorder, presents with abdominal pain. The patient says about 1 week he is having epigastric abdominal pain radiating to the back, very severe, associated with several episodes of vomiting, no blood in the vomitus, bowel movement was 3-4 days ago, it was normal. No blood in the stools. Normal bladder movements. Denies any fever. Sometime when the pain is severe, he feels hot and chilly. He has smoker's cough. Denies any shortness of breath, no chest pain. Has some mild headache, no dizziness, no earache, no runny nose, no sore throat. Asking for pain medication. Hemodynamics are stable. denies any loss of smell or taste. denies exposure to covid . ALLERGIES: DILANTIN. PAST MEDICAL HISTORY: As mentioned above. PAST SURGICAL HISTORY: Augmentation of the facial bones, EGD with endoscopic ultrasounds, ERCP, laparoscopic cholecystectomy. MEDICATIONS: The patient is on gabapentin 600 mg p.o. t.i.d., insulin 70/30, 14 units b.i.d., Protonix 40 mg b.i.d., aspirin 81 mg p.o. daily, Lamictal 50 mg p.o. daily, albuterol 2 puffs inhalation q.i.d. p.r.n., Lipitor 40 mg p.o. daily, Suboxone two films sublingual b.i.d., lidocaine topical b.i.d., metformin XR 500 mg p.o. b.i.d. FAMILY HISTORY: Significant for brother with colon cancer, heart disorder. Mother has heart disorder, hypertension. Maternal grandfather has epilepsy. SOCIAL HISTORY: Lives with his girlfriend, smokes 2 packs a day for 34 years. He says he has quit drinking alcohol about a year ago. Smokes marijuana. REVIEW OF SYMPTOMS: As per HPI. Rest of review of symptoms negative. PHYSICAL EXAMINATION: GENERAL: The patient is of moderate build, not in acute distress. CURRENT VITAL SIGNS: Temperature 36.8, pulse 64, respiratory rate 12, blood pressure 118/73, oxygen 97% on room air. HEENT: No pallor, no icterus. NECK: No JVD, no neck masses, no carotid bruit. Supple. CARDIOVASCULAR: S1, S2 heard, regular rate and rhythm, no murmur, no gallop. RESPIRATORY SYSTEM: Normal AP diameter. No accessory muscle use. No wheezing, no crackles. ABDOMEN: Soft. Bowel sounds sluggish. Epigastric tenderness present. Mild guarding, no rigidity. No distention. CENTRAL NERVOUS SYSTEM: Cranial nerves II-XII grossly intact, nonfocal. EXTREMITIES: No edema, no erythema. LABORATORY DATA: WBC 18.2, hemoglobin 17.8, hematocrit 51.9, platelets 206. PT 10.3, INR 1, APTT 25.7. Venous blood gases pH of 7.3, pCO2 of 63, pO2 of 21, bicarbonate 25. Sodium 129, potassium 3.8, chloride 86, bicarbonate 30, BUN 2, creatinine 0.9, serum glucose 325. Osmolality 299. Lactate 2.4, calcium 9.2, phosphorus 3.8, magnesium 2.2, total bilirubin 0.4, direct bilirubin 0.2, AST 60, ALT 209, alkaline phosphatase 831. Troponin I less than 0.015. Lipase 25. Beta hydroxybutyric acid 1.8. Urinalysis, +3 ketones, +3 glucose. Ethyl alcohol less than 3. IMAGING: CT of abdomen and pelvis shows stomach is markedly distended and fluid filled to the level of the duodenum at the pancreatic head. This likely represents obstruction, possible superimposed gastroesophagitis or duodenitis. Duodenal obstruction is at the level of pancreatic head with evidence of chronic pancreatitis, possible stricture or possible obstructing lesion at the pancreatic head. Chest x-ray: No acute disease in the chest. EKG: Sinus bradycardia, at a rate of 57, no significant change was found. ASSESSMENT AND PLAN: This 54-year-old male presents with abdominal pain. 1. Abdominal pain, history of possible gastric outlet obstruction, questionable pancreatic mass of the head. History of questionable pancreatic cyst or stones and failed outpatient followup.Ct scan showing Stomach obstruction. S/p NG tube, npo, iv fluids, iv pain meds and antiemetics prn GI consult in am.Also has hx of chronic pancreatitis. 2. Diabetes, is uncontrolled, sugars are high. We will give dose of IV insulin, will hold his oral medications and 70/[address] on Lantus and sliding scale. Follow the blood sugars. 3. Leukocytosis and elevated lactic acid of 2.4. No obvious signs of infection, possible aspiration. We will empirically treat with Zosyn and follow the repeat lactic acid. Follow the cultures and labs. 4. Hyponatremia. Sodium 129, possibly from elevated glucose We will follow repeat labs. 5.Gastroesophagitis/duodenitis. On ct scan. IV Protonix bid. Await Gi input. 6. Alcoholism. The patient says quit 1 year ago.Will monitor. 7. Elevated LFTs. We will follow r repeat labs in a.m. 8. History of epilepsy on Lamictal and gabapentin. 9. Chronic pain, on Suboxone. We will use gentle narcotics if needed. 10. Hyperlipidemia: We will hold the statin for now. 11. Hepatitis C, not treated. Needs followup. 12. Tobacco abuse. Needs counseling. 13. Deep venous thrombosis prophylaxis, sequential compression devices. DISPOSITION: Closely monitor on the medical floor. Level 1 full code. Expect discharge home and follow with family doctor and GI. SREEDHAR
[2019-12-27] MEDS ORDERED: ALBUTEROL HFA 8 GM INHALER INH PRN (02:19)
[2019-12-27] MEDS ORDERED: DEXTROSE 50% 50 ML SYRINGE IV PRN (02:30)
[2019-12-27] MEDS ORDERED: GLUCOSE 10 TABS/TUBE PO PRN (02:30)
[2019-12-27] MEDS ORDERED: GLUCOSE 40% GEL 15 GM TUBE PO PRN (02:30)
[2019-12-27] MEDS ORDERED: GLUCAGON FOR INJ 1 MG VIAL IM PRN (02:30)
[2019-12-27] MEDS ORDERED: CARBOHYDRATES FOR HYPOGLYCEMIA PO PRN (02:30)
[2019-12-27] MEDS: INSULIN ASPART 100 UNITS/ML 3 ML PEN SC SCH ×5 (02:37→23:50)
[2019-12-27] MEDS: PIPERACILLIN/TAZOBACTAM 3.375 GM in DEXTROSE 5% 100 ML IV SCH ×3 (03:12→21:11)
[2019-12-27 04:22] LABS: Basophils # (auto) 0.02 K/uL (0-0.2); Basophils % (auto) 0.1 %; Eosinophils # (auto) 0.01 K/uL (0-0.5); Eosinophils % (auto) 0.1 %; Hematocrit (blood only) 39.3 % (42-52); Hemoglobin 13.2 g/dL (14.0-18.0); Immature Granulocytes # (auto) 0.04 K/uL (0.00-0.02); Immature Granulocytes % (auto) 0.2 %; Lymphocytes # (auto) 2.78 K/uL (1.2-3.4); Lymphocytes % (auto) 16.8 %; Mean Corpuscular Hemoglobin 32.4 pg (25-34); Mean Corpuscular Hgb Conc 33.6 g/dL (32-36); Mean Corpuscular Volume 96.3 fL (80-100); Mean Platelet Volume 11.8 fL (7.4-10.4); Monocytes % (auto) 7.3 %; Neutrophils # (auto) 12.45 K/uL (1.4-6.5); Neutrophils % (auto) 75.5 %; Platelet Count 162 K/uL (130-400); RDW Coefficient of Variation 12.8 % (11.5-14.5); RDW Standard Deviation 44.9 fL (36.4-46.3); Red Blood Count 4.08 M/uL (4.7-6.1)
[2019-12-27 04:28] LABS: BUN Creatinine Ratio 25.6 (10-20); Calcium 7.2 mg/dl (8.5-10.1); Creatinine Clr Calc Pharmacy 90.5 ml/min; Est GFR (Non-African American) 106.1
[2019-12-27 04:33] LABS: Potassium 4.4 mmol/L (3.5-5.1)
[2019-12-27] MEDS ORDERED: CALCIUM GLUCONATE 10% 10 ML VIAL IV STA (06:09)
[2019-12-27 06:10] LABS: Estimated Average Glucose 232 mg/dl; Hemoglobin A1C 9.7 % (4.5-5.6)
[2019-12-27] MEDS ORDERED: CALCIUM GLUCONATE 10% 1,000 MG in SODIUM CHLORIDE 0.9% 50 ML IV STA (06:13)
--- NOTE | 2019-12-27 08:36 | Gastrointestinal Consultation ---
Date of Consultation December 27, 2019 Assessment & Plan (1) Abdominal pain: 54 year old male w/ history of T2DM, chronic pancreatitis w/ pancreatic insufficiency, dyslipidemia, HCV treatment naive, GERD presenting with acute on chronic abd pain associated with a 30 lb weight loss in 1 month CTAP concerning for GOO, noted LFT elevation w/ ALKP >800 NPO Stat KUB If distended will need NG placement EGD today if KUB without marked distention Otherwise would recommend NG for decompression and EGD tomorrow IV PPI BID Strict ETOH cessation, tobacco cessation Should have dedicated liver, pancreas imaging and AFP after acute issues addressed Thank you for allowing us to participate in the care of this patient. Please call with any acute changes, questions or concerns. Please see addendum below with additional recommendation from my supervising physician. (2) Nausea & vomiting: Supervising Physician Co-Signing Physician Notes I have discussed the management with KELLY Renner. Patient is now moved to a covid rule out room. Agree with further plan of care as per Holly's assessment and plan. Apparently, he is being ruled out for covid and can't tolerate ng tube placement per nursing report. History of Present Illness Reason for Consultation: GOO Requesting Physician: Jose Attending Physician: Tee Garcia MD History of Present Illness 54 year old male with history of T2DM, chronic pancreatitis w/ pancreatic insufficiency, dyslipidemia, HCV treatment naive, GERD who presents through the ED w/ acute on chronic abdominal pain, worsening GERD, CTAP concerning for GOO - GI asked to evaluate. Pt was seen and evaluated, chart reviewed. He is a poor historian. Endorses a history of benign pancreatic mass diagnosed years ago. Atributes his chronic pain to this. In the past 1-2 weeks has had worsening abd pain. Epigastric in location. Sharp. Constant. Associated with nausea and bilious emesis. Denies any black or bloody emesis. Denies change in appetite but does report a 30 lb weight loss in 1 month. No change in BM. No black or bloody stools. This AM pain still present but less severe. Chart review indicates EUS in 2018 w/ pancreatic cysts in the setting of chronic pancreatitis and was recommend to follow up with surgery to discuss Whipple. CTAP: The stomach is markedly distended and fluid-filled to the level of the duodenum at the pancreatic head. This likely represents obstruction. The gastric mucosa is hyperemic, with mucosal edema involving predominantly the distal esophagus and proximal duodenum. Correlate clinically for evidence of superi mposed gastroesophagitis/duodenitis.There is heterogeneity of the pancreatic head with evidence of chronic pancreatitis. As noted above the level of duodenal obstruction is at the level of the pancreatic head. This could be potentially be related to stricture or possibly obstructing mass lesion. GI consultation is advised. Consider endoscopy for further assessment. No intraperitoneal free air is seen. There is no pneumatosis intestinalis or portal venous gas EGD 2018: The examined esophagus was normal.The entire examined stomach was normal.The examined duodenum was normal. EUS 2018: Pancreatic parenchymal abnormalities consisting of calcifications, hyperechoic foci and cysts were noted in thepancreatic head. Moderately Severe Chronic Pancreatitis The pancreatic duct had a dilated endosonographic appearance and had intraductal stones in the pancreatic head. The pancreatic duct measured up to 5 mm in diameter.There was no sign of significant pathology in the common bile duct. There was no evidence of significant pathology in the left lobe of the liver. There was no sign of significant pathology in the ampulla. No specimens collected. Allergies Allergy/AdvReac Type Severity Reaction Status Date / Time phenytoin AdvReac Intermediate "IT MAKES Verified 12/26/19 21:47 ME CRAZY" Home Medications Home Medications Medication Instructions Recorded Confirmed Type acetaminophen [Tylenol Extra 1,500 mg PO DAILY PRN 11/29/18 12/26/19 History Strength] albuterol sulfate [ProAir HFA] 2 puff INHALATION QID PRN 11/29/18 12/26/19 History aspirin [Aspir-81] 81 mg PO DAILY 11/29/18 12/26/19 History atorvastatin [Lipitor] 40 mg PO DAILY 11/29/18 12/26/19 History gabapentin [Neurontin] 600 mg PO TID 11/29/18 12/26/19 History insulin NPH and regular human 14 unit SUBCUT BID 11/29/18 12/26/19 History [Humulin 70/30 U-100 Insulin] lidocaine 1 applic TOPICAL BID PRN 11/29/18 12/26/19 History metformin [Glucophage XR] 500 mg PO BID 11/29/18 12/26/19 History pantoprazole 40 mg PO BID 11/29/18 11/29/18 History buprenorphine-naloxone [Suboxone] 2 film SUBLINGUAL BID 12/26/19 12/26/19 History lamotrigine [Lamictal] 50 mg PO DAILY 12/26/19 12/26/19 History Patient History Medical History Alcohol abuse (Acute) Chronic pancreatitis (Chronic) Diabetes (Chronic) Hepatitis C (Acute) Social History Preferred Language: [place] Communication Ability: Effective Manager Oracle Required: No Beliefs That Will Affect Care: None Current Living Situation: Significant Other Feels Safe at Home: Yes Smoking Status: Current every day smoker Tobacco Type: cigarettes ; Cigarettes Per Day: 40 ; Do You Dip or Chew Tobacco: No ; Hx Alcohol Use: No Review of Systems Review of Systems: + weight loss Constitutional: no fever and no chills Respiratory: no cough Cardiovascular: no chest pain and no dyspnea Gastrointestinal: + abdominal pain, + bloating, + heartburn, + nausea and + vomiting; no melena Physical Exam Constitutional: + not well developed, + not well nourished and no acute distress Neck: trachea midline Respiratory: normal respiratory effort Gastrointestinal (Abdomen): Percussion/Palpation: + abdomen tender and abdomen soft; no guarding and abdomen not rigid Skin: no rashes, warm and dry Results & Data ([facility]) Vital Signs (Past 12 Hours) Vital Signs Temp Pulse Pulse Pulse Resp BP BP 12/27/19 07:18 37.0 C 67 16 12/27/19 00:05 38.0 C H 74 16 12/26/19 23:49 70 18 132/92 12/26/19 23:00 65 12 118/73 12/26/19 22:30 86 13 12/26/19 22:00 83 15 12/26/19 21:30 82 22 146/86 H 12/26/19 21:01 76 17 12/26/19 21:00 75 18 121/82 BP Pulse Ox 12/27/19 07:18 104/54 L 91 12/27/19 00:05 135/72 93 12/26/19 23:49 92 12/26/19 23:00 92 12/26/19 22:30 12/26/19 22:00 93 12/26/19 21:30 12/26/19 21:01 12/26/19 21:00 Laboratory Results 12/27/19 12/27/19 12/27/19 Range/Units 06:05 03:53 03:53 WBC (4.8-10.8) K/uL RBC (4.7-6.1) M/uL Hgb (14.0-18.0) g/dL POC Hgb (14.0-18.0) g/dl Hct (42-52) % POC Hct (42-52) % MCV (80-100) fL MCH (25-34) pg MCHC (32-36) g/dL RDW Std Deviation (36.4-46.3) fL RDW Coeff of Elda (11.5-14.5) % Plt Count (130-400) K/uL MPV (7.4-10.4) fL Immature Gran % (Auto) % Neut % (Auto) % Lymph % (Auto) % Isabela % (Auto) % Eos % (Auto) % Baso % (Auto) % Immature Gran # (Auto) (0.00-0.02) K/uL Neut # (Auto) (1.4-6.5) K/uL Lymph # (Auto) (1.2-3.4) K/uL Isabela # (Auto) (0.11-0.59) K/uL Eos # (Auto) (0-0.5) K/uL Baso # (Auto) (0-0.2) K/uL PT (9.0-12.0) Seconds INR (0.9-1.1) APTT (21.0-31.0) Seconds PTT Ratio VBG pH (7.36-7.41) VBG pCO2 (38-50) mmHg VBG pO2 mmHg VBG HCO3 mmol/L VBG O2 Saturation % VBG Base Excess mEq/L Barometric Pressure mm/Hg POC Sodium (135-144) mmol/L Sodium 135 L (136-145) mmol/L POC Potassium (3.3-5.0) mmol/L Potassium 4.4 D (3.5-5.1) mmol/L POC Chloride (101-112) mmol/L Chloride 104 (98-107) mmol/L Carbon Dioxide 26 (21-32) mmol/L POC Total CO2 (24-31) mmol/L Anion Gap 5.0 (3-11) POC Anion Gap (16-25) mmol/L POC BUN (7-18) mg/dl BUN 18 D (7-18) mg/dl Creatinine 0.69 (0.6-1.4) mg/dl POC Creatinine (0.6-1.3) mg/dl Est Cr Clr Drug Dosing 90.5 ml/min Est GFR ( Amer) 123.0 Est GFR (Non-Af Amer) 106.1 BUN/Creatinine Ratio 25.6 H (10-20) Glucose 201 H (70-99) mg/dl POC Glucose 166 H (70-99) mg/dl POC Glucose (other) (70-99) mg/dl Estimat Average Glucose 232 mg/dl Hemoglobin A1c 9.7 H (4.5-5.6) % Osmolality (280-300) mOsm/kg Lactate (0.4-2.0) mmol/L Calcium 7.2 L D (8.5-10.1) mg/dl POC Ioniz Calcium Tahir (1.12-1.32) mmol/l Phosphorus (2.5-4.9) mg/dl Magnesium 2.0 (1.8-2.4) mg/dl Total Bilirubin (0.2-1) mg/dl Direct Bilirubin (0-0.2) mg/dl AST (15-37) U/L ALT (12-78) U/L Alkaline Phosphatase (45-117) U/L Troponin I (0-0.045) ng/ml Total Protein (6.4-8.2) gm/dl Albumin (3.4-5.0) gm/dl Globulin (2.5-4.0) gm/dl Albumin/Globulin Ratio (0.9-2) Lipase (73-393) U/L Beta-Hydroxybutyric Acd (0.2-2.81) mg/dl Urine Color Urine Appearance (Clear) Urine pH (4.5-7.5) Ur Specific [place] (1.000-1.030) Urine Protein (Negative) Urine Glucose (UA) (Negative) Urine Ketones (Negative) Urine Blood (Negative) Urine Nitrite (Negative) Urine Bilirubin (Negative) Urine Urobilinogen (Negative) Ur Leukocyte Esterase (Negative) Urine WBC (Auto) (0-5) /hpf Urine RBC (Auto) (0-4) /hpf U Hyaline Cast (Auto) (0-5) /lpf U Epithel Cells (Auto) (0-5) /lpf Urine Bacteria (Auto) (Negative) Urine Osmolality (500-800) mOsm/kg Ethyl Alcohol mg/dL (0-3) mg/dl 12/27/19 12/27/19 12/27/19 Range/Units 03:53 03:53 02:35 WBC 16.50 H (4.8-10.8) K/uL RBC 4.08 L (4.7-6.1) M/uL Hgb 13.2 L D (14.0-18.0) g/dL POC Hgb (14.0-18.0) g/dl Hct 39.3 L (42-52) % POC Hct (42-52) % MCV 96.3 (80-100) fL MCH 32.4 (25-34) pg MCHC 33.6 (32-36) g/dL RDW Std Deviation 44.9 (36.4-46.3) fL RDW Coeff of Elda 12.8 (11.5-14.5) % Plt Count 162 (130-400) K/uL MPV 11.8 H (7.4-10.4) fL Immature Gran % (Auto) 0.2 % Neut % (Auto) 75.5 % Lymph % (Auto) 16.8 % Isabela % (Auto) 7.3 % Eos % (Auto) 0.1 % Baso % (Auto) 0.1 % Immature Gran # (Auto) 0.04 H (0.00-0.02) K/uL Neut # (Auto) 12.45 H (1.4-6.5) K/uL Lymph # (Auto) 2.78 (1.2-3.4) K/uL Isabela # (Auto) 1.20 H (0.11-0.59) K/uL Eos # (Auto) 0.01 (0-0.5) K/uL Baso # (Auto) 0.02 (0-0.2) K/uL PT (9.0-12.0) Seconds INR (0.9-1.1) APTT (21.0-31.0) Seconds PTT Ratio VBG pH (7.36-7.41) VBG pCO2 (38-50) mmHg VBG pO2 mmHg VBG HCO3 mmol/L VBG O2 Saturation % VBG Base Excess mEq/L Barometric Pressure mm/Hg POC Sodium (135-144) mmol/L Sodium (136-145) mmol/L POC Potassium (3.3-5.0) mmol/L Potassium (3.5-5.1) mmol/L POC Chloride (101-112) mmol/L Chloride (98-107) mmol/L Carbon Dioxide (21-32) mmol/L POC Total CO2 (24-31) mmol/L Anion Gap (3-11) POC Anion Gap (16-25) mmol/L POC BUN (7-18) mg/dl BUN (7-18) mg/dl Creatinine (0.6-1.4) mg/dl POC Creatinine (0.6-1.3) mg/dl Est Cr Clr Drug Dosing ml/min Est GFR ( Amer) Est GFR (Non-Af Amer) BUN/Creatinine Ratio (10-20) Glucose (70-99) mg/dl POC Glucose 254 H (70-99) mg/dl POC Glucose (other) (70-99) mg/dl Estimat Average Glucose mg/dl Hemoglobin A1c (4.5-5.6) % Osmolality (280-300) mOsm/kg Lactate 1.4 (0.4-2.0) mmol/L Calcium (8.5-10.1) mg/dl POC Ioniz Calcium Tahir (1.12-1.32) mmol/l Phosphorus (2.5-4.9) mg/dl Magnesium (1.8-2.4) mg/dl Total Bilirubin (0.2-1) mg/dl Direct Bilirubin (0-0.2) mg/dl AST (15-37) U/L ALT (12-78) U/L Alkaline Phosphatase (45-117) U/L Troponin I (0-0.045) ng/ml Total Protein (6.4-8.2) gm/dl Albumin (3.4-5.0) gm/dl Globulin (2.5-4.0) gm/dl Albumin/Globulin Ratio (0.9-2) Lipase (73-393) U/L Beta-Hydroxybutyric Acd (0.2-2.81) mg/dl Urine Color Urine Appearance (Clear) Urine pH (4.5-7.5) Ur Specific [place] (1.000-1.030) Urine Protein (Negative) Urine Glucose (UA) (Negative) Urine Ketones (Negative) Urine Blood (Negative) Urine Nitrite (Negative) Urine Bilirubin (Negative) Urine Urobilinogen (Negative) Ur Leukocyte Esterase (Negative) Urine WBC (Auto) (0-5) /hpf Urine RBC (Auto) (0-4) /hpf U Hyaline Cast (Auto) (0-5) /lpf U Epithel Cells (Auto) (0-5) /lpf Urine Bacteria (Auto) (Negative) Urine Osmolality (500-800) mOsm/kg Ethyl Alcohol mg/dL (0-3) mg/dl 12/27/19 12/26/19 12/26/19 Range/Units 00:36 22:42 22:36 WBC (4.8-10.8) K/uL RBC (4.7-6.1) M/uL Hgb (14.0-18.0) g/dL POC Hgb 14.6 (14.0-18.0) g/dl Hct (42-52) % POC Hct 43 (42-52) % MCV (80-100) fL MCH (25-34) pg MCHC (32-36) g/dL RDW Std Deviation (36.4-46.3) fL RDW Coeff of Elda (11.5-14.5) % Plt Count (130-400) K/uL MPV (7.4-10.4) fL Immature Gran % (Auto) % Neut % (Auto) % Lymph % (Auto) % Isabela % (Auto) % Eos % (Auto) % Baso % (Auto) % Immature Gran # (Auto) (0.00-0.02) K/uL Neut # (Auto) (1.4-6.5) K/uL Lymph # (Auto) (1.2-3.4) K/uL Isabela # (Auto) (0.11-0.59) K/uL Eos # (Auto) (0-0.5) K/uL Baso # (Auto) (0-0.2) K/uL PT (9.0-12.0) Seconds INR (0.9-1.1) APTT (21.0-31.0) Seconds PTT Ratio VBG pH (7.36-7.41) VBG pCO2 (38-50) mmHg VBG pO2 mmHg VBG HCO3 mmol/L VBG O2 Saturation % VBG Base Excess mEq/L Barometric Pressure mm/Hg POC Sodium 129 L (135-144) mmol/L Sodium (136-145) mmol/L POC Potassium 4.5 (3.3-5.0) mmol/L Potassium (3.5-5.1) mmol/L POC Chloride 92 L (101-112) mmol/L Chloride (98-107) mmol/L Carbon Dioxide (21-32) mmol/L POC Total CO2 27 (24-31) mmol/L Anion Gap (3-11) POC Anion Gap 15.0 L (16-25) mmol/L POC BUN 25 H (7-18) mg/dl BUN (7-18) mg/dl Creatinine (0.6-1.4) mg/dl POC Creatinine 0.6 (0.6-1.3) mg/dl Est Cr Clr Drug Dosing ml/min Est GFR ( Amer) Est GFR (Non-Af Amer) BUN/Creatinine Ratio (10-20) Glucose (70-99) mg/dl POC Glucose (70-99) mg/dl POC Glucose (other) 287 H (70-99) mg/dl Estimat Average Glucose mg/dl Hemoglobin A1c (4.5-5.6) % Osmolality (280-300) mOsm/kg Lactate 1.6 2.4 H* (0.4-2.0) mmol/L Calcium (8.5-10.1) mg/dl POC Ioniz Calcium Tahir 1.00 L (1.12-1.32) mmol/l Phosphorus (2.5-4.9) mg/dl Magnesium (1.8-2.4) mg/dl Total Bilirubin (0.2-1) mg/dl Direct Bilirubin (0-0.2) mg/dl AST (15-37) U/L ALT (12-78) U/L Alkaline Phosphatase (45-117) U/L Troponin I (0-0.045) ng/ml Total Protein (6.4-8.2) gm/dl Albumin (3.4-5.0) gm/dl Globulin (2.5-4.0) gm/dl Albumin/Globulin Ratio (0.9-2) Lipase (73-393) U/L Beta-Hydroxybutyric Acd (0.2-2.81) mg/dl Urine Color Urine Appearance (Clear) Urine pH (4.5-7.5) Ur Specific [place] (1.000-1.030) Urine Protein (Negative) Urine Glucose (UA) (Negative) Urine Ketones (Negative) Urine Blood (Negative) Urine Nitrite (Negative) Urine Bilirubin (Negative) Urine Urobilinogen (Negative) Ur Leukocyte Esterase (Negative) Urine WBC (Auto) (0-5) /hpf Urine RBC (Auto) (0-4) /hpf U Hyaline Cast (Auto) (0-5) /lpf U Epithel Cells (Auto) (0-5) /lpf Urine Bacteria (Auto) (Negative) Urine Osmolality (500-800) mOsm/kg Ethyl Alcohol mg/dL (0-3) mg/dl 12/26/19 12/26/19 12/26/19 Range/Units 22:29 22:04 22:04 WBC (4.8-10.8) K/uL RBC (4.7-6.1) M/uL Hgb (14.0-18.0) g/dL POC Hgb (14.0-18.0) g/dl Hct (42-52) % POC Hct (42-52) % MCV (80-100) fL MCH (25-34) pg MCHC (32-36) g/dL RDW Std Deviation (36.4-46.3) fL RDW Coeff of Elda (11.5-14.5) % Plt Count (130-400) K/uL MPV (7.4-10.4) fL Immature Gran % (Auto) % Neut % (Auto) % Lymph % (Auto) % Isabela % (Auto) % Eos % (Auto) % Baso % (Auto) % Immature Gran # (Auto) (0.00-0.02) K/uL Neut # (Auto) (1.4-6.5) K/uL Lymph # (Auto) (1.2-3.4) K/uL Isabela # (Auto) (0.11-0.59) K/uL Eos # (Auto) (0-0.5) K/uL Baso # (Auto) (0-0.2) K/uL PT (9.0-12.0) Seconds INR (0.9-1.1) APTT (21.0-31.0) Seconds PTT Ratio VBG pH (7.36-7.41) VBG pCO2 (38-50) mmHg VBG pO2 mmHg VBG HCO3 mmol/L VBG O2 Saturation % VBG Base Excess mEq/L Barometric Pressure mm/Hg POC Sodium (135-144) mmol/L Sodium (136-145) mmol/L POC Potassium (3.3-5.0) mmol/L Potassium (3.5-5.1) mmol/L POC Chloride (101-112) mmol/L Chloride (98-107) mmol/L Carbon Dioxide (21-32) mmol/L POC Total CO2 (24-31) mmol/L Anion Gap (3-11) POC Anion Gap (16-25) mmol/L POC BUN (7-18) mg/dl BUN (7-18) mg/dl Creatinine (0.6-1.4) mg/dl POC Creatinine (0.6-1.3) mg/dl Est Cr Clr Drug Dosing ml/min Est GFR ( Amer) Est GFR (Non-Af Amer) BUN/Creatinine Ratio (10-20) Glucose (70-99) mg/dl POC Glucose 276 H (70-99) mg/dl POC Glucose (other) (70-99) mg/dl Estimat Average Glucose mg/dl Hemoglobin A1c (4.5-5.6) % Osmolality (280-300) mOsm/kg Lactate (0.4-2.0) mmol/L Calcium (8.5-10.1) mg/dl POC Ioniz Calcium Tahir (1.12-1.32) mmol/l Phosphorus (2.5-4.9) mg/dl Magnesium (1.8-2.4) mg/dl Total Bilirubin (0.2-1) mg/dl Direct Bilirubin (0-0.2) mg/dl AST (15-37) U/L ALT (12-78) U/L Alkaline Phosphatase (45-117) U/L Troponin I (0-0.045) ng/ml Total Protein (6.4-8.2) gm/dl Albumin (3.4-5.0) gm/dl Globulin (2.5-4.0) gm/dl Albumin/Globulin Ratio (0.9-2) Lipase (73-393) U/L Beta-Hydroxybutyric Acd (0.2-2.81) mg/dl Urine Color Yellow Urine Appearance Clear (Clear) Urine pH 5.0 (4.5-7.5) Ur Specific [place] > 1.045 H (1.000-1.030) Urine Protein Negative (Negative) Urine Glucose (UA) 3+ H (Negative) Urine Ketones 3+ H (Negative) Urine Blood Trace H (Negative) Urine Nitrite Negative (Negative) Urine Bilirubin Negative (Negative) Urine Urobilinogen Negative (Negative) Ur Leukocyte Esterase Negative (Negative) Urine WBC (Auto) 1-5 (0-5) /hpf Urine RBC (Auto) 0-4 (0-4) /hpf U Hyaline Cast (Auto) 0 (0-5) /lpf U Epithel Cells (Auto) 5-10 H (0-5) /lpf Urine Bacteria (Auto) Negative (Negative) Urine Osmolality 690 (500-800) mOsm/kg Ethyl Alcohol mg/dL (0-3) mg/dl 12/26/19 12/26/19 12/26/19 Range/Units 19:05 18:52 18:52 WBC (4.8-10.8) K/uL RBC (4.7-6.1) M/uL Hgb (14.0-18.0) g/dL POC Hgb 19.4 H (14.0-18.0) g/dl Hct (42-52) % POC Hct 57 H (42-52) % MCV (80-100) fL MCH (25-34) pg MCHC (32-36) g/dL RDW Std Deviation (36.4-46.3) fL RDW Coeff of Elda (11.5-14.5) % Plt Count (130-400) K/uL MPV (7.4-10.4) fL Immature Gran % (Auto) % Neut % (Auto) % Lymph % (Auto) % Isabela % (Auto) % Eos % (Auto) % Baso % (Auto) % Immature Gran # (Auto) (0.00-0.02) K/uL Neut # (Auto) (1.4-6.5) K/uL Lymph # (Auto) (1.2-3.4) K/uL Isabela # (Auto) (0.11-0.59) K/uL Eos # (Auto) (0-0.5) K/uL Baso # (Auto) (0-0.2) K/uL PT (9.0-12.0) Seconds INR (0.9-1.1) APTT (21.0-31.0) Seconds PTT Ratio VBG pH (7.36-7.41) VBG pCO2 (38-50) mmHg VBG pO2 mmHg VBG HCO3 mmol/L VBG O2 Saturation % VBG Base Excess mEq/L Barometric Pressure mm/Hg POC Sodium 128 L (135-144) mmol/L Sodium (136-145) mmol/L POC Potassium 3.7 (3.3-5.0) mmol/L Potassium (3.5-5.1) mmol/L POC Chloride 85 L (101-112) mmol/L Chloride (98-107) mmol/L Carbon Dioxide (21-32) mmol/L POC Total CO2 31 (24-31) mmol/L Anion Gap (3-11) POC Anion Gap 17.0 (16-25) mmol/L POC BUN 29 H (7-18) mg/dl BUN (7-18) mg/dl Creatinine (0.6-1.4) mg/dl POC Creatinine 0.7 (0.6-1.3) mg/dl Est Cr Clr Drug Dosing ml/min Est GFR ( Amer) Est GFR (Non-Af Amer) BUN/Creatinine Ratio (10-20) Glucose (70-99) mg/dl POC Glucose (70-99) mg/dl POC Glucose (other) 327 H (70-99) mg/dl Estimat Average Glucose mg/dl Hemoglobin A1c (4.5-5.6) % Osmolality 299 (280-300) mOsm/kg Lactate (0.4-2.0) mmol/L Calcium (8.5-10.1) mg/dl POC Ioniz Calcium Tahir 0.97 L (1.12-1.32) mmol/l Phosphorus (2.5-4.9) mg/dl Magnesium (1.8-2.4) mg/dl Total Bilirubin (0.2-1) mg/dl Direct Bilirubin (0-0.2) mg/dl AST (15-37) U/L ALT (12-78) U/L Alkaline Phosphatase (45-117) U/L Troponin I (0-0.045) ng/ml Total Protein (6.4-8.2) gm/dl Albumin (3.4-5.0) gm/dl Globulin (2.5-4.0) gm/dl Albumin/Globulin Ratio (0.9-2) Lipase (73-393) U/L Beta-Hydroxybutyric Acd 21.81 H (0.2-2.81) mg/dl Urine Color Urine Appearance (Clear) Urine pH (4.5-7.5) Ur Specific [place] (1.000-1.030) Urine Protein (Negative) Urine Glucose (UA) (Negative) Urine Ketones (Negative) Urine Blood (Negative) Urine Nitrite (Negative) Urine Bilirubin (Negative) Urine Urobilinogen (Negative) Ur Leukocyte Esterase (Negative) Urine WBC (Auto) (0-5) /hpf Urine RBC (Auto) (0-4) /hpf U Hyaline Cast (Auto) (0-5) /lpf U Epithel Cells (Auto) (0-5) /lpf Urine Bacteria (Auto) (Negative) Urine Osmolality (500-800) mOsm/kg Ethyl Alcohol mg/dL (0-3) mg/dl 12/26/19 12/26/19 12/26/19 Range/Units 18:52 18:52 18:52 WBC (4.8-10.8) K/uL RBC (4.7-6.1) M/uL Hgb (14.0-18.0) g/dL POC Hgb (14.0-18.0) g/dl Hct (42-52) % POC Hct (42-52) % MCV (80-100) fL MCH (25-34) pg MCHC (32-36) g/dL RDW Std Deviation (36.4-46.3) fL RDW Coeff of Elda (11.5-14.5) % Plt Count (130-400) K/uL MPV (7.4-10.4) fL Immature Gran % (Auto) % Neut % (Auto) % Lymph % (Auto) % Isabela % (Auto) % Eos % (Auto) % Baso % (Auto) % Immature Gran # (Auto) (0.00-0.02) K/uL Neut # (Auto) (1.4-6.5) K/uL Lymph # (Auto) (1.2-3.4) K/uL Isabel[place] # (Auto) (0.11-0.59) K/uL Eos # (Auto) (0-0.5) K/uL Baso # (Auto) (0-0.2) K/uL PT (9.0-12.0) Seconds INR (0.9-1.1) APTT (21.0-31.0) Seconds PTT Ratio VBG pH 7.37 (7.36-7.41) VBG pCO2 63 H (38-50) mmHg VBG pO2 21 mmHg VBG HCO3 35 mmol/L VBG O2 Saturation < 60.0 % VBG Base Excess 7.0 mEq/L Barometric Pressure 739.5 mm/Hg POC Sodium (135-144) mmol/L Sodium 129 L (136-145) mmol/L POC Potassium (3.3-5.0) mmol/L Potassium 3.8 (3.5-5.1) mmol/L POC Chloride (101-112) mmol/L Chloride 86 L (98-107) mmol/L Carbon Dioxide 30 (21-32) mmol/L POC Total CO2 (24-31) mmol/L Anion Gap 17.0 H (3-11) POC Anion Gap (16-25) mmol/L POC BUN (7-18) mg/dl BUN 2 L (7-18) mg/dl Creatinine 0.98 (0.6-1.4) mg/dl POC Creatinine (0.6-1.3) mg/dl Est Cr Clr Drug Dosing 67.1 ml/min Est GFR ( Amer) 99.5 Est GFR (Non-Af Amer) 85.8 BUN/Creatinine Ratio 1.6 L (10-20) Glucose 325 H* (70-99) mg/dl POC Glucose (70-99) mg/dl POC Glucose (other) (70-99) mg/dl Estimat Average Glucose mg/dl Hemoglobin A1c (4.5-5.6) % Osmolality (280-300) mOsm/kg Lactate (0.4-2.0) mmol/L Calcium 9.2 (8.5-10.1) mg/dl POC Ioniz Calcium Tahir (1.12-1.32) mmol/l Phosphorus 3.8 (2.5-4.9) mg/dl Magnesium 2.2 (1.8-2.4) mg/dl Total Bilirubin 0.5 (0.2-1) mg/dl Direct Bilirubin 0.2 (0-0.2) mg/dl AST 60 H (15-37) U/L ALT 209 H (12-78) U/L Alkaline Phosphatase 831 H (45-117) U/L Troponin I < 0.015 (0-0.045) ng/ml Total Protein 8.7 H (6.4-8.2) gm/dl Albumin 3.9 (3.4-5.0) gm/dl Globulin 4.8 H (2.5-4.0) gm/dl Albumin/Globulin Ratio 0.8 L (0.9-2) Lipase 25 L (73-393) U/L Beta-Hydroxybutyric Acd (0.2-2.81) mg/dl Urine Color Urine Appearance (Clear) Urine pH (4.5-7.5) Ur Specific [place] (1.000-1.030) Urine Protein (Negative) Urine Glucose (UA) (Negative) Urine Ketones (Negative) Urine Blood (Negative) Urine Nitrite (Negative) Urine Bilirubin (Negative) Urine Urobilinogen (Negative) Ur Leukocyte Esterase (Negative) Urine WBC (Auto) (0-5) /hpf Urine RBC (Auto) (0-4) /hpf U Hyaline Cast (Auto) (0-5) /lpf U Epithel Cells (Auto) (0-5) /lpf Urine Bacteria (Auto) (Negative) Urine Osmolality (500-800) mOsm/kg Ethyl Alcohol mg/dL < 3.0 (0-3) mg/dl 12/26/19 12/26/19 Range/Units 18:52 18:52 WBC 18.23 H (4.8-10.8) K/uL RBC 5.34 (4.7-6.1) M/uL Hgb 17.8 (14.0-18.0) g/dL POC Hgb (14.0-18.0) g/dl Hct 51.9 (42-52) % POC Hct (42-52) % MCV 97.2 (80-100) fL MCH 33.3 (25-34) pg MCHC 34.3 (32-36) g/dL RDW Std Deviation 45.9 (36.4-46.3) fL RDW Coeff of Elda 12.8 (11.5-14.5) % Plt Count 206 (130-400) K/uL MPV 12.4 H (7.4-10.4) fL Immature Gran % (Auto) 0.3 % Neut % (Auto) 89.0 % Lymph % (Auto) 7.2 % Isabela % (Auto) 3.4 % Eos % (Auto) 0.0 % Baso % (Auto) 0.1 % Immature Gran # (Auto) 0.06 H (0.00-0.02) K/uL Neut # (Auto) 16.23 H (1.4-6.5) K/uL Lymph # (Auto) 1.31 (1.2-3.4) K/uL Isabel[place] # (Auto) 0.62 H (0.11-0.59) K/uL Eos # (Auto) 0.00 (0-0.5) K/uL Baso # (Auto) 0.01 (0-0.2) K/uL PT 10.3 (9.0-12.0) Seconds INR 1.0 (0.9-1.1) APTT 25.7 (21.0-31.0) Seconds PTT Ratio 0.9 VBG pH (7.36-7.41) VBG pCO2 (38-50) mmHg VBG pO2 mmHg VBG HCO3 mmol/L VBG O2 Saturation % VBG Base Excess mEq/L Barometric Pressure mm/Hg POC Sodium (135-144) mmol/L Sodium (136-145) mmol/L POC Potassium (3.3-5.0) mmol/L Potassium (3.5-5.1) mmol/L POC Chloride (101-112) mmol/L Chloride (98-107) mmol/L Carbon Dioxide (21-32) mmol/L POC Total CO2 (24-31) mmol/L Anion Gap (3-11) POC Anion Gap (16-25) mmol/L POC BUN (7-18) mg/dl BUN (7-18) mg/dl Creatinine (0.6-1.4) mg/dl POC Creatinine (0.6-1.3) mg/dl Est Cr Clr Drug Dosing ml/min Est GFR ( Amer) Est GFR (Non-Af Amer) BUN/Creatinine Ratio (10-20) Glucose (70-99) mg/dl POC Glucose (70-99) mg/dl POC Glucose (other) (70-99) mg/dl Estimat Average Glucose mg/dl Hemoglobin A1c (4.5-5.6) % Osmolality (280-300) mOsm/kg Lactate (0.4-2.0) mmol/L Calcium (8.5-10.1) mg/dl POC Ioniz Calcium Tahir (1.12-1.32) mmol/l Phosphorus (2.5-4.9) mg/dl Magnesium (1.8-2.4) mg/dl Total Bilirubin (0.2-1) mg/dl Direct Bilirubin (0-0.2) mg/dl AST (15-37) U/L ALT (12-78) U/L Alkaline Phosphatase (45-117) U/L Troponin I (0-0.045) ng/ml Total Protein (6.4-8.2) gm/dl Albumin (3.4-5.0) gm/dl Globulin (2.5-4.0) gm/dl Albumin/Globulin Ratio (0.9-2) Lipase (73-393) U/L Beta-Hydroxybutyric Acd (0.2-2.81) mg/dl Urine Color Urine Appearance (Clear) Urine pH (4.5-7.5) Ur Specific [place] (1.000-1.030) Urine Protein (Negative) Urine Glucose (UA) (Negative) Urine Ketones (Negative) Urine Blood (Negative) Urine Nitrite (Negative) Urine Bilirubin (Negative) Urine Urobilinogen (Negative) Ur Leukocyte Esterase (Negative) Urine WBC (Auto) (0-5) /hpf Urine RBC (Auto) (0-4) /hpf U Hyaline Cast (Auto) (0-5) /lpf U Epithel Cells (Auto) (0-5) /lpf Urine Bacteria (Auto) (Negative) Urine Osmolality (500-800) mOsm/kg Ethyl Alcohol mg/dL (0-3) mg/dl (1) Nausea & vomiting Vomiting Intractability: intractable Vomiting type: unspecified Qualified Code(s): R11.2 - Nausea with vomiting, unspecified
[2019-12-27] MEDS ORDERED: PANTOprazole 40 MG in SYRINGE 0 ML IV SCH (09:00)
[2019-12-27] MEDS ORDERED: GABAPENTIN 600 MG TAB PO SCH (09:00)
[2019-12-27] MEDS ORDERED: INSULIN GLARGINE SOLOSTAR 100 UNITS/ML 3 ML PEN SC SCH (09:00)
[2019-12-27] MEDS ORDERED: lamoTRIgine 25 MG TAB PO SCH (09:00)
[2019-12-27 11:00] LABS: Alanine Aminotransferase 118 U/L (12-78); Albumin Level 2.8 gm/dl (3.4-5.0); Alkaline Phosphatase 509 U/L (45-117); Aspartate Aminotransferase 34 U/L (15-37); Bilirubin,Total 0.3 mg/dl (0.2-1); Total Protein 5.8 gm/dl (6.4-8.2)
--- NOTE | 2019-12-27 11:36 | Anesthesiology Consultation ---
Date of Service December 27, 2019 The patient tested negative for Covid 19 today. Assessment & Plan (1) Encounter for pre-operative examination: Chart Review Chart Review: Acceptable Risk for Surgery (necessary procedure) and Patient NOT seen in Pre Admission Testing Consults Requested none History Surgery Operation Date: 12/27/19 16:55 Proposed Procedures p Esophagogastroduodenoscopy Dr. Jaky Starkey M.D. Height/Weight Height: 5 ft 9 in Weight: 53.5 kg Allergies Allergy/AdvReac Type Severity Reaction Status Date / Time phenytoin AdvReac Intermediate "IT MAKES Verified 12/26/19 21:47 ME CRAZY" Medications Home Medications Medication Instructions Recorded Confirmed Last Taken acetaminophen [Tylenol Extra 1,500 mg PO DAILY PRN 11/29/18 12/26/19 Unknown Strength] albuterol sulfate [ProAir HFA] 2 puff INHALATION QID PRN 11/29/18 12/26/19 Unknown aspirin [Aspir-81] 81 mg PO DAILY 11/29/18 12/26/19 11/29/18 06:30 atorvastatin [Lipitor] 40 mg PO DAILY 11/29/18 12/26/19 Unknown gabapentin [Neurontin] 600 mg PO TID 11/29/18 12/26/19 11/29/18 06:30 insulin NPH and regular human 14 unit SUBCUT BID 11/29/18 12/26/19 11/29/18 06:30 [Humulin 70/30 U-100 Insulin] lidocaine 1 applic TOPICAL BID PRN 11/29/18 12/26/19 Unknown metformin [Glucophage XR] 500 mg PO BID 11/29/18 12/26/19 11/29/18 06:30 pantoprazole 40 mg PO BID 11/29/18 11/29/18 11/29/18 06:30 buprenorphine-naloxone [Suboxone] 2 film SUBLINGUAL BID 12/26/19 12/26/19 Unknown lamotrigine [Lamictal] 50 mg PO DAILY 12/26/19 12/26/19 Unknown Active Medications Generic Name Dose Route Start Last Admin Trade Name Freq PRN Reason Stop Dose Admin Hydromorphone HCl 0.5 mg 12/27/19 00:14 12/27/19 09:57 Dilaudid IV 01/10/20 00:13 0.5 mg Q3H PRN Administration Pain Sodium Chloride 1,000 mls @ 125 mls/hr 12/27/19 00:14 12/27/19 09:52 Nss 1000ml IV 01/26/20 00:13 125 mls/hr .Q8H YOUSIF Administration Piperacillin Sod/Tazobactam 115 mls @ 28.75 mls/hr 12/27/19 03:00 12/27/19 08:29 Sod 3.375 gm/ Dextrose IV 01/03/20 02:59 Infused Q8H YOUSIF Infusion Protocol Insulin Aspart 0 units 12/27/19 02:30 12/27/19 06:07 Novolog Flexpen SC 01/26/20 02:29 1 units Q6 YOUSIF Administration Miscellaneous 1 ea 12/27/19 08:00 12/27/19 08:38 Order Awaiting Action N/A 01/26/20 07:59 Not Given QS YOUSIF Past Medical History Medical History Alcohol abuse (Acute) Anxiety Back pain Chronic pancreatitis Chronic sinusitis Diabetes (Chronic) poorly controlled Dyslipidemia Gastric outlet obstruction GERD (gastroesophageal reflux disease) Hepatitis C (Acute) Marijuana use Seizures Smoker Past Family History Family History (Updated 12/27/19 @ 11:39 by Jose Aguirre MD) Other Colorectal cancer Heart disease Past Surgical History Surgical History (Updated 12/27/19 @ 11:38 by Jose Aguirre MD) History of ERCP History of esophagogastroduodenoscopy (EGD) History of facial surgery Hx laparoscopic cholecystectomy Social History Smoking Status: Current every day smoker tobacco type: cigarettes Smoking cigarettes per day: 40 Do You Dip or Chew Tobacco: No Hx Alcohol Use: No Alcohol Intake Frequency Comment: reports its been over a year since he drank Physical Exam Vital Signs Last Vital Signs Temp 37.1 C 12/27/19 09:56 Pulse 48 L 12/27/19 09:56 Resp 16 12/27/19 09:56 BP 133/73 12/27/19 09:56 Pulse Ox 94 12/27/19 09:56 Testing Laboratory Results 12/27/19 03:53 12/27/19 03:53 PT 10.3 Seconds (9.0-12.0) 12/26/19 18:52 INR 1.0 (0.9-1.1) 12/26/19 18:52 APTT 25.7 Seconds (21.0-31.0) 12/26/19 18:52 Hemoglobin A1c 9.7 % (4.5-5.6) H 12/27/19 03:53 Urine Color Yellow 12/26/19 22:04 Urine Appearance Clear (Clear) 12/26/19 22:04 Urine pH 5.0 (4.5-7.5) 12/26/19 22:04 Ur Specific [place] > 1.045 (1.000-1.030) H 12/26/19 22:04 Urine Protein Negative (Negative) 12/26/19 22:04 Urine Glucose (UA) 3+ (Negative) H 12/26/19 22:04 Urine Ketones 3+ (Negative) H 12/26/19 22:04 Urine Nitrite Negative (Negative) 12/26/19 22:04 Ur Leukocyte Esterase Negative (Negative) 12/26/19 22:04 Urine WBC (Auto) 1-5 /hpf (0-5) 12/26/19 22:04 Urine RBC (Auto) 0-4 /hpf (0-4) 12/26/19 22:04 U Hyaline Cast (Auto) 0 /lpf (0-5) 12/26/19 22:04 U Epithel Cells (Auto) 5-10 /lpf (0-5) H 12/26/19 22:04 Urine Bacteria (Auto) Negative (Negative) 12/26/19 22:04 12/27/19 12/27/19 06:05 02:35 POC Glucose 166 H 254 H Electrocardiogram Date: 12/26/19 Findings: + SB @ (57) Chest X-Ray Date: 12/26/19 SINGLE VIEW CHEST CLINICAL HISTORY: Atypical chest pain. FINDINGS: An AP, portable, upright chest radiograph is compared to study dated 11/29/2018. The cardiomediastinal silhouette is unremarkable. The lungs and pleural spaces are clear. No pneumothorax is seen. There is chronic posttraumatic deformity of the right clavicle. IMPRESSION: No active disease in the chest. ACT 112: Negative or not required by law. Electronically signed by: Navid Da Silva M.D. 12/26/2019 7:06 PM Dictated: 12/26/191905 Transcribed: 12/26/191905 Other Testing CT SCAN OF THE ABDOMEN AND PELVIS WITH IV CONTRAST CLINICAL HISTORY: Generalized abdominal pain. Nausea and vomiting. COMPARISON STUDY: Abdominal CT dated 05/19/2016. Abdominal MRI dated 03/16/2018. TECHNIQUE: Following the IV administration of 94 cc of Optiray 320, CT scan of the abdomen and pelvis is performed from the lung bases to the proximal femora. Images are reviewed in the axial, sagittal, and coronal planes. IV contrast was administered without complication. A dose lowering technique was utilized adhering to the principles of ALARA. CT DOSE: 268.67 mGy.cm FINDINGS: Lung bases: The heart is normal in size and without pericardial effusion. The lung bases are clear. Liver: The contrast-enhanced liver is normal in size, contour, and attenuation. There is mild intrahepatic biliary ductal dilatation. The hepatic veins and portal veins are patent. Gallbladder: Surgically absent noting clips in the gallbladder fossa. Spleen: Normal in size and attenuation. Pancreas: The pancreas is atrophic. The pancreatic head appears heterogeneous. There are coarse calcifications in the pancreatic head and scattered throughout the pancreatic parenchyma suggesting chronic pancreatitis. Small cystic foci are again suggested in the pancreatic head. Prominence of the pancreatic duct is similar to previous unlikely to parenchymal atrophy. Adrenal glands: Unremarkable. Kidneys: The contrast enhanced kidneys are normal in size and without hydronephrosis. The kidneys enhance symmetrically. Small complex cysts are unchanged from previous. Abdominal vasculature: The abdominal aorta is normal in course and caliber noting mild to moderate atherosclerotic calcification. Stomach and bowel: There is a small hiatal hernia. The stomach is distended and fluid-filled. The gastric mucosa appears hyperemic, and there is mild mucosal edema which greatest involving the distal esophagus and proximal duodenum. There is marked narrowing of the proximal duodenum at the level of the pancreatic head. This is best seen on image #[id number]., This likely causes obstruction. There is moderate colonic fecal retention. No distal small bowel loops and colon are normal in caliber. No pneumatosis intestinalis or portal venous gas is seen. The appendix is not identified and reported surgically absent. Peritoneum: There is no intraperitoneal free air or abdominal ascites. Lymphadenopathy: None. Pelvic viscera: The prostate gland is mildly enlarged and heterogeneous. The bladder is distended but grossly unremarkable. Skeletal structures: No lytic or blastic lesions are seen. IMPRESSION: 1. The stomach is markedly distended and fluid-filled to the level of the duodenum at the pancreatic head. This likely represents obstruction. 2. The gastric mucosa is hyperemic, with mucosal edema involving predominantly the distal esophagus and proximal duodenum. Correlate clinically for evidence of superimposed gastroesophagitis/duodenitis. 3. There is heterogeneity of the pancreatic head with evidence of chronic pancreatitis. 4. As noted above the level of duodenal obstruction is at the level of the pancreatic head. This could be potentially be related to stricture or possibly obstructing mass lesion. GI consultation is advised. Consider endoscopy for further assessment. 5. No intraperitoneal free air is seen. There is no pneumatosis intestinalis or portal venous gas. ACT 112: Negative or not required by law. Electronically signed by: Navid Da Silva M.D. 12/26/2019 8:32 PM Dictated: 12/26/192013 Transcribed: 12/26/192013
[2019-12-27 11:38] LABS: Bilirubin Direct < 0.1 mg/dl (0-0.2)
[2019-12-27] MEDS ORDERED: LIDOCAINE HCL 2% 2 ML VIAL/AMP(20MG/ML) INFIL ONE (11:40)
[2019-12-27] MEDS ORDERED: PROPOFOL IV EMULSION 10 MG/ML 20 ML VIAL IV ONE (11:40)
[2019-12-27] MEDS ORDERED: fentaNYL citrate 100 MCG/2 ML VIAL ONE (11:41)
[2019-12-27] MEDS ORDERED: MIDAZOLAM HCL 1 MG/ML 2ML VIAL ONE (11:50)
--- NOTE | 2019-12-27 11:51 | XRay Report ---
XR KUB/Abdomen 1 view CLINICAL HISTORY: 54 years-old Male presenting with assess for gastric dist, CT concerning for GOO. TECHNIQUE: Single supine view of the abdomen was obtained. COMPARISON: None. FINDINGS: Cholecystectomy clips noted. Additional surgical clip in the left mid abdomen. No abnormal distention of the stomach. Mild stool burden throughout the colon. Nonobstructive bowel gas pattern. No gross p neumoperitoneum. Allowing for bowel gas and stool, no calcifications to suggest nephrolithiasis. Calcification in the region of the pancreatic head and along the pancreatic body suggesting history of chronic pancreatiti s. Osseous structures normal. Lung bases clear. IMPRESSION: 1. No apparent distention of the stomach. This could potentially be due to a fluid-filled stomach or a nondistended stomach. 2. No convincing evidence of bowel obstruction. 3. Findings suggest chronic pancreatitis. ACT 112: Negative or not required by law. Electronically signed by: Lazaro Simmons M.D. 12/27/2019 11:50 AM
[2019-12-27] MEDS ORDERED: ONDANSETRON INJ 2 MG/ML 2 ML VIAL ONE (12:15)
--- NOTE | 2019-12-27 12:28 | GI REPORT ---
Patient Name: Elvira Zimmerman Procedure Date: 12/27/2019 12:03 PM Date of : 1965 Admit Type: Inpatient Age: 54 Gender: Male Attending MD: Nat Starkey M.d. Procedure: Upper GI endoscopy Providers: Nat Starkey M.d. Referring MD: Referred Self Indications: Abnormal CT of the GI tract Medicines: Propofol per Anesthesia, Lidocaine Complications: No immediate complications. Estimated Blood Loss: Estimated blood loss: none. Procedure: Pre-Anesthesia Assessment: - Patient identification and proposed procedure were verified prior to the procedure by the physician, the nurse and the anesthesiologist. The procedure was verified in the pre-procedure area. - Prior to the procedure, a History and Physical was performed, and patient medications, allergies and sensitivities were reviewed. The patient's tolerance of previous anesthesia was reviewed. - The risks and benefits of the procedure and the sedation options and risks were discussed with the patient. All questions were answered and informed consent was obtained. - ASA Grade Assessment: III - A patient with severe systemic disease. After obtaining informed consent, the endoscope was passed under direct vision. Throughout the procedure, the patient's blood pressure, pulse, and oxygen saturations were monitored continuously. The Endoscope was introduced through the mouth and advanced to the second part of duodenum. The upper GI endoscopy was accomplished without difficulty. The patient tolerated the procedure well. Findings: The examined esophagus appeared normal to 30 cm LA Grade C-D (one or more mucosal breaks continuous between tops of 2 or more mucosal folds, less than 75% circumference) monilial esophagitis with mild contact bleeding was found 30 to 40 cm from the incisors. Biopsies were taken with a cold forceps for histology. The pathology specimen was placed into Bottle B. Verification of patient identification for the specimen was done by the physician and nurse using the patient's name and medical record number. The examined stomach appeared normal - minimal fluid was noted upon entry into stomach. Biopsies were taken with a cold forceps for Helicobacter pylori testing. The pathology specimen was placed into Bottle A. A benign-appearing, intrinsic mild stenosis was found at the pylorus. This was traversed with the initial endoscopy. A TTS dilator was passed through the scope and an empiric dilation with a 12-13.5-15 mm pyloric balloon dilator was performed to 13.5 mm. The dilation site was examined following endoscope reinsertion and showed improvement in luminal narrowing and a more patent pylorus. Localized mild inflammation characterized by erythema, friability, granularity and mucus was found in the duodenal bulb. No visible ulcer was noted. The second portion of the duodenum was normal though the c curve turn was slightly tight to make the maneuver. Impression: - Normal esophagus. - LA Grade C esophagitis- D monilial esophagitis - about 10 cm in diameter. Biopsied. - Normal stomach. Biopsied. - A very mild gastric stenosis was found at the pylorus. Dilated. - Mild duodenitis. - Normal second portion of the duodenum. Recommendation: - Await pathology results. - IV PPI for 24 hoursthen transition to 40 mg oral BID. - Avoid NSAID's, ethanol. - Likely outpatient EUS. - Assess response to dilation of pylorus. Nat Starkey M.D. Nat Starkey M.d. 12/27/2019 12:27:42 PM This report has been signed electronically. Note Initiated On: 12/27/2019 12:03 PM Number of Addenda: 0 I attest to the content of the Intraoperative Record and orders documented therein, exceptions below {[id number]}
--- NOTE | 2019-12-27 12:49 | Anesthesiology Progress Note ---
Date of Service December 27, 2019 Anesthesia Post Procedure Vital Signs Vital Signs: Temp Pulse Pulse Pulse Resp BP BP 12/27/19 12:32 74 16 98/73 L 12/27/19 12:17 71 11 L 102/62 12/27/19 11:52 37.1 C 60 18 121/70 12/27/19 09:56 37.1 C 48 L 16 133/73 12/27/19 07:18 37.0 C 67 16 12/27/19 00:05 38.0 C H 74 16 12/26/19 23:49 70 18 132/92 12/26/19 23:00 65 12 118/73 12/26/19 22:30 86 13 12/26/19 22:00 83 15 12/26/19 21:30 82 22 146/86 H 12/26/19 21:01 76 17 12/26/19 21:00 75 18 121/82 12/26/19 20:30 83 17 155/92 H 12/26/19 20:00 77 14 142/83 H 12/26/19 19:31 74 19 12/26/19 19:30 87 13 123/71 12/26/19 19:01 69 18 12/26/19 19:00 83 18 126/75 12/26/19 18:41 36.8 C 74 18 145/95 H 12/26/19 18:31 73 17 145/95 H 12/26/19 18:30 75 21 12/26/19 18:25 64 12 BP Pulse Ox 12/27/19 12:32 98 12/27/19 12:17 100 12/27/19 11:52 97 12/27/19 09:56 94 12/27/19 07:18 104/54 L 91 12/27/19 00:05 135/72 93 12/26/19 23:49 92 12/26/19 23:00 92 12/26/19 22:30 12/26/19 22:00 93 12/26/19 21:30 12/26/19 21:01 12/26/19 21:00 12/26/19 20:30 94 12/26/19 20:00 95 12/26/19 19:31 91 12/26/19 19:30 12/26/19 19:01 91 12/26/19 19:00 89 L 12/26/19 18:41 93 12/26/19 18:31 93 12/26/19 18:30 94 12/26/19 18:25 Pain Intensity Abdomen: Pain Intensity: 2 Transfer of Care Handoff Completed per policy Notes Mental Status: alert / awake / arousable Patient Amnestic to Procedure: Yes Nausea / Vomiting: adequately controlled Pain: adequately controlled Airway Patency, RR, SpO2: stable & adequate BP & HR: stable & adequate Hydration State: stable & adequate Anesthetic Complications: no major complications apparent and Pt Satisfied with anesthetic care
--- NOTE | 2019-12-27 16:04 | Electrocardiogram Report ---
Test Reason : Blood Pressure : / mmHG Vent. Rate : 057 BPM Atrial Rate : 057 BPM P-R Int : 140 ms QRS Dur : 086 ms QT Int : 440 ms P-R-T Axes : 069 081 071 degrees QTc Int : 428 ms Sinus bradycardia Otherwise normal ECG When compared with ECG of 29-NOV-2018 15:15, No significant change was found Confirmed by Hebert Bentley ([id number]) on 12/27/2019 4:04:17 PM Referred By: REFERRED SELF Confirmed By:Collin Bentley
--- NOTE | 2019-12-27 16:05 | Hospitalist Progress Note ---
Date of Service December 27, 2019 Assessment & Plan (1) Abdominal pain: (2) Gastric outlet obstruction: 54-year-old male with history of alcoholic pancreatitis, chronic, diabetes type 2, dyslipidemia, smoker, hep C, Epilepsy, back pain, generalized anxiety disorder, coming in with abdominal pain . 1. Abdominal pain, secondary to gastric pyloric stenosis, esophagitis and duodenitis, questionable pancreatic mass of the head. --Status post EGD, revealing mild gastric pylorus stenosis, status post dilation --Continue IV NSS, n.p.o. status, pain control, --Appreciate GI service recommendations Gastroesophagitis/duodenitis. On ct scan. --Status post EGD: Mild duodenitis Continue IV Protonix, then transition to 40 mg p.o. twice daily Possible pancreatic mass -- Will need outpatient endoscopic ultrasound Positive for monilial esophagitis, biopsy pending 2, Fever --Leukocytosis --Unclear source of infection at this point --COVID-19 negative --Blood cultures pending --Continue IV Zosyn Follow cultures, monitor 3. Diabetes --Metformin, hold for now --On insulin Lantus, and sliding scale 4. Hyponatremia. --Sodium improved from 1 29-1 35 Continue NSS 5. Esophagitis, duodenitis --#1 6. Alcoholism. The patient says quit 1 year ago.Will monitor. 7. Elevated LFTs. --Monitor 8. History of epilepsy on Lamictal and gabapentin. 9. Chronic pain, on Suboxone. We will use gentle narcotics if needed. 10. Hyperlipidemia: --Hold statin for now given GI symptoms 11. Hepatitis C, not treated. Needs followup. 12. Tobacco abuse. Needs counseling. 13. Deep venous thrombosis prophylaxis, sequential compression devices. --Avoid anticoagulation in light of esophagitis, duodenitis Disposition Anticipate to discharge home when medically stable Admission and Anticipated Discharge Date Admission Date: December 26, 2019 Subjective Follow-up for abdominal pain, gastric outlet obstruction Status post EGD with dilation of gastric lower stenosis Seen in his room, sleeping but easily awakened, drifts back to sleep easily Denies abdominal pain, states he feels fine, states he just wants to rest Denies other symptoms Review of Systems Review of Systems: All systems reviewed & are unremarkable except as noted in HPI & below Physical Exam Physical Exam: General-sleeping but easily awakened, not in distress, speaks in sentences with no effort or accessory muscle use Eyes- anicteric Neck- no JVD Lungs- clear breath sounds bilaterally, no rales/wheezes Heart- normal rate, regular rhythm; no murmurs Abdomen- normal bowel sounds, nondistended, soft, mild epigastric tenderness Extremities- no pretibial edema, no calf tenderness Neuro- alert, oriented x 3; no gross focal neurologic deficits Skin- warm & dry Results & Data Results & Data ([facility]) Vital Signs (Past 12 Hours) Vital Signs Temp Pulse Resp BP BP Pulse Ox 12/27/19 15:21 36.7 C 73 16 114/64 93 12/27/19 12:49 81 16 91/70 L 96 12/27/19 12:32 74 16 98/73 L 98 12/27/19 12:17 71 11 L 102/62 100 12/27/19 11:52 37.1 C 60 18 121/70 97 12/27/19 09:56 37.1 C 48 L 16 133/73 94 12/27/19 07:18 37.0 C 67 16 104/54 L 91 Laboratory Results Laboratory Results - last 24 hr 12/26/19 12/26/19 12/26/19 18:52 18:52 18:52 WBC 18.23 H RBC 5.34 Hgb 17.8 POC Hgb Hct 51.9 POC Hct MCV 97.2 MCH 33.3 MCHC 34.3 RDW Std Deviation 45.9 RDW Coeff of Elda 12.8 Plt Count 206 MPV 12.4 H Immature Gran % (Auto) 0.3 Neut % (Auto) 89.0 Lymph % (Auto) 7.2 Henry % (Auto) 3.4 Eos % (Auto) 0.0 Baso % (Auto) 0.1 Immature Gran # (Auto) 0.06 H Neut # (Auto) 16.23 H Lymph # (Auto) 1.31 Henry # (Auto) 0.62 H Eos # (Auto) 0.00 Baso # (Auto) 0.01 PT 10.3 INR 1.0 APTT 25.7 PTT Ratio 0.9 VBG pH VBG pCO2 VBG pO2 VBG HCO3 VBG O2 Saturation VBG Base Excess Barometric Pressure POC Sodium Sodium 129 L POC Potassium Potassium 3.8 POC Chloride Chloride 86 L Carbon Dioxide 30 POC Total CO2 Anion Gap 17.0 H POC Anion Gap POC BUN BUN 2 L Creatinine 0.98 POC Creatinine Est Cr Clr Drug Dosing 67.1 Est GFR ( Amer) 99.5 Est GFR (Non-Af Amer) 85.8 BUN/Creatinine Ratio 1.6 L Glucose 325 H* POC Glucose POC Glucose (other) Estimat Average Glucose Hemoglobin A1c Osmolality Lactate Calcium 9.2 POC Ioniz Calcium Tahir Phosphorus 3.8 Magnesium 2.2 Total Bilirubin 0.5 Direct Bilirubin 0.2 AST 60 H ALT 209 H Alkaline Phosphatase 831 H Troponin I < 0.015 Total Protein 8.7 H Albumin 3.9 Globulin 4.8 H Albumin/Globulin Ratio 0.8 L Lipase 25 L Beta-Hydroxybutyric Acd Urine Color Urine Appearance Urine pH Ur Specific Almond Urine Protein Urine Glucose (UA) Urine Ketones Urine Blood Urine Nitrite Urine Bilirubin Urine Urobilinogen Ur Leukocyte Esterase Urine WBC (Auto) Urine RBC (Auto) U Hyaline Cast (Auto) U Epithel Cells (Auto) Urine Bacteria (Auto) Urine Osmolality Ethyl Alcohol mg/dL COVID-19 PCR 12/26/19 12/26/19 12/26/19 18:52 18:52 18:52 WBC RBC Hgb POC Hgb Hct POC Hct MCV MCH MCHC RDW Std Deviation RDW Coeff of Elda Plt Count MPV Immature Gran % (Auto) Neut % (Auto) Lymph % (Auto) Henry % (Auto) Eos % (Auto) Baso % (Auto) Immature Gran # (Auto) Neut # (Auto) Lymph # (Auto) Henry # (Auto) Eos # (Auto) Baso # (Auto) PT INR APTT PTT Ratio VBG pH 7.37 VBG pCO2 63 H VBG pO2 21 VBG HCO3 35 VBG O2 Saturation < 60.0 VBG Base Excess 7.0 Barometric Pressure 739.5 POC Sodium Sodium POC Potassium Potassium POC Chloride Chloride Carbon Dioxide POC Total CO2 Anion Gap POC Anion Gap POC BUN BUN Creatinine POC Creatinine Est Cr Clr Drug Dosing Est GFR ( Amer) Est GFR (Non-Af Amer) BUN/Creatinine Ratio Glucose POC Glucose POC Glucose (other) Estimat Average Glucose Hemoglobin A1c Osmolality Lactate Calcium POC Ioniz Calcium Tahir Phosphorus Magnesium Total Bilirubin Direct Bilirubin AST ALT Alkaline Phosphatase Troponin I Total Protein Albumin Globulin Albumin/Globulin Ratio Lipase Beta-Hydroxybutyric Acd 21.81 H Urine Color Urine Appearance Urine pH Ur Specific Almond Urine Protein Urine Glucose (UA) Urine Ketones Urine Blood Urine Nitrite Urine Bilirubin Urine Urobilinogen Ur Leukocyte Esterase Urine WBC (Auto) Urine RBC (Auto) U Hyaline Cast (Auto) U Epithel Cells (Auto) Urine Bacteria (Auto) Urine Osmolality Ethyl Alcohol mg/dL < 3.0 COVID-19 PCR 12/26/19 12/26/19 12/26/19 18:52 19:05 22:04 WBC RBC Hgb POC Hgb 19.4 H Hct POC Hct 57 H MCV MCH MCHC RDW Std Deviation RDW Coeff of Elda Plt Count MPV Immature Gran % (Auto) Neut % (Auto) Lymph % (Auto) Henry % (Auto) Eos % (Auto) Baso % (Auto) Immature Gran # (Auto) Neut # (Auto) Lymph # (Auto) Henry # (Auto) Eos # (Auto) Baso # (Auto) PT INR APTT PTT Ratio VBG pH VBG pCO2 VBG pO2 VBG HCO3 VBG O2 Saturation VBG Base Excess Barometric Pressure POC Sodium 128 L Sodium POC Potassium 3.7 Potassium POC Chloride 85 L Chloride Carbon Dioxide POC Total CO2 31 Anion Gap POC Anion Gap 17.0 POC BUN 29 H BUN Creatinine POC Creatinine 0.7 Est Cr Clr Drug Dosing Est GFR ( Amer) Est GFR (Non-Af Amer) BUN/Creatinine Ratio Glucose POC Glucose POC Glucose (other) 327 H Estimat Average Glucose Hemoglobin A1c Osmolality 299 Lactate Calcium POC Ioniz Calcium Tahir 0.97 L Phosphorus Magnesium Total Bilirubin Direct Bilirubin AST ALT Alkaline Phosphatase Troponin I Total Protein Albumin Globulin Albumin/Globulin Ratio Lipase Beta-Hydroxybutyric Acd Urine Color Yellow Urine Appearance Clear Urine pH 5.0 Ur Specific Almond > 1.045 H Urine Protein Negative Urine Glucose (UA) 3+ H Urine Ketones 3+ H Urine Blood Trace H Urine Nitrite Negative Urine Bilirubin Negative Urine Urobilinogen Negative Ur Leukocyte Esterase Negative Urine WBC (Auto) 1-5 Urine RBC (Auto) 0-4 U Hyaline Cast (Auto) 0 U Epithel Cells (Auto) 5-10 H Urine Bacteria (Auto) Negative Urine Osmolality Ethyl Alcohol mg/dL COVID-19 PCR 12/26/19 12/26/19 12/26/19 22:04 22:29 22:36 WBC RBC Hgb POC Hgb Hct POC Hct MCV MCH MCHC RDW Std Deviation RDW Coeff of Elda Plt Count MPV Immature Gran % (Auto) Neut % (Auto) Lymph % (Auto) Henry % (Auto) Eos % (Auto) Baso % (Auto) Immature Gran # (Auto) Neut # (Auto) Lymph # (Auto) Henry # (Auto) Eos # (Auto) Baso # (Auto) PT INR APTT PTT Ratio VBG pH VBG pCO2 VBG pO2 VBG HCO3 VBG O2 Saturation VBG Base Excess Barometric Pressure POC Sodium Sodium POC Potassium Potassium POC Chloride Chloride Carbon Dioxide POC Total CO2 Anion Gap POC Anion Gap POC BUN BUN Creatinine POC Creatinine Est Cr Clr Drug Dosing Est GFR ( Amer) Est GFR (Non-Af Amer) BUN/Creatinine Ratio Glucose POC Glucose 276 H POC Glucose (other) Estimat Average Glucose Hemoglobin A1c Osmolality Lactate 2.4 H* Calcium POC Ioniz Calcium Tahir Phosphorus Magnesium Total Bilirubin Direct Bilirubin AST ALT Alkaline Phosphatase Troponin I Total Protein Albumin Globulin Albumin/Globulin Ratio Lipase Beta-Hydroxybutyric Acd Urine Color Urine Appearance Urine pH Ur Specific Almond Urine Protein Urine Glucose (UA) Urine Ketones Urine Blood Urine Nitrite Urine Bilirubin Urine Urobilinogen Ur Leukocyte Esterase Urine WBC (Auto) Urine RBC (Auto) U Hyaline Cast (Auto) U Epithel Cells (Auto) Urine Bacteria (Auto) Urine Osmolality 690 Ethyl Alcohol mg/dL COVID-19 PCR 12/26/19 12/27/19 12/27/19 22:42 00:36 02:35 WBC RBC Hgb POC Hgb 14.6 Hct POC Hct 43 MCV MCH MCHC RDW Std Deviation RDW Coeff of Elda Plt Count MPV Immature Gran % (Auto) Neut % (Auto) Lymph % (Auto) Henry % (Auto) Eos % (Auto) Baso % (Auto) Immature Gran # (Auto) Neut # (Auto) Lymph # (Auto) Henry # (Auto) Eos # (Auto) Baso # (Auto) PT INR APTT PTT Ratio VBG pH VBG pCO2 VBG pO2 VBG HCO3 VBG O2 Saturation VBG Base Excess Barometric Pressure POC Sodium 129 L Sodium POC Potassium 4.5 Potassium POC Chloride 92 L Chloride Carbon Dioxide POC Total CO2 27 Anion Gap POC Anion Gap 15.0 L POC BUN 25 H BUN Creatinine POC Creatinine 0.6 Est Cr Clr Drug Dosing Est GFR ( Amer) Est GFR (Non-Af Amer) BUN/Creatinine Ratio Glucose POC Glucose 254 H POC Glucose (other) 287 H Estimat Average Glucose Hemoglobin A1c Osmolality Lactate 1.6 Calcium POC Ioniz Calcium Tahir 1.00 L Phosphorus Magnesium Total Bilirubin Direct Bilirubin AST ALT Alkaline Phosphatase Troponin I Total Protein Albumin Globulin Albumin/Globulin Ratio Lipase Beta-Hydroxybutyric Acd Urine Color Urine Appearance Urine pH Ur Specific Almond Urine Protein Urine Glucose (UA) Urine Ketones Urine Blood Urine Nitrite Urine Bilirubin Urine Urobilinogen Ur Leukocyte Esterase Urine WBC (Auto) Urine RBC (Auto) U Hyaline Cast (Auto) U Epithel Cells (Auto) Urine Bacteria (Auto) Urine Osmolality Ethyl Alcohol mg/dL COVID-19 PCR 12/27/19 12/27/19 12/27/19 03:53 03:53 03:53 WBC 16.50 H RBC 4.08 L Hgb 13.2 L D POC Hgb Hct 39.3 L POC Hct MCV 96.3 MCH 32.4 MCHC 33.6 RDW Std Deviation 44.9 RDW Coeff of Elda 12.8 Plt Count 162 MPV 11.8 H Immature Gran % (Auto) 0.2 Neut % (Auto) 75.5 Lymph % (Auto) 16.8 Henry % (Auto) 7.3 Eos % (Auto) 0.1 Baso % (Auto) 0.1 Immature Gran # (Auto) 0.04 H Neut # (Auto) 12.45 H Lymph # (Auto) 2.78 Henry # (Auto) 1.20 H Eos # (Auto) 0.01 Baso # (Auto) 0.02 PT INR APTT PTT Ratio VBG pH VBG pCO2 VBG pO2 VBG HCO3 VBG O2 Saturation VBG Base Excess Barometric Pressure POC Sodium Sodium 135 L POC Potassium Potassium 4.4 D POC Chloride Chloride 104 Carbon Dioxide 26 POC Total CO2 Anion Gap 5.0 POC Anion Gap POC BUN BUN 18 D Creatinine 0.69 POC Creatinine Est Cr Clr Drug Dosing 90.5 Est GFR ( Amer) 123.0 Est GFR (Non-Af Amer) 106.1 BUN/Creatinine Ratio 25.6 H Glucose 201 H POC Glucose POC Glucose (other) Estimat Average Glucose Hemoglobin A1c Osmolality Lactate 1.4 Calcium 7.2 L D POC Ioniz Calcium Tahir Phosphorus Magnesium 2.0 Total Bilirubin Direct Bilirubin AST ALT Alkaline Phosphatase Troponin I Total Protein Albumin Globulin Albumin/Globulin Ratio Lipase Beta-Hydroxybutyric Acd Urine Color Urine Appearance Urine pH Ur Specific Almond Urine Protein Urine Glucose (UA) Urine Ketones Urine Blood Urine Nitrite Urine Bilirubin Urine Urobilinogen Ur Leukocyte Esterase Urine WBC (Auto) Urine RBC (Auto) U Hyaline Cast (Auto) U Epithel Cells (Auto) Urine Bacteria (Auto) Urine Osmolality Ethyl Alcohol mg/dL COVID-19 PCR 12/27/19 12/27/19 12/27/19 03:53 03:53 06:05 WBC RBC Hgb POC Hgb Hct POC Hct MCV MCH MCHC RDW Std Deviation RDW Coeff of Elda Plt Count MPV Immature Gran % (Auto) Neut % (Auto) Lymph % (Auto) Henry % (Auto) Eos % (Auto) Baso % (Auto) Immature Gran # (Auto) Neut # (Auto) Lymph # (Auto) Henry # (Auto) Eos # (Auto) Baso # (Auto) PT INR APTT PTT Ratio VBG pH VBG pCO2 VBG pO2 VBG HCO3 VBG O2 Saturation VBG Base Excess Barometric Pressure POC Sodium Sodium POC Potassium Potassium POC Chloride Chloride Carbon Dioxide POC Total CO2 Anion Gap POC Anion Gap POC BUN BUN Creatinine POC Creatinine Est Cr Clr Drug Dosing Est GFR ( Amer) Est GFR (Non-Af Amer) BUN/Creatinine Ratio Glucose POC Glucose 166 H POC Glucose (other) Estimat Average Glucose 232 Hemoglobin A1c 9.7 H Osmolality Lactate Calcium POC Ioniz Calcium Tahir Phosphorus Magnesium Total Bilirubin 0.3 Direct Bilirubin < 0.1 D AST 34 ALT 118 H Alkaline Phosphatase 509 H Troponin I Total Protein 5.8 L D Albumin 2.8 L Globulin Albumin/Globulin Ratio Lipase Beta-Hydroxybutyric Acd Urine Color Urine Appearance Urine pH Ur Specific Almond Urine Protein Urine Glucose (UA) Urine Ketones Urine Blood Urine Nitrite Urine Bilirubin Urine Urobilinogen Ur Leukocyte Esterase Urine WBC (Auto) Urine RBC (Auto) U Hyaline Cast (Auto) U Epithel Cells (Auto) Urine Bacteria (Auto) Urine Osmolality Ethyl Alcohol mg/dL COVID-19 PCR 12/27/19 12/27/19 08:50 13:48 WBC RBC Hgb POC Hgb Hct POC Hct MCV MCH MCHC RDW Std Deviation RDW Coeff of Elda Plt Count MPV Immature Gran % (Auto) Neut % (Auto) Lymph % (Auto) Henry % (Auto) Eos % (Auto) Baso % (Auto) Immature Gran # (Auto) Neut # (Auto) Lymph # (Auto) Henry # (Auto) Eos # (Auto) Baso # (Auto) PT INR APTT PTT Ratio VBG pH VBG pCO2 VBG pO2 VBG HCO3 VBG O2 Saturation VBG Base Excess Barometric Pressure POC Sodium Sodium POC Potassium Potassium POC Chloride Chloride Carbon Dioxide POC Total CO2 Anion Gap POC Anion Gap POC BUN BUN Creatinine POC Creatinine Est Cr Clr Drug Dosing Est GFR ( Amer) Est GFR (Non-Af Amer) BUN/Creatinine Ratio Glucose POC Glucose 154 H POC Glucose (other) Estimat Average Glucose Hemoglobin A1c Osmolality Lactate Calcium POC Ioniz Calcium Tahir Phosphorus Magnesium Total Bilirubin Direct Bilirubin AST ALT Alkaline Phosphatase Troponin I Total Protein Albumin Globulin Albumin/Globulin Ratio Lipase Beta-Hydroxybutyric Acd Urine Color Urine Appearance Urine pH Ur Specific Almond Urine Protein Urine Glucose (UA) Urine Ketones Urine Blood Urine Nitrite Urine Bilirubin Urine Urobilinogen Ur Leukocyte Esterase Urine WBC (Auto) Urine RBC (Auto) U Hyaline Cast (Auto) U Epithel Cells (Auto) Urine Bacteria (Auto) Urine Osmolality Ethyl Alcohol mg/dL COVID-19 PCR NEGATIVE
[2019-12-27] MEDS: GABAPENTIN 600 MG TAB PO SCH ×2 (16:41→21:11)
[2019-12-27] MEDS: PANTOprazole 40 MG in SYRINGE 0 ML IV SCH (21:11)
[2019-12-28] MEDS: SODIUM CHLORIDE 0.9% 1000ML 1,000 ML IV SCH ×3 (02:33→20:43)
[2019-12-28] MEDS: PIPERACILLIN/TAZOBACTAM 3.375 GM in DEXTROSE 5% 100 ML IV SCH ×3 (03:55→19:10)
[2019-12-28] MEDS: HYDROmorphone INJ 0.5 MG/0.5 ML SYR IV PRN ×5 (04:27→22:30)
[2019-12-28] MEDS: INSULIN ASPART 100 UNITS/ML 3 ML PEN SC SCH ×4 (06:17→21:12)
[2019-12-28] MEDS: ONDANSETRON INJ 2 MG/ML 2 ML VIAL IV PRN (07:49)
[2019-12-28] MEDS: PANTOprazole 40 MG in SYRINGE 0 ML IV SCH (07:54)
[2019-12-28] MEDS: lamoTRIgine 25 MG TAB PO SCH (07:55)
[2019-12-28] MEDS: GABAPENTIN 600 MG TAB PO SCH ×3 (07:55→20:43)
[2019-12-28] MEDS ORDERED: INSULIN GLARGINE SOLOSTAR 100 UNITS/ML 3 ML PEN SC SCH (08:00)
--- NOTE | 2019-12-28 09:12 | Gastroenterology Progress Note ---
Date of Service December 28, 2019 Assessment & Plan (1) Abdominal pain: 54 year old male w/ history of T2DM, chronic pancreatitis w/ pancreatic insufficiency, dyslipidemia, HCV treatment naive, GERD presenting with acute on chronic abd pain associated with a 30 lb weight loss in 1 month CTAP concerning for GOO, noted LFT elevation w/ ALKP >800 Continue IV PPI BID today Then PO PPI BID Await pathology results. Avoid NSAID's, Outpatient EUS. Assess response to dilation of pylorus. Strict ETOH cessation, tobacco cessation Should have dedicated liver, pancreas imaging and AFP after acute issues addressed Patient wants to go home, clear liquid diet -> advance to low residue as tolerated Thank you for allowing us to participate in the care of this patient. Please call with any acute changes, questions or concerns. Please see addendum below with additional recommendation from my supervising physician. (2) Nausea & vomiting: Admission and Anticipated Discharge Date Admission Date: December 26, 2019 Supervising Physician Co-Signing Physician Notes I saw and evaluated the patient. He underwent an upper endoscopy with Dr. Starkey yesterday and did not appear to have evidence of gastric outlet obstruction. Perhaps the patient has gastroparesis as result of longstanding diabetes. Recommendations MRCP ordered Fractionation of alkaline phosphatase or GGT Outpatient endoscopic ultrasound if MRCP is negative After MRI may advance to a low residue diet Subjective Pt was seen and evaluated, chart reviewed S/P EGD Notes since procedure he feels pain is slightly improved, less frequent and less severe when occurs No nausea, vomiting since EGD No diarrhea/constipation Denies black/bloody stools EGD: - Normal esophagus.LA Grade C esophagitis- D monilial esophagitis - about 10 cm in diameter. Biopsied.Normal stomach. Biopsied. A very mild gastric stenosis was found at the pylorus. Dilated. Mild duodenitis. Normal second portion of the duodenum. Review of Systems Constitutional: no fever and no chills Respiratory: no cough and no dyspnea Cardiovascular: no chest pain Gastrointestinal: + abdominal pain; no coffee ground emesis, no hematemesis, no blood in stools and no melena Physical Exam Constitutional: + not well developed, + not well nourished and no acute distress Neck: trachea midline Respiratory: normal respiratory effort Gastrointestinal (Abdomen): Percussion/Palpation: + abdomen tender and abdomen soft; no guarding and abdomen not rigid Skin: no rashes, warm and dry Results & Data ([facility]) Vital Signs (Past 12 Hours) Vital Signs Temp Pulse Resp BP BP Pulse Ox 12/28/19 07:47 36.7 C 64 18 118/62 94 12/27/19 23:44 36.9 C 70 16 97/60 L 92 Laboratory Results 12/28/19 12/27/19 12/27/19 Range/Units 06:12 23:36 18:02 POC Glucose 95 85 105 H (70-99) mg/dl Total Bilirubin (0.2-1) mg/dl Direct Bilirubin (0-0.2) mg/dl AST (15-37) U/L ALT (12-78) U/L Alkaline Phosphatase (45-117) U/L Total Protein (6.4-8.2) gm/dl Albumin (3.4-5.0) gm/dl COVID-19 PCR (Negative) 12/27/19 12/27/19 12/27/19 Range/Units 13:48 08:50 03:53 POC Glucose 154 H (70-99) mg/dl Total Bilirubin 0.3 (0.2-1) mg/dl Direct Bilirubin < 0.1 D (0-0.2) mg/dl AST 34 (15-37) U/L ALT 118 H (12-78) U/L Alkaline Phosphatase 509 H (45-117) U/L Total Protein 5.8 L D (6.4-8.2) gm/dl Albumin 2.8 L (3.4-5.0) gm/dl COVID-19 PCR NEGATIVE (Negative) (1) Nausea & vomiting Vomiting Intractability: intractable Vomiting type: unspecified Qualified Code(s): R11.2 - Nausea with vomiting, unspecified
[2019-12-28 11:08] LABS: Albumin Level 2.4 gm/dl (3.4-5.0); Bilirubin,Total 0.5 mg/dl (0.2-1); Total Protein 5.3 gm/dl (6.4-8.2)
[2019-12-28 11:39] LABS: Basophils # (auto) 0.05 K/uL (0-0.2); Basophils % (auto) 0.6 %; Eosinophils # (auto) 0.11 K/uL (0-0.5); Eosinophils % (auto) 1.4 %; Hematocrit (blood only) 36.4 % (42-52); Hemoglobin 11.9 g/dL (14.0-18.0); Immature Granulocytes # (auto) 0.01 K/uL (0.00-0.02); Immature Granulocytes % (auto) 0.1 %; Lymphocytes # (auto) 2.44 K/uL (1.2-3.4); Lymphocytes % (auto) 30.2 %; Mean Corpuscular Hemoglobin 31.7 pg (25-34); Mean Corpuscular Hgb Conc 32.7 g/dL (32-36); Mean Corpuscular Volume 97.1 fL (80-100); Mean Platelet Volume 12.6 fL (7.4-10.4); Monocytes # (auto) 0.58 K/uL (0.11-0.59); Monocytes % (auto) 7.2 %; Neutrophils # (auto) 4.89 K/uL (1.4-6.5); Neutrophils % (auto) 60.5 %; Platelet Count 101 K/uL (130-400); Platelet Estimate Decreased (Normal); RDW Coefficient of Variation 12.9 % (11.5-14.5); RDW Standard Deviation 45.5 fL (36.4-46.3); Red Blood Count 3.75 M/uL (4.7-6.1); White Blood Count 8.08 K/uL (4.8-10.8)
[2019-12-28 11:55] LABS: Bilirubin Direct 0.3 mg/dl (0-0.2)
[2019-12-28] MEDS ORDERED: D5W AND NSS 1,000 ML IV SCH (13:00)
--- NOTE | 2019-12-28 13:04 | Magnetic Resonance Report ---
MRCP CLINICAL HISTORY: elevated LFT, panc cyst TECHNIQUE: Utilizing a 1.5 Donna magnet and dedicated coil, multiplanar, multiecho imaging [facility] abdomen was performed utilizing heavily T2 weighted pulsing sequences without IV contrast. COMPARISON STUDY: MRCP March 26, 2018. CT of the abdomen and pelvis December 26, 2019. KUB December 27, 2019. FINDINGS: This exam is mildly compromised by motion artifact. Gastric distention has resolved since C T of December 26, 2019. Trace abdominal ascites is present. Mild biliary ductal dilatation has slightly in creased since MRI of March 16, 2018. The common bile duct measures 9 mm in caliber. No common bile du ct calculi are identified. There is a abrupt narrowing of the distal common bile duct within the taina on of the pancreatic head. A corresponding T2 hyperintense masslike focus is noted to the level which likely corresponds to the finding on CT of December 26, 2019. There is no pancreatic ductal dilatation. P ancreatic glandular atrophy is again noted. Note is made of duodenal wall thickening. A cyst within t he right kidney is noted. There is no hydronephrosis. Unenhanced images of the spleen spleen and adre nal glands are unremarkable. No hepatic lesions are identified on this unenhanced examination. IMPRESSION: 1. Slight increase in mild biliary ductal dilatation since MRCP of March 16, 2018. Cholecystectomy. N o common bile duct calculi. Abrupt narrowing of the distal common bile duct within the region of the pancreatic head with corresponding T2 hypointense abnormality at this level. This corresponds to the finding on CT of December 26, 2019. This may be benign and related to chronic pancreatitis however a pancr eatic mass could appear similar and a neoplastic etiology cannot be excluded. 2. Interval resolution of gastric distention. 3. Moderate duodenal wall thickening. 4. Trace abdominal ascites. ACT 112: Negative or not required by law. Electronically signed by: Rasta Victoria M.D. 12/28/2019 1:03 PM
[2019-12-28] MEDS ORDERED: HYDROmorphone INJ 1 MG/ML SYRINGE ONE (14:45)
[2019-12-28] MEDS ORDERED: fentaNYL citrate 100 MCG/2 ML VIAL ONE (14:55)
[2019-12-28] MEDS ORDERED: PROPOFOL IV EMULSION 10 MG/ML 20 ML VIAL IV ONE (14:55)
[2019-12-28] MEDS ORDERED: MIDAZOLAM HCL 1 MG/ML 2ML VIAL ONE (14:55)
[2019-12-28] MEDS ORDERED: LIDOCAINE HCL 2% 2 ML VIAL/AMP(20MG/ML) INFIL ONE (14:55)
--- NOTE | 2019-12-28 15:11 | History & Physical Bridge Note ---
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 Based on the history I wonder about a stricture related to chronic pancreatitis or perhaps a malignant stricture. MRCP CLINICAL HISTORY: elevated LFT, panc cyst TECHNIQUE: Utilizing a 1.5 Donna magnet and dedicated coil, multiplanar, multiecho imaging of the upper abdomen was performed utilizing heavily T2 weighted pulsing sequences without IV contrast. COMPARISON STUDY: MRCP March 26, 2018. CT of the abdomen and pelvis December 26, 2019. KUB December 27, 2019. FINDINGS: This exam is mildly compromised by motion artifact. Gastric distention has resolved since CT of December 26, 2019. Trace abdominal ascites is present. Mild biliary ductal dilatation has slightly increased since MRI of March 16, 2018. The common bile duct measures 9 mm in caliber. No common bile duct calculi are identified. There is a abrupt narrowing of the distal common bile duct within the region of the pancreatic head. A corresponding T2 hyperintense masslike focus is noted to the level which likely corresponds to the finding on CT of December 26, 2019. There is no pancreatic ductal dilatation. Pancreatic glandular atrophy is again noted. Note is made of duodenal wall thickening. A cyst within the right kidney is noted. There is no hydronephrosis. Unenhanced images of the spleen spleen and adrenal glands are unremarkable. No hepatic lesions are identified on this unenhanced examination. IMPRESSION: 1. Slight increase in mild biliary ductal dilatation since MRCP of March 16, 2018. Cholecystectomy. No common bile duct calculi. Abrupt narrowing of the distal common bile duct within the region of the pancreatic head with corresponding T2 hypointense abnormality at this level. This corresponds to the finding on CT of December 26, 2019. This may be benign and related to chronic pancreatitis however a pancreatic mass could appear similar and a neoplastic etiology cannot be excluded. 2. Interval resolution of gastric distention. 3. Moderate duodenal wall thickening. 4. Trace abdominal ascites.
--- NOTE | 2019-12-28 15:13 | Anesthesiology Consultation ---
Date of Service December 28, 2019 Assessment & Plan ASA ASA3 Proposed Anesthesia Anesthesia Type: General Risk / Benefits Reviewed With: PT / POA / Parent / Guardian, Accepts Plan and Informed Consent Obtained History Surgery Operation Date: 12/27/19 16:55 Proposed Procedures p Esophagogastroduodenoscopy Dr. Jaky Starkey M.D. Operation Date: 12/28/19 15:50 Proposed Procedures p Endoscopic Retrograde Cholangiopancreatogram - Luz Parker s Endoscopic Ultrasonography Upper - Luz Parker Height/Weight Height: 5 ft 9 in Weight: 53.5 kg Allergies Allergy/AdvReac Type Severity Reaction Status Date / Time phenytoin AdvReac Intermediate "IT MAKES Verified 12/26/19 21:47 ME CRAZY" Medications Home Medications Medication Instructions Recorded Confirmed Last Taken acetaminophen [Tylenol Extra 1,500 mg PO DAILY PRN 11/29/18 12/26/19 Unknown Strength] albuterol sulfate [ProAir HFA] 2 puff INHALATION QID PRN 11/29/18 12/26/19 Unknown aspirin [Aspir-81] 81 mg PO DAILY 11/29/18 12/26/19 11/29/18 06:30 atorvastatin [Lipitor] 40 mg PO DAILY 11/29/18 12/26/19 Unknown gabapentin [Neurontin] 600 mg PO TID 11/29/18 12/26/19 11/29/18 06:30 insulin NPH and regular human 14 unit SUBCUT BID 11/29/18 12/26/19 11/29/18 06:30 [Humulin 70/30 U-100 Insulin] lidocaine 1 applic TOPICAL BID PRN 11/29/18 12/26/19 Unknown metformin [Glucophage XR] 500 mg PO BID 11/29/18 12/26/19 11/29/18 06:30 pantoprazole 40 mg PO BID 11/29/18 11/29/18 11/29/18 06:30 buprenorphine-naloxone [Suboxone] 1 film SUBLINGUAL BID 12/26/19 12/28/19 Unknown lamotrigine [Lamictal] 50 mg PO DAILY 12/26/19 12/26/19 Unknown Active Medications Generic Name Dose Route Start Last Admin Trade Name Freq PRN Reason Stop Dose Admin Gabapentin 600 mg 12/27/19 16:00 12/28/19 07:55 Neurontin PO 01/26/20 15:59 600 mg 0800,1600,2000 YOUSIF Administration Piperacillin Sod/Tazobactam 115 mls @ 28.75 mls/hr 12/27/19 03:00 12/28/19 11:47 Sod 3.375 gm/ Dextrose IV 01/03/20 02:59 0 mls/hr Q8H YOUSIF Infusion Protocol Dextrose/Sodium Chloride 1,000 mls @ 80 mls/hr 12/28/19 13:00 12/28/19 13:30 D5w And Nss IV 01/27/20 12:59 80 mls/hr .[id number] YOUSIF Administration Insulin Aspart 0 units 12/27/19 02:30 12/28/19 12:44 Novolog Flexpen SC 01/26/20 02:29 Not Given Q6 YOUSIF Insulin Glargine 7 units 12/28/19 08:00 12/28/19 08:03 Lantus Solostar Pen SC 01/27/20 07:59 7 units Q24H YOUSIF Administration Lamotrigine 50 mg 12/28/19 08:00 12/28/19 07:55 Lamictal PO 01/27/20 07:59 50 mg DAILY@0800 YOUSIF Administration Miscellaneous 1 ea 12/27/19 08:00 12/28/19 07:54 Order Awaiting Action N/A 01/26/20 07:59 Not Given QS YOUSIF Miscellaneous 15 - 30 gm 12/27/19 02:30 12/28/19 12:56 Carbohydrates For Hypoglycemia PO 01/26/20 02:29 15 gm UD PRN Administration Hypoglycemia Treatment Ondansetron HCl 4 mg 12/27/19 00:14 12/28/19 07:49 Zofran IV 01/26/20 00:13 4 mg Q6H PRN Administration Nausea NPO Date Last Intake of Fluids: 12/26/19 Time Last Intake of Fluids: 11:00 Date Last Intake of Solids: 12/25/19 Time Last Intake of Solids: 11:00 Past Medical History Medical History Alcohol abuse (Acute) Anxiety Back pain Chronic pancreatitis Chronic sinusitis Diabetes (Chronic) poorly controlled Dyslipidemia Gastric outlet obstruction GERD (gastroesophageal reflux disease) Hepatitis C (Acute) Marijuana use Seizures Smoker Exercise / Class Metabolic Activity II 4-5 Yardwork/Stairs/Walk up hill Past Family History Family History (Updated 12/27/19 @ 11:39 by Jose Aguirre MD) Other Colorectal cancer Heart disease Past Surgical History Surgical History (Updated 12/27/19 @ 11:38 by Jose Aguirre MD) History of ERCP History of esophagogastroduodenoscopy (EGD) History of facial surgery Hx laparoscopic cholecystectomy Past Anesthesia History No Hx of Anesthesia Complications and No Family Hx of Anesthesia Complications History of PONV No Hx of PONV and No Hx of Motion Sickness Social History Smoking Status: Current every day smoker tobacco type: cigarettes Smoking cigarettes per day: 40 Do You Dip or Chew Tobacco: No Hx Alcohol Use: No Alcohol Intake Frequency Comment: reports its been over a year since he drank Review of Systems denies fever/cough/ colds/ chest pain/ SOB/ REMY Constitutional: no fever and no chills Respiratory: no cough and no dyspnea denies REMY Cardiovascular: no chest pain and no dyspnea on exertion Physical Exam Vital Signs Last Vital Signs Temp 36.7 C 12/28/19 07:47 Pulse 64 12/28/19 07:47 Resp 18 12/28/19 07:47 BP 118/62 12/28/19 07:47 Pulse Ox 94 12/28/19 07:47 ENMT Mouth: no TMJ abnormality and no dentition abnormality Thyromental Distance: > or= 3.5 Finger Breadths Mallampati Class: II Neck neck extension not limited Respiratory normal respiratory effort; no respiratory distress Auscultation: lungs clear to auscultation bilaterally Cardiovascular Rate/Rhythm: regular rate and regular rhythm Neurologic moves all extremities Psychiatric Orientation: alert and oriented x 3 Testing Laboratory Results 12/28/19 10:30 12/27/19 03:53 PT 10.3 Seconds (9.0-12.0) 12/26/19 18:52 INR 1.0 (0.9-1.1) 12/26/19 18:52 APTT 25.7 Seconds (21.0-31.0) 12/26/19 18:52 Hemoglobin A1c 9.7 % (4.5-5.6) H 12/27/19 03:53 Urine Color Yellow 12/26/19 22:04 Urine Appearance Clear (Clear) 12/26/19 22:04 Urine pH 5.0 (4.5-7.5) 12/26/19 22:04 Ur Specific [place] > 1.045 (1.000-1.030) H 12/26/19 22:04 Urine Protein Negative (Negative) 12/26/19 22:04 Urine Glucose (UA) 3+ (Negative) H 12/26/19 22:04 Urine Ketones 3+ (Negative) H 12/26/19 22:04 Urine Nitrite Negative (Negative) 12/26/19 22:04 Ur Leukocyte Esterase Negative (Negative) 12/26/19 22:04 Urine WBC (Auto) 1-5 /hpf (0-5) 12/26/19 22:04 Urine RBC (Auto) 0-4 /hpf (0-4) 12/26/19 22:04 U Hyaline Cast (Auto) 0 /lpf (0-5) 12/26/19 22:04 U Epithel Cells (Auto) 5-10 /lpf (0-5) H 12/26/19 22:04 Urine Bacteria (Auto) Negative (Negative) 12/26/19 22:04 12/26/19 22:36 Aerobic Blood Culture - Preliminary Blood No growth in Aerobic bottle after 24 hours. Anaerobic Blood Culture - Preliminary No growth in Anaerobic bottle after 24 hours. 12/26/19 22:36 Aerobic Blood Culture - Preliminary Blood No growth in Aerobic bottle after 24 hours. Anaerobic Blood Culture - Preliminary No growth in Anaerobic bottle after 24 hours. 12/28/19 12/28/19 12/28/19 13:12 12:45 06:12 POC Glucose 71 69 L* 95 Electrocardiogram Date: 12/26/19 Findings: + SB @ (57) Chest X-Ray Date: 12/26/19 SINGLE VIEW CHEST CLINICAL HISTORY: Atypical chest pain. FINDINGS: An AP, portable, upright chest radiograph is compared to study dated 11/29/2018. The cardiomediastinal silhouette is unremarkable. The lungs and pleural spaces are clear. No pneumothorax is seen. There is chronic posttraumatic deformity of the right clavicle. IMPRESSION: No active disease in the chest. ACT 112: Negative or not required by law. Electronically signed by: Navid Da Silva M.D. 12/26/2019 7:06 PM Dictated: 12/26/191905 Transcribed: 12/26/191905
[2019-12-28] MEDS ORDERED: fentaNYL citrate 100 MCG/2 ML VIAL IV PRN (15:15)
[2019-12-28] MEDS ORDERED: ePHEDrine sulfate 50 MG/ML AMP IV PRN (15:15)
[2019-12-28] MEDS ORDERED: ATROPINE SULFATE 0.1 MG/ML 10ML SYR IV PRN (15:15)
[2019-12-28] MEDS ORDERED: HYDROmorphone INJ 2 MG/ML SYR/VIAL IV PRN (15:15)
[2019-12-28] MEDS ORDERED: ONDANSETRON INJ 2 MG/ML 2 ML VIAL IV PRN (15:15)
[2019-12-28] MEDS ORDERED: INDOMETHACIN 50 MG SUPP PR ONE (15:32)
[2019-12-28] MEDS ORDERED: ONDANSETRON INJ 2 MG/ML 2 ML VIAL ONE (16:01)
[2019-12-28] MEDS ORDERED: DEXAMETHASONE SOD INJ 4 MG/ML VIAL ONE (16:01)
--- NOTE | 2019-12-28 17:18 | GI REPORT ---
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 Estimated blood loss: Minimal. Estimated Blood Loss: Estimated blood loss was minimal. Procedure: Pre-Anesthesia Assessment: - Prior to the procedure, a History and Physical was performed, and patient medications, allergies and sensitivities were reviewed. The patient's tolerance of previous anesthesia was reviewed. - The risks and benefits of the procedure and the sedation options and risks were discussed with the patient. All questions were answered and informed consent was obtained. - Patient identification and proposed procedure were verified prior to the procedure by the physician, the nurse and the yard coupler. The procedure was verified in the procedure room. - Pre-procedure physical examination revealed no contraindications to sedation. - ASA Grade Assessment: III - A patient with severe systemic disease. - After reviewing the risks and benefits, the patient was deemed in satisfactory condition to undergo the procedure. - The anesthesia plan was to use general anesthesia. - Immediately prior to administration of medications, the patient was re-assessed for adequacy to receive sedatives. - The heart rate, respiratory rate, oxygen saturations, blood pressure, adequacy of pulmonary ventilation, and response to care were monitored throughout the procedure. - The physical status of the patient was re-assessed after the procedure. After obtaining informed consent, the endoscope was passed under direct vision. Throughout the procedure, the patient's blood pressure, pulse, and oxygen saturations were monitored continuously. The Endosonoscope was introduced through the mouth, and advanced to the third part of duodenum. The upper EUS was accomplished without difficulty. The patient tolerated the procedure well. Findings: ENDOSONOGRAPHIC FINDING: : Evidence of a previous cholecystectomy was identified endosonographically. There was dilation in the common bile duct which measured up to 7 mm. There appeared to be an abrupt cutoff of the bile duct within the pancreatic head (area of mass). Diffuse Intrahepatid ductal dilation No lymphadenopathy seen. Endosonographic imaging of the pancreas showed sonographic changes indicative of moderate-severe chronic pancreatitis in the entire pancreas. The parenchyma had calcifications, diffuse echogenicity, hyperechoic foci and lobularity. The pancreatic duct had duct dilation and hyperechoic cornejo. The pancreatic duct measured up to 3 mm in diameter in the body. An irregular mass-like area was identified in the pancreatic head. The mass was hypoechoic and contained multiple calcifications. The mass measured 22 mm by 20 mm in maximal cross-sectional diameter (this was difficult to measure). The endosonographic borders were poorly-defined. An intact interface was seen between the mass and the adjacent structures suggesting a lack of invasion. The remainder of the pancreas was examined. The endosonographic appearance of parenchyma and the upstream pancreatic duct indicated duct dilation, parenchymal atrophy and parenchymal calcifications. Fine needle aspiration for cytology was performed. Color Doppler imaging was utilized prior to needle puncture to confirm a lack of significant vascular structures within the needle path. Three passes were made with the 22 gauge needle using a transduodenal approach. A stylet was used. Final cytology results are pending. Estimated blood loss was minimal. Impression: - Evidence of a cholecystectomy. - There was dilation in the common bile duct which measured up to 7 mm. - Endosonographic imaging of the pancreas showed sonographic changes consistent with moderate-severe chronic pancreatitis. - A poorly defined 22 mm mass was identified in the pancreatic head causing biliary obstruction and upstream PD dilation. Fine needle aspiration performed. This could represent changes from chronic pancreatitis or even an underlying malignancy. Recommendation: - Perform an ERCP today. - Await cytology results. Luz Parker D.O. Luz Parker DO 12/28/2019 5:17:39 PM This report has been signed electronically. Note Initiated On: 12/28/2019 3:31 PM Number of Addenda: 0 I attest to the content of the Intraoperative Record and orders documented therein, exceptions below {[id number]}
--- NOTE | 2019-12-28 17:30 | Fluoroscopy Report ---
INTRAOPERATIVE RADIOGRAPHS CLINICAL HISTORY: ERCP attempt. Fluoroscopy time: 1.25 minutes. FINDINGS: 2 spot fluoroscopic images of the right upper quadrant are presented. Cholecystectomy clips are noted. An endoscope projects over the stomach. IMPRESSION: Intraoperative images from an attempted ERCP as above. Electronically signed by: Navid Da Silva M.D. 12/28/2019 5:29 PM
--- NOTE | 2019-12-28 17:32 | GI REPORT ---
Patient Name: Elvira Zimmerman Procedure Date: 12/28/2019 4:04 PM Date of : 1965 Admit Type: Inpatient Age: 54 Gender: Male Attending MD: Luz Parker DO Procedure: ERCP Providers: Luz Parker DO Referring MD: Tee Garcia Indications: Abdominal pain of suspected biliary origin, Abnormal MRCP, Elevated liver enzymes Medicines: General Anesthesia Complications: No immediate complications. Estimated blood loss: Minimal. Estimated Blood Loss: Estimated blood loss was minimal. Procedure: Pre-Anesthesia Assessment: - Prior to the procedure, a History and Physical was performed, and patient medications, allergies and sensitivities were reviewed. The patient's tolerance of previous anesthesia was reviewed. - The risks and benefits of the procedure and the sedation options and risks were discussed with the patient. All questions were answered and informed consent was obtained. - Patient identification and proposed procedure were verified prior to the procedure by the physician, the nurse and the tank tester. The procedure was verified in the procedure room. - Pre-procedure physical examination revealed no contraindications to sedation. - ASA Grade Assessment: III - A patient with severe systemic disease. - After reviewing the risks and benefits, the patient was deemed in satisfactory condition to undergo the procedure. - The anesthesia plan was to use general anesthesia. - Immediately prior to administration of medications, the patient was re-assessed for adequacy to receive sedatives. - The heart rate, respiratory rate, oxygen saturations, blood pressure, adequacy of pulmonary ventilation, and response to care were monitored throughout the procedure. - The physical status of the patient was re-assessed after the procedure. After obtaining informed consent, the scope was passed under direct vision. Throughout the procedure, the patient's blood pressure, pulse, and oxygen saturations were monitored continuously. The Scope was introduced through the mouth, and advanced to the duodenum without successful cannulation. The Endoscope was introduced through the mouth, and advanced to the duodenum and used to locate the major papilla. The ERCP was accomplished without difficulty. The patient tolerated the procedure well. Findings: A construction area manager film of the abdomen was obtained. Surgical clips, consistent with a previous cholecystectomy, were seen in the area of the right upper quadrant of the abdomen. The esophagus was successfully intubated under direct vision without detailed examination of the pharynx, larynx, and associated structures. A standard esophagogastroduodenoscopy scope was used for the examination of the upper gastrointestinal tract. The scope was passed under direct vision through the upper GI tract. LA Grade C (one or more mucosal breaks continuous between tops of 2 or more mucosal folds, less than 75% circumference) esophagitis with no bleeding was found in the lower third of the esophagus. Diffuse mild inflammation characterized by congestion (edema), erythema and granularity was found in the entire examined stomach. Localized severe inflammation characterized by congestion (edema), erythema, granularity and deep ulcerations was found in the duodenal bulb. An acquired moderate stenosis was found in the duodenal bulb and was traversed. Biopsies were taken in the duodenal bulb through the esophagogastroduodenoscope with the cold forceps for histology. A stiff Jagg wire was left in place to aid in biliary cannulation. The major papilla was congested. The bile duct could not be cannulated with the short-nosed traction sphincterotome and guidewire despite numerous attempts and wire/cannula combinations. The endoscope was withdrawn from the patient. Indomethacin 100 mg was given via suppository to decrease the risk of post-ERCP pancreatitis (PEP). Impression: - LA Grade C reflux esophagitis. - Gastritis. - Duodenitis with ulceration. - Acquired duodenal stenosis causing gastric outlet obstruction. - Biopsies were taken with a cold forceps for histology in the duodenal bulb. - The major papilla appeared congested. - Indomethacin given to decrease risk of post-ERCP pancreatitis. Recommendation: - Return [facility] to [facility] care. - Clear liquid diet today. - Consider referral to tertiary center (patient may benefit from a repeat attempt at ERCP). - Continue Protonix 40 mg twiced daily - Avoid NSAIDs Luz Parker D.O. Luz Parker DO 12/28/2019 5:31:47 PM This report has been signed electronically. Note Initiated On: 12/28/2019 4:04 PM Number of Addenda: 0 I attest to the content of the Intraoperative Record and orders documented therein, exceptions below {[id number]}
--- NOTE | 2019-12-28 17:33 | Post Operative Brief Note ---
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 I identified the patient and participated in the time-out.: Yes Procedure Operation Date: 12/27/19 16:55 Actual Procedures p EGD Biopsy Dilatation - Nat Starkey M.D. Operation Date: 12/28/19 15:50 Actual Procedures p Endoscopic Retrograde Cholangiopancreatogram(Not Applicable) - Luz Parker s Endoscopic Ultrasonography Upper - Luz Parker s EGD Biopsy Cytology(Not Applicable) - Luz Parker Surgeon Luz Parker Downstream Biomanufacturing Technician none Estimated Blood Loss 0 Findings Consistent with Post-Op Diagnosis
--- NOTE | 2019-12-28 17:35 | Communication Note ---
Date of Service: December 28, 2019 The patient underwent upper endoscopy, EUS and ERCP this afternoon. Findings Erosive esophagitis Stricture of the duodenal bulb with ulceration 22 mm pancreatic mass, could be inflammatory or malignant in etiology Unable to cannulate the pancreatic duct or the common bile duct due to the stricture related to chronic pancreatitis Recommendations Clear liquid diet Continue Protonix twice daily Await cytology Referral to a tertiary Medical Center for repeat attempt at ERCP (if patient has benign disease he may benefit from placement of a gastrojejunal axios stent)
--- NOTE | 2019-12-28 17:38 | Anesthesiology Progress Note ---
Date of Service December 28, 2019 Anesthesia Post Procedure Vital Signs Vital Signs: Temp Pulse Resp BP BP Pulse Ox 12/28/19 15:16 36.6 C 64 20 120/62 92 12/28/19 07:47 36.7 C 64 18 118/62 94 12/27/19 23:44 36.9 C 70 16 97/60 L 92 Pain Intensity Abdomen: Pain Intensity: 8 Transfer of Care Handoff Completed per policy Notes Mental Status: alert / awake / arousable and participated in evaluation Patient Amnestic to Procedure: Yes Nausea / Vomiting: adequately controlled Pain: adequately controlled Airway Patency, RR, SpO2: stable & adequate BP & HR: stable & adequate Hydration State: stable & adequate Anesthetic Complications: no major complications apparent and Pt Satisfied with anesthetic care
--- NOTE | 2019-12-28 19:45 | Hospitalist Progress Note ---
Date of Service December 28, 2019 Assessment & Plan (1) Abdominal pain: (2) Gastric outlet obstruction: 54-year-old male with history of alcoholic pancreatitis, chronic, diabetes type 2, dyslipidemia, smoker, hep C, Epilepsy, back pain, generalized anxiety disorder, coming in with abdominal pain . 1. Abdominal pain, secondary to gastric pyloric stenosis, esophagitis and duodenitis, pancreatic mass of the head. --Dec 27 2019 status post EGD, revealing mild gastric pylorus stenosis, status post dilation December 28, 2019 status post ERCP, EUS--> found to have duodenal stricture/chronic pancreatitis/20 mm ill-defined head of pancreas mass --Discussed case with Dr. Parker Recommend referral to tertiary center for further evaluation and management of common bile duct stricture, pancreatic head mass --For tonight may advance diet to clear liquids Continue pain control Continue IV fluids Follow-up biopsies from EGD, ERCP, EUS Gastroesophagitis/duodenitis. On ct scan. --Status post EGD: Mild duodenitis Continue IV Protonix, then transition to 40 mg p.o. twice daily 2, Fever --Leukocytosis resolved Blood cultures: Pending --Afebrile since last night --Unclear source of infection at this point --COVID-19 negative --Continue IV Zosyn Follow cultures, monitor 3. Diabetes --Metformin, hold for now --On insulin Lantus, and sliding scale 4. Hyponatremia. --Sodium improved from 129-1 35 Continue NSS 5. Esophagitis, duodenitis --#1 6. Alcoholism. The patient says quit 1 year ago.Will monitor. 7. Elevated LFTs. -- Alk phos [phone] AST 34 --> 81 ALT 118 to 98 8. History of epilepsy -- on Lamictal and gabapentin. 9. Chronic pain, on Suboxone. --On Dilaudid IV. Hold suboxone 10. Hyperlipidemia: --Hold statin for now given GI symptoms 11. Hepatitis C, not treated. Needs followup. 12. Tobacco abuse. Needs counseling. 13. Deep venous thrombosis prophylaxis, sequential compression devices. --Avoid anticoagulation in light of esophagitis, duodenitis biopsy performed today Disposition anticipate transfer to [facility] tomorrow Admission and Anticipated Discharge Date Admission Date: December 26, 2019 Subjective Follow-up for epigastric pain, pancreatic mass Status post ERCP, EUS this afternoon Seen sitting up in bed, having clear liquid diet Patient is upset with his diagnosis, tearful, patient reassured Reports persistent epigastric pain, severe No nausea Denies any other symptoms Review of Systems Review of Systems: All systems reviewed & are unremarkable except as noted in HPI & below Physical Exam Physical Exam: General- oriented x 3, not in distress, speaks in sentences with no effort or accessory muscle use Eyes- anicteric Neck- no JVD Lungs- clear breath sounds bilaterally, no rales/wheezes Heart- normal rate, regular rhythm; no murmurs Abdomen- normal bowel sounds, nondistended, soft, positive mild tenderness in epigastric area Extremities- no pretibial edema, no calf tenderness Neuro- alert, oriented x 3; no gross focal neurologic deficits Skin- warm & dry Results & Data Results & Data ([facility]) Vital Signs (Past 12 Hours) Vital Signs Temp Pulse Pulse Resp BP BP Pulse Ox 12/28/19 19:00 36.4 C L 71 16 134/83 97 12/28/19 18:30 36.4 C L 54 L 16 135/87 96 12/28/19 17:40 81 16 159/95 H 97 12/28/19 17:30 36.2 C L 83 16 142/107 H 97 12/28/19 15:16 36.6 C 64 20 120/62 92 12/28/19 07:47 36.7 C 64 18 118/62 94 Laboratory Results Laboratory Results - last 24 hr 12/27/19 12/28/19 12/28/19 23:36 06:12 10:30 WBC 8.08 RBC 3.75 L Hgb 11.9 L Hct 36.4 L MCV 97.1 MCH 31.7 MCHC 32.7 RDW Std Deviation 45.5 RDW Coeff of Elda 12.9 Plt Count 101 L MPV 12.6 H Immature Gran % (Auto) 0.1 Neut % (Auto) 60.5 Lymph % (Auto) 30.2 [place] % (Auto) 7.2 Eos % (Auto) 1.4 Baso % (Auto) 0.6 Immature Gran # (Auto) 0.01 Neut # (Auto) 4.89 Lymph # (Auto) 2.44 [place] # (Auto) 0.58 Eos # (Auto) 0.11 Baso # (Auto) 0.05 Platelet Estimate Decreased L POC Glucose 85 95 Total Bilirubin Direct Bilirubin GGT AST ALT Alkaline Phosphatase Alk Phos Iso-Intestine Alk Phos Iso-Bone Alk Phos Iso-Liver Alk Phos Iso-Macro Hepat Alk Phos Iso-Placenta ALP Isoenzymes Interp Total Protein Albumin 12/28/19 12/28/19 12/28/19 10:30 11:43 11:43 WBC RBC Hgb Hct MCV MCH MCHC RDW Std Deviation RDW Coeff of Elda Plt Count MPV Immature Gran % (Auto) Neut % (Auto) Lymph % (Auto) [place] % (Auto) Eos % (Auto) Baso % (Auto) Immature Gran # (Auto) Neut # (Auto) Lymph # (Auto) [place] # (Auto) Eos # (Auto) Baso # (Auto) Platelet Estimate POC Glucose Total Bilirubin 0.5 Direct Bilirubin 0.3 H D GGT Pending AST 81 H ALT 98 H Alkaline Phosphatase 502 H Cancelled Alk Phos Iso-Intestine Cancelled Alk Phos Iso-Bone Cancelled Alk Phos Iso-Liver Cancelled Alk Phos Iso-Macro Hepat Cancelled Alk Phos Iso-Placenta Cancelled ALP Isoenzymes Interp Cancelled Total Protein 5.3 L Albumin 2.4 L 12/28/19 12/28/19 12/28/19 11:43 12:45 13:12 WBC RBC Hgb Hct MCV MCH MCHC RDW Std Deviation RDW Coeff of Elda Plt Count MPV Immature Gran % (Auto) Neut % (Auto) Lymph % (Auto) [place] % (Auto) Eos % (Auto) Baso % (Auto) Immature Gran # (Auto) Neut # (Auto) Lymph # (Auto) [place] # (Auto) Eos # (Auto) Baso # (Auto) Platelet Estimate POC Glucose 69 L* 71 Total Bilirubin Direct Bilirubin GGT AST ALT Alkaline Phosphatase Pending Alk Phos Iso-Intestine Pending Alk Phos Iso-Bone Pending Alk Phos Iso-Liver Pending Alk Phos Iso-Macro Hepat Pending Alk Phos Iso-Placenta Pending ALP Isoenzymes Interp Pending Total Protein Albumin 12/28/19 18:23 WBC RBC Hgb Hct MCV MCH MCHC RDW Std Deviation RDW Coeff of Elda Plt Count MPV Immature Gran % (Auto) Neut % (Auto) Lymph % (Auto) [place] % (Auto) Eos % (Auto) Baso % (Auto) Immature Gran # (Auto) Neut # (Auto) Lymph # (Auto) [place] # (Auto) Eos # (Auto) Baso # (Auto) Platelet Estimate POC Glucose 220 H Total Bilirubin Direct Bilirubin GGT AST ALT Alkaline Phosphatase Alk Phos Iso-Intestine Alk Phos Iso-Bone Alk Phos Iso-Liver Alk Phos Iso-Macro Hepat Alk Phos Iso-Placenta ALP Isoenzymes Interp Total Protein Albumin
[2019-12-28] MEDS: PANTOprazole 40 MG TAB PO SCH (20:43)
[2019-12-28] MEDS ORDERED: INSULIN GLARGINE SOLOSTAR 100 UNITS/ML 3 ML PEN SC STA (20:57)
[2019-12-28] MEDS ORDERED: BUPRENORPHINE/NALOXONE 8/2 MG TAB SL SCH (21:00)
[2019-12-28] MEDS ORDERED: PANTOprazole 40 MG TAB PO SCH (21:00)
[2019-12-28] MEDS: LORazepam 0.5 MG TAB PO PRN (21:51)
[2019-12-29] MEDS: HYDROmorphone INJ 0.5 MG/0.5 ML SYR IV PRN ×4 (02:36→14:03)
[2019-12-29] MEDS: PIPERACILLIN/TAZOBACTAM 3.375 GM in DEXTROSE 5% 100 ML IV SCH ×2 (02:43→10:45)
[2019-12-29] MEDS: ONDANSETRON INJ 2 MG/ML 2 ML VIAL IV PRN (02:50)
[2019-12-29] MEDS ORDERED: INSULIN ASPART 100 UNITS/ML 3 ML PEN SC SCH (06:00)
[2019-12-29] MEDS: LORazepam 0.5 MG TAB PO PRN ×2 (06:11→13:10)
[2019-12-29 06:13] LABS: Creatinine Clr Calc Pharmacy 87.9 ml/min; Est GFR (African American) 121.6; Est GFR (Non-African American) 104.9
[2019-12-29] MEDS: INSULIN ASPART 100 UNITS/ML 3 ML PEN SC SCH ×3 (06:13→12:36)
[2019-12-29] MEDS ORDERED: INSULIN GLARGINE SOLOSTAR 100 UNITS/ML 3 ML PEN SC SCH ×2 (06:30→09:00)
[2019-12-29] MEDS ORDERED: Nursing to Pharmacy Communication ONE (07:24)
[2019-12-29] MEDS: PANTOprazole 40 MG TAB PO SCH (08:40)
[2019-12-29] MEDS: GABAPENTIN 600 MG TAB PO SCH (08:41)
[2019-12-29] MEDS: lamoTRIgine 25 MG TAB PO SCH (08:41)
[2019-12-29] MEDS: SODIUM CHLORIDE 0.9% 1000ML 1,000 ML IV SCH (08:42)
[2019-12-29 09:15] LABS: Basophils # (auto) 0.02 K/uL (0-0.2); Basophils % (auto) 0.3 %; Eosinophils # (auto) 0.03 K/uL (0-0.5); Eosinophils % (auto) 0.4 %; Hematocrit (blood only) 33.1 % (42-52); Hemoglobin 11.3 g/dL (14.0-18.0); Immature Granulocytes # (auto) 0.01 K/uL (0.00-0.02); Immature Granulocytes % (auto) 0.1 %; Lymphocytes % (auto) 27.6 %; Mean Corpuscular Hemoglobin 32.3 pg (25-34); Mean Corpuscular Hgb Conc 34.1 g/dL (32-36); Mean Corpuscular Volume 94.6 fL (80-100); Mean Platelet Volume 12.1 fL (7.4-10.4); Monocytes # (auto) 0.61 K/uL (0.11-0.59); Monocytes % (auto) 7.7 %; Neutrophils % (auto) 63.9 %; Platelet Count 142 K/uL (130-400); RDW Coefficient of Variation 12.2 % (11.5-14.5); RDW Standard Deviation 41.4 fL (36.4-46.3); White Blood Count 7.97 K/uL (4.8-10.8)
[2019-12-29 09:32] LABS: Alanine Aminotransferase 85 U/L (12-78); Albumin Level 2.4 gm/dl (3.4-5.0); Alkaline Phosphatase 423 U/L (45-117); Aspartate Aminotransferase 37 U/L (15-37); Bilirubin,Total 0.3 mg/dl (0.2-1); Total Protein 5.1 gm/dl (6.4-8.2)
--- NOTE | 2019-12-29 10:38 | Hospitalist Progress Note ---
Date of Service December 29, 2019 Assessment & Plan (1) Abdominal pain: (2) Gastric outlet obstruction: 54-year-old male with history of alcoholic pancreatitis, chronic, diabetes type 2, dyslipidemia, smoker, hep C, Epilepsy, back pain, generalized anxiety disorder, coming in with abdominal pain . 1. Abdominal pain, secondary to gastric pyloric stenosis, esophagitis and duodenitis, pancreatic mass of the head. --Dec 27 2019 status post EGD, revealing mild gastric pylorus stenosis, status post dilation Stomach biopsy: Pending --CT abdomen/pelvis: 1. The stomach is markedly distended and fluid-filled to the level of the duodenum at the pancreatic head. This likely represents obstruction. 2. The gastric mucosa is hyperemic, with mucosal edema involving predominantly the distal esophagus and proximal duodenum. Correlate clinically for evidence of superimposed gastroesophagitis/duodenitis. 3. There is heterogeneity of the pancreatic head with evidence of chronic pancreatitis. 4. As noted above the level of duodenal obstruction is at the level of the pancreatic head. This could be potentially be related to stricture or possibly obstructing mass lesion. GI consultation is advised. Consider endoscopy for further assessment. 5. No intraperitoneal free air is seen. There is no pneumatosis intestinalis or portal venous gas. --MRCP: 1. Slight increase in mild biliary ductal dilatation since MRCP of March 16, 2018. Cholecystectomy. No common bile duct calculi. Abrupt narrowing of the distal common bile duct within the region of the pancreatic head with corresponding T2 hypointense abnormality at this level. This corresponds to the finding on CT of December 26, 2019. This may be benign and related to chronic pancreatitis however a pancreatic mass could appear similar and a neoplastic etiology cannot be excluded. 2. Interval resolution of gastric distention. 3. Moderate duodenal wall thickening. 4. Trace abdominal ascites. -- December 28, 2019 status post ERCP, EUS Erosive esophagitis Stricture of the duodenal bulb with ulceration mm pancreatic mass, could be inflammatory or malignant in etiology Unable to cannulate the pancreatic duct or the common bile duct due to the stricture related to chronic pancreatitis Recommendations Clear liquid diet Continue Protonix twice daily Await cytology Referral to a tertiary Medical Center for repeat attempt at ERCP (if patient has benign disease he may benefit from placement of a gastrojejunal axios stent) Follow-up biopsies from EGD, ERCP, EUS Discussed findings with patient, he is agreeable for transfer to [facility] [place] [facility] [place] for [place] today Gastroesophagitis/duodenitis. On ct scan. --Status post EGD: Mild duodenitis Continue IV Protonix, then transition to 40 mg p.o. twice daily Follow-up biopsy results 2, Fever --Noted to have fever of 38.0 on hospital day #1 --Leukocytosis resolved, from 18 K now 7K Blood cultures: Negative x48 hours CXR: No pneumonia UA: For bacteria or leukocyte esterase --Afebrile since admission day --Unclear source of infection at this point --COVID-19 negative --Continue IV Zosyn day #3 Follow cultures, monitor 3. Diabetes --Metformin, hold for now --On insulin Lantus, and sliding scale 4. Hyponatremia. --Sodium improved from 129-1 35 Continue NSS 5. Esophagitis, duodenitis --#1 6. Alcoholism. --The patient says quit 1 year ago --No signs of withdrawal 7. Elevated LFTs. -- Alk phos 509->502 --> 423 AST 34 --> 81--> 37 ALT 118 --> 98 --> 85 T janina 0.5 --> 0.3 8. History of epilepsy -- on Lamictal and gabapentin. 9. Chronic pain, on Suboxone. --On Dilaudid IV. Hold suboxone while on IV Dilaudid 10. Hyperlipidemia: --Hold statin for now given GI symptoms 11. Hepatitis C, not treated. Needs followup. 12. Tobacco abuse. Needs counseling. 13. Deep venous thrombosis prophylaxis, sequential compression devices. --Avoiding anticoagulation in light of esophagitis, duodenitis biopsies performed Disposition transfer to [facility] Admission and Anticipated Discharge Date Admission Date: December 26, 2019 Subjective Follow-up for duodenal stricture, pancreatic mass Seen resting in bed, comfortable, not in distress States pain is well controlled, tolerating clear liquids well No shortness of breath, chest pain, palpitations, dizziness No other symptoms Review of Systems Review of Systems: All systems reviewed & are unremarkable except as noted in HPI & below Physical Exam Physical Exam: General- oriented x 3, not in distress, speaks in sentences with no effort or accessory muscle use Eyes- anicteric Neck- no JVD Lungs- clear breath sounds bilaterally, no rales/wheezes Heart- normal rate, regular rhythm; no murmurs Abdomen- normal bowel sounds, nondistended, soft, nontender Extremities- no pretibial edema, no calf tenderness Neuro- alert, oriented x 3; no gross focal neurologic deficits Skin- warm & dry Results & Data Results & Data ([facility]) Vital Signs (Past 12 Hours) Vital Signs Temp Pulse Resp BP BP Pulse Ox 12/29/19 10:05 37.3 C 85 18 95/53 L 98 12/29/19 07:43 37.0 C 76 18 108/62 90 12/28/19 23:13 37.3 C 65 18 111/72 97 Laboratory Results Laboratory Results - last 24 hr 12/28/19 12/28/19 12/28/19 10:30 10:30 11:43 WBC 8.08 RBC 3.75 L Hgb 11.9 L Hct 36.4 L MCV 97.1 MCH 31.7 MCHC 32.7 RDW Std Deviation 45.5 RDW Coeff of Elda 12.9 Plt Count 101 L MPV 12.6 H Immature Gran % (Auto) 0.1 Neut % (Auto) 60.5 Lymph % (Auto) 30.2 [place] % (Auto) 7.2 Eos % (Auto) 1.4 Baso % (Auto) 0.6 Immature Gran # (Auto) 0.01 Neut # (Auto) 4.89 Lymph # (Auto) 2.44 [place] # (Auto) 0.58 Eos # (Auto) 0.11 Baso # (Auto) 0.05 Platelet Estimate Decreased L Creatinine Est Cr Clr Drug Dosing Est GFR ( Amer) Est GFR (Non-Af Amer) POC Glucose Total Bilirubin 0.5 Direct Bilirubin 0.3 H D GGT 606 H AST 81 H ALT 98 H Alkaline Phosphatase 502 H Alk Phos Iso-Intestine Alk Phos Iso-Bone Alk Phos Iso-Liver Alk Phos Iso-Macro Hepat Alk Phos Iso-Placenta ALP Isoenzymes Interp Total Protein 5.3 L Albumin 2.4 L 12/28/19 12/28/19 12/28/19 11:43 11:43 12:45 WBC RBC Hgb Hct MCV MCH MCHC RDW Std Deviation RDW Coeff of Elda Plt Count MPV Immature Gran % (Auto) Neut % (Auto) Lymph % (Auto) [place] % (Auto) Eos % (Auto) Baso % (Auto) Immature Gran # (Auto) Neut # (Auto) Lymph # (Auto) [place] # (Auto) Eos # (Auto) Baso # (Auto) Platelet Estimate Creatinine Est Cr Clr Drug Dosing Est GFR ( Amer) Est GFR (Non-Af Amer) POC Glucose 69 L* Total Bilirubin Direct Bilirubin GGT AST ALT Alkaline Phosphatase Cancelled Pending Alk Phos Iso-Intestine Cancelled Pending Alk Phos Iso-Bone Cancelled Pending Alk Phos Iso-Liver Cancelled Pending Alk Phos Iso-Macro Hepat Cancelled Pending Alk Phos Iso-Placenta Cancelled Pending ALP Isoenzymes Interp Cancelled Pending Total Protein Albumin 12/28/19 12/28/19 12/28/19 13:12 18:23 20:40 WBC RBC Hgb Hct MCV MCH MCHC RDW Std Deviation RDW Coeff of Elda Plt Count MPV Immature Gran % (Auto) Neut % (Auto) Lymph % (Auto) [place] % (Auto) Eos % (Auto) Baso % (Auto) Immature Gran # (Auto) Neut # (Auto) Lymph # (Auto) [place] # (Auto) Eos # (Auto) Baso # (Auto) Platelet Estimate Creatinine Est Cr Clr Drug Dosing Est GFR ( Amer) Est GFR (Non-Af Amer) POC Glucose 71 220 H 336 H* Total Bilirubin Direct Bilirubin GGT AST ALT Alkaline Phosphatase Alk Phos Iso-Intestine Alk Phos Iso-Bone Alk Phos Iso-Liver Alk Phos Iso-Macro Hepat Alk Phos Iso-Placenta ALP Isoenzymes Interp Total Protein Albumin 12/28/19 12/29/19 12/29/19 20:42 05:29 05:29 WBC 7.97 RBC 3.50 L Hgb 11.3 L Hct 33.1 L MCV 94.6 MCH 32.3 MCHC 34.1 RDW Std Deviation 41.4 RDW Coeff of Elda 12.2 Plt Count 142 MPV 12.1 H Immature Gran % (Auto) 0.1 Neut % (Auto) 63.9 Lymph % (Auto) 27.6 [place] % (Auto) 7.7 Eos % (Auto) 0.4 Baso % (Auto) 0.3 Immature Gran # (Auto) 0.01 Neut # (Auto) 5.10 Lymph # (Auto) 2.20 [place] # (Auto) 0.61 H Eos # (Auto) 0.03 Baso # (Auto) 0.02 Platelet Estimate Creatinine 0.71 Est Cr Clr Drug Dosing 87.9 Est GFR ( Amer) 121.6 Est GFR (Non-Af Amer) 104.9 POC Glucose 337 H* Total Bilirubin Direct Bilirubin GGT AST ALT Alkaline Phosphatase Alk Phos Iso-Intestine Alk Phos Iso-Bone Alk Phos Iso-Liver Alk Phos Iso-Macro Hepat Alk Phos Iso-Placenta ALP Isoenzymes Interp Total Protein Albumin 12/29/19 12/29/19 12/29/19 05:29 06:06 08:07 WBC RBC Hgb Hct MCV MCH MCHC RDW Std Deviation RDW Coeff of Elda Plt Count MPV Immature Gran % (Auto) Neut % (Auto) Lymph % (Auto) [place] % (Auto) Eos % (Auto) Baso % (Auto) Immature Gran # (Auto) Neut # (Auto) Lymph # (Auto) [place] # (Auto) Eos # (Auto) Baso # (Auto) Platelet Estimate Creatinine Est Cr Clr Drug Dosing Est GFR ( Amer) Est GFR (Non-Af Amer) POC Glucose 363 H* 132 H Total Bilirubin 0.3 Direct Bilirubin Pending GGT AST 37 ALT 85 H Alkaline Phosphatase 423 H Alk Phos Iso-Intestine Alk Phos Iso-Bone Alk Phos Iso-Liver Alk Phos Iso-Macro Hepat Alk Phos Iso-Placenta ALP Isoenzymes Interp Total Protein 5.1 L Albumin 2.4 L
--- NOTE | 2019-12-29 10:45 | Discharge Summary ---
Date of Service December 29, 2019 Admission HPI Per Admitting Provider HISTORY OF PRESENT ILLNESS: This 54-year-old male with past medical history significant for alcohol chronic pancreatitis, type 2 diabetes, pancreatic insufficiency, hyperlipidemia, chronic sinusitis, chronic cough from smoking, chronic hepatitis C, not treated yet, gastroesophageal reflux disease, partial gastric outlet obstruction, history of epilepsy, chronic back pain, generalized anxiety disorder, tobacco use disorder, presents with abdominal pain. The patient says about 1 week he is having epigastric abdominal pain radiating to the back, very severe, associated with several episodes of vomiting, no blood in the vomitus, bowel movement was 3-4 days ago, it was normal. No blood in the stools. Normal bladder movements. Denies any fever. Sometime when the pain is severe, he feels hot and chilly. He has smoker's cough. Denies any shortness of breath, no chest pain. Has some mild headache, no dizziness, no earache, no runny nose, no sore throat. Asking for pain medication. Hemodynamics are stable. denies any loss of smell or taste. denies exposure to covid . PAST MEDICAL HISTORY: As mentioned above. PAST SURGICAL HISTORY: Augmentation of the facial bones, EGD with endoscopic ultrasounds, ERCP, laparoscopic cholecystectomy. MEDICATIONS: The patient is on gabapentin 600 mg p.o. t.i.d., insulin 70/30, 14 units b.i.d., Protonix 40 mg b.i.d., aspirin 81 mg p.o. daily, Lamictal 50 mg p.o. daily, albuterol 2 puffs inhalation q.i.d. p.r.n., Lipitor 40 mg p.o. daily, Suboxone two films sublingual b.i.d., lidocaine topical b.i.d., metformin XR 500 mg p.o. b.i.d. FAMILY HISTORY: Significant for brother with colon cancer, heart disorder. Mother has heart disorder, hypertension. Maternal grandfather has epilepsy. SOCIAL HISTORY: Lives with his girlfriend, smokes 2 packs a day for 34 years. He says he has quit drinking alcohol about a year ago. Smokes marijuana. Admission Exam Per Admitting Provider GENERAL: The patient is of moderate build, not in acute distress. CURRENT VITAL SIGNS: Temperature 36.8, pulse 64, respiratory rate 12, blood pressure 118/73, oxygen 97% on room air. HEENT: No pallor, no icterus. NECK: No JVD, no neck masses, no carotid bruit. Supple. CARDIOVASCULAR: S1, S2 heard, regular rate and rhythm, no murmur, no gallop. RESPIRATORY SYSTEM: Normal AP diameter. No accessory muscle use. No wheezing, no crackles. ABDOMEN: Soft. Bowel sounds sluggish. Epigastric tenderness present. Mild guarding, no rigidity. No distention. CENTRAL NERVOUS SYSTEM: Cranial nerves II-XII grossly intact, nonfocal. EXTREMITIES: No edema, no erythema. Principal Diagnosis Duodenal stricture, pancreatic mass, common bile duct stricture Discharge Exam General- oriented x 3, not in distress, speaks in sentences with no effort or accessory muscle use Eyes- anicteric Neck- no JVD Lungs- clear breath sounds bilaterally, no rales/wheezes Heart- normal rate, regular rhythm; no murmurs Abdomen- normal bowel sounds, nondistended, soft, positive mild tenderness in epigastric area Extremities- no pretibial edema, no calf tenderness Neuro- alert, oriented x 3; no gross focal neurologic deficits Skin- warm & dry Discharge Data Allergies Allergy/AdvReac Type Severity Reaction Status Date / Time phenytoin AdvReac Intermediate "IT MAKES Verified 12/26/19 21:47 ME LEYVA" Consultations 12/26/19 21:36 ED Decision to Admit Stat 12/27/19 00:14 Consult Case Management - Discharge Planning Routine 12/27/19 08:00 Consult Gastroenterology Routine Procedures Performed Operation Date: 12/27/19 16:55 Actual Procedures p EGD Biopsy Dilatation - Nat Starkey M.D. Operation Date: 12/28/19 15:50 Actual Procedures p Endoscopic Retrograde Cholangiopancreatogram(Not Applicable) - Luz Parker s Endoscopic Ultrasonography Upper - Luz Parker s EGD Biopsy Cytology(Not Applicable) - Luz Parker Ordered Studies 12/26/19 18:23 CT abd pelvis IV con only Stat COMPARISON STUDY: Abdominal CT dated 05/19/2016. Abdominal MRI dated 03/16/2018. TECHNIQUE: Following the IV administration of 94 cc of Optiray 320, CT scan of the abdomen and pelvis is performed from the lung bases to the proximal femora. Images are reviewed in the axial, sagittal, and coronal planes. IV contrast was administered without complication. A dose lowering technique was utilized adhering to the principles of ALARA. CT DOSE: 268.67 mGy.cm FINDINGS: Lung bases: The heart is normal in size and without pericardial effusion. The lung bases are clear. Liver: The contrast-enhanced liver is normal in size, contour, and attenuation. There is mild intrahepatic biliary ductal dilatation. The hepatic veins and portal veins are patent. Gallbladder: Surgically absent noting clips in the gallbladder fossa. Spleen: Normal in size and attenuation. Pancreas: The pancreas is atrophic. The pancreatic head appears heterogeneous. There are coarse calcifications in the pancreatic head and scattered throughout the pancreatic parenchyma suggesting chronic pancreatitis. Small cystic foci are again suggested in the pancreatic head. Prominence of the pancreatic duct is similar to previous unlikely to parenchymal atrophy. Adrenal glands: Unremarkable. Kidneys: The contrast enhanced kidneys are normal in size and without hydronephrosis. The kidneys enhance symmetrically. Small complex cysts are unchanged from previous. Abdominal vasculature: The abdominal aorta is normal in course and caliber noting mild to moderate atherosclerotic calcification. Stomach and bowel: There is a small hiatal hernia. The stomach is distended and fluid-filled. The gastric mucosa appears hyperemic, and there is mild mucosal edema which greatest involving the distal esophagus and proximal duodenum. There is marked narrowing of the proximal duodenum at the level of the pancreatic head. This is best seen on image #163., This likely causes obstruction. There is moderate colonic fecal retention. No distal small bowel loops and colon are normal in caliber. No pneumatosis intestinalis or portal venous gas is seen. The appendix is not identified and reported surgically absent. Peritoneum: There is no intraperitoneal free air or abdominal ascites. Lymphadenopathy: None. Pelvic viscera: The prostate gland is mildly enlarged and heterogeneous. The bladder is distended but grossly unremarkable. Skeletal structures: No lytic or blastic lesions are seen. IMPRESSION: 1. The stomach is markedly distended and fluid-filled to the level of the duodenum at the pancreatic head. This likely represents obstruction. 2. The gastric mucosa is hyperemic, with mucosal edema involving predominantly the distal esophagus and proximal duodenum. Correlate clinically for evidence of superimposed gastroesophagitis/duodenitis. 3. There is heterogeneity of the pancreatic head with evidence of chronic pancreatitis. 4. As noted above the level of duodenal obstruction is at the level of the pancreatic head. This could be potentially be related to stricture or possibly obstructing mass lesion. GI consultation is advised. Consider endoscopy for further assessment. 5. No intraperitoneal free air is seen. There is no pneumatosis intestinalis or portal venous gas. 12/28/19 09:48 MR MRCP Routine FINDINGS: This exam is mildly compromised by motion artifact. Gastric distention has resolved since CT of December 26, 2019. Trace abdominal ascites is present. Mild biliary ductal dilatation has slightly increased since MRI of March 16, 2018. The common bile duct measures 9 mm in caliber. No common bile duct calculi are identified. There is a abrupt narrowing of the distal common bile duct within the region of the pancreatic head. A corresponding T2 hyperintense masslike foc us is noted to the level which likely corresponds to the finding on CT of December 26, 2019. There is no pancreatic ductal dilatation. Pancreatic glandular atrophy is again noted. Note is made of duodenal wall thickening. A cyst within the right kidney is noted. There is no hydronephrosis. Unenhanced images of the spleen spleen and adrenal glands are unremarkable. No hepatic lesions are identified on this unenhanced examination. IMPRESSION: 1. Slight increase in mild biliary ductal dilatation since MRCP of March 16, 2018. Cholecystectomy. No common bile duct calculi. Abrupt narrowing of the dist al common bile duct within the region of the pancreatic head with corresponding T2 hypointense abnormality at this level. This corresponds to the finding on CT of December 26, 2019. This may be benign and related to chronic pancreatitis however a pancreatic mass could appear similar and a neoplastic etiology cannot be excluded. 2. Interval resolution of gastric distention. 3. Moderate duodenal wall thickening. 4. Trace abdominal ascites. 12/28/19 14:17 FL ERCP biliary ductal Routine 12/28/19 15:26 US upper EUS PACS images Routine Hospital Course (1) Abdominal pain: (2) Gastric outlet obstruction: 54-year-old male with history of alcoholic pancreatitis, chronic, diabetes type 2, dyslipidemia, smoker, hep C, Epilepsy, back pain, generalized anxiety disorder, coming in with abdominal pain. 1. Pancreatic Mass, Duodenal stricture with ulceration, Common Bile Duct Stricture --Dec 27 2019 status post EGD, revealing mild gastric pylorus stenosis, status post dilation Stomach biopsy: Pending --CT abdomen/pelvis: 1. The stomach is markedly distended and fluid-filled to the level of the duodenum at the pancreatic head. This likely represents obstruction. 2. The gastric mucosa is hyperemic, with mucosal edema involving predominantly the distal esophagus and proximal duodenum. Correlate clinically for evidence of superimposed gastroesophagitis/duodenitis. 3. There is heterogeneity of the pancreatic head with evidence of chronic pancreatitis. 4. As noted above the level of duodenal obstruction is at the level of the pancreatic head. This could be potentially be related to stricture or possibly obstructing mass lesion. GI consultation is advised. Consider endoscopy for further assessment. 5. No intraperitoneal free air is seen. There is no pneumatosis intestinalis or portal venous gas. --MRCP: 1. Slight increase in mild biliary ductal dilatation since MRCP of March 16, 2018. Cholecystectomy. No common bile duct calculi. Abrupt narrowing of the distal common bile duct within the region of the pancreatic head with corresponding T2 hypointense abnormality at this level. This corresponds to the finding on CT of December 26, 2019. This may be benign and related to chronic pancreatitis however a pancreatic mass could appear similar and a neoplastic etiology cannot be excluded. 2. Interval resolution of gastric distention. 3. Moderate duodenal wall thickening. 4. Trace abdominal ascites. -- December 28, 2019 status post ERCP, EUS Erosive esophagitis Stricture of the duodenal bulb with ulceration mm pancreatic mass, could be inflammatory or malignant in etiology Unable to cannulate the pancreatic duct or the common bile duct due to the stricture related to chronic pancreatitis Recommendations Clear liquid diet Continue Protonix twice daily Await cytology Referral to a tertiary Medical Center for repeat attempt at ERCP (if patient has benign disease he may benefit from placement of a gastrojejunal axios stent) Follow-up biopsies from EGD, ERCP, EUS Discussed findings with patient, he is agreeable for transfer to [facility] Discussed with Dr. Thomas at [facility] [place] and he kindly accepted the patient for transfer today Gastroesophagitis/duodenitis. On ct scan. --Status post EGD: Mild duodenitis Continue IV Protonix, then transition to 40 mg p.o. twice daily Follow-up biopsy results 2. Fever --Noted to have fever of 38.0 on hospital day #1 --Leukocytosis resolved, from 18 K now 7K Blood cultures: Negative x48 hours CXR: No pneumonia UA: For bacteria or leukocyte esterase --Afebrile since admission day --no clear source of infection at this point --COVID-19 negative --Continue IV Zosyn day #3 Follow cultures, monitor 3. Diabetes --Metformin, hold for now --On insulin Lantus, and sliding scale 4. Hyponatremia. --Sodium improved from 129-1 35 Continue NSS 5. Esophagitis, duodenitis --#1 6. Alcoholism. --The patient says quit 1 year ago --No signs of withdrawal 7. Elevated LFTs. -- Alk phos 509->502 --> 423 AST 34 --> 81--> 37 ALT 118 --> 98 --> 85 T janina 0.5 --> 0.3 -- monitor 8. History of epilepsy -- on Lamictal and gabapentin. 9. Chronic pain, on Suboxone. --On Dilaudid IV. Hold suboxone while on IV Dilaudid 10. Hyperlipidemia: --Hold statin for now given GI symptoms 11. Hepatitis C, not treated. Needs followup. 12. Tobacco abuse. Needs counseling. 13. Deep venous thrombosis prophylaxis, sequential compression devices. --Avoiding anticoagulation in light of esophagitis, duodenitis, biopsies performed Disposition transfer to [facility] Total Time Total Time Spent Total Time Spent (In Minutes): 60 minutes Discharge Plan Discharge Items Patient Disposition: Transfer Acute Care Hospital Reason For Visit: AB PAIN Discharge Diagnosis: Duodenal stricture, pancreatic mass Activity: As commented below Activity Comment: Out of bed as tolerated Non-emergency contact: Primary Care Provider Call non-emergency contact if: you have any medication questions and you have a fever Follow-up/Referrals: Kaya Pike MD [Hospitalist] - 01/04/20 11:20 am (01/04/2020 11:20 AM Provider Todd Bassett III, MD Department General Internal Medicine [facility] ) Diet: Carb Consistent or DM2 and Other - See Diet Comment Diet Comment: Clear liquid diet Addtl Attending Provider Instructions: Please refer to accompanying hospital discharge summary for further details. Pending Studies at Discharge: Yes Studies:: Please refer to hospital discharge summary for further details. Stand-Alone Forms: My [employer] RelevanttanReasult Skilled Items Patient informed of condition?: Yes DNR: No Discharge Level of Care: Other Communicable Disease: No Discharge Prognosis: Stable Lines: Peripheral IV Urinary Catheter: No Medications and DC Order Prescriptions: Continued atorvastatin [Lipitor] 40 mg tablet 40 mg PO DAILY RF: 0 gabapentin [Neurontin] 600 mg tablet 600 mg PO TID RF: 0 albuterol sulfate [ProAir HFA] 90 mcg/actuation HFA aerosol inhaler 2 puff inhalation QID PRN (Reason: Shortness Of Breath) RF: 0 acetaminophen [Tylenol Extra Strength] 500 mg Tablet 1,500 mg PO DAILY PRN (Reason: Pain) RF: 0 pantoprazole 40 mg Tablet,Delayed Release (Dr/Ec) 40 mg PO BID RF: 0 lidocaine 5 % Ointment 1 applic TOPICAL BID PRN (Reason: Pain) RF: 0 lamotrigine [Lamictal] 100 mg tablet 50 mg PO DAILY RF: 0 Discontinued Humulin 70/30 U-100 Insulin 100 unit/mL (70-30) suspension 14 unit subcut BID RF: 0 metformin [Glucophage XR] 500 mg tablet extended release 24 hr 500 mg PO BID RF: 0 aspirin [Aspir-81] 81 mg Tablet,Delayed Release (Dr/Ec) 81 mg PO DAILY RF: 0 buprenorphine-naloxone [Suboxone] 8-2 mg film 1 film sublingual BID RF: 0 Discharge Orders: Discharge Order (Routine); Ordered 12/29/19 Ordered By: Tee Carson/Other Patient Handouts: Diabetes and Heart Disease, Diabetes Hatcher[employer] Complications, Diabetes Healthy Meals, Diabetes Exercise Benefits, Diabetes Living Life, Diabetes Manage A1C Test Admission Data Admit Date/Time: 12/26/19 23:12 Attending Provider: Tee Garcia Admit Provider: Rafael Jacob Primary Care Provider: BETTY,TRISTAN Other Providers: Rafael Jacob ; Lucia Victoria ; Kristine Head ; Krista Gabriel ; Estefania Pederson ; Mark Guallpa ; Luz Parker ; Jose Lilly ; Ofe Butler ; Lonny Sotomayor ; Km Sheriff ; Holly Loaiza ; Maureen Webb ; Viridiana Perez ; Nat Starkey ; Pamella Moon Other Interventions: Discharge Summary Assessment (RN) Last Done: 12/27/19 12:52
[2019-12-29 11:00] LABS: Bilirubin Direct < 0.1 mg/dl (0-0.2)
--- NOTE | 2019-12-29 11:55 | Anesthesiology Progress Note ---
Date of Service December 29, 2019 Anesthesia Post Procedure Vital Signs Vital Signs: Temp Pulse Pulse Resp BP BP Pulse Ox 12/29/19 10:41 37.3 C 81 85 18 111/72 98 12/29/19 10:05 37.3 C 85 18 95/53 L 98 12/29/19 07:43 37.0 C 76 18 108/62 90 12/28/19 23:13 37.3 C 65 18 111/72 97 12/28/19 21:19 37.1 C 73 16 117/74 92 12/28/19 20:05 36.5 C 77 14 105/65 95 12/28/19 19:00 36.4 C L 71 16 134/83 97 12/28/19 18:30 36.4 C L 54 L 16 135/87 96 12/28/19 17:40 81 16 159/95 H 97 12/28/19 17:30 36.2 C L 83 16 142/107 H 97 12/28/19 15:16 36.6 C 64 20 120/62 92 Pain Intensity Abdomen: Pain Intensity: 6 Notes Mental Status: alert / awake / arousable and participated in evaluation Patient Amnestic to Procedure: Yes Nausea / Vomiting: adequately controlled Pain: adequately controlled Airway Patency, RR, SpO2: stable & adequate BP & HR: stable & adequate Hydration State: stable & adequate Anesthetic Complications: no major complications apparent and Pt Satisfied with anesthetic care
== END 2019-12-29 15:29 | disposition short-term general hospital (02) | DRG 381 ==
LOC: ED 18:14 → 3E 23:12 → 3N 12-27 09:57

== ENCOUNTER 2025-02-28 11:34 | Inpatient (IN) ==
[2025-02-28] MEDS: MoRPHine SULFATE 4 MG/ML 1 ML CARP\\VIAL IV STA (12:23)
[2025-02-28] MEDS: SODIUM CHLORIDE 0.9% 1,000 ML IV STA (12:23)
[2025-02-28] MEDS: ONDANSETRON INJ 2 MG/ML 2 ML VIAL IV STA (12:23)
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
[2025-02-28 13:40] LABS: Base Excess VBG -19.2 mEq/L; HCO3 VBG 9 mmol/L; Oxygen Saturation VBG < 60.0 %; PCO2 VBG 28 mmHg (38-50); PO2 VBG 34 mmHg; pH VBG 7.11 (7.36-7.41)
[2025-02-28 13:41] LABS: Hematocrit (blood only) 52.4 % (42.0-52.0); Hemoglobin 17.9 g/dl (14.0-18.0); Immature Granulocytes # (auto) 0.49 K/uL (0.01-0.20); Immature Granulocytes % (auto) 3.4 %; Mean Corpuscular Hemoglobin 32.0 pg (25.0-34.0); Mean Corpuscular Volume 93.7 fL (80.0-100.0); Platelet Count 230 K/uL (130-400); RDW Standard Deviation 42.4 fL (36.4-46.3); Red Blood Count 5.59 M/uL (4.70-6.10); White Blood Count 14.43 K/ul (4.8-10.8)
[2025-02-28] MEDS: FAMOTIDINE 20MG IV PUSH 20 MG/5 ML SYR IV STA (13:59)
[2025-02-28] MEDS ORDERED: CARBOHYDRATES FOR HYPOGLYCEMIA PO PRN (14:11)
[2025-02-28] MEDS ORDERED: GLUCOSE 40% GEL 15 GM TUBE PO PRN (14:11)
[2025-02-28] MEDS ORDERED: DEXTROSE 50% 50 ML SYRINGE IV PRN (14:11)
[2025-02-28] MEDS ORDERED: GLUCOSE 10 TAB/TUBE PO PRN (14:11)
[2025-02-28] MEDS ORDERED: GLUCAGON FOR INJ 1 MG VIAL SQ PRN (14:11)
[2025-02-28 14:13] LABS: Albumin Globulin Ratio 1.2 (0.9-2); Bilirubin,Total 0.9 mg/dl (0.2-1.0); Chloride 82.0 mmol/L (98-107); Creatinine Clr Calc Pharmacy 31.7 ml/min; Globulin 3.9 gm/dl (2.5-4.0); Lipase 11.0 U/L (11-82); Potassium 4.4 mmol/L (3.5-5.1); Sodium 129.0 mmol/L (136-145); Total Protein 8.7 gm/dl (6.0-8.3)
[2025-02-28 14:23] LABS: Appearance Urine Clear (Clear); Bacteria Urine Automated None Seen (None Seen); Epithelial Cell Urine Auto 0-2 /hpf (0-2); Glucose Urine UA 3+ (Negative); RBC Urine Automated 0-2 /hpf (0-2); WBC Urine Automated 0-5 /hpf (0-5)
[2025-02-28 14:37] LABS: Hemoglobin A1C 9.8 % (4.5-5.6)
[2025-02-28] MEDS: OPTIRAY 320 100ml IV ONE (14:37)
[2025-02-28] MEDS: LACTATED RINGER'S 1,000 ML IV SCH (14:46)
[2025-02-28] MEDS: DC HOME INSULIN PUMP STA (14:50)
[2025-02-28] MEDS: INSULIN HUMAN REGULAR PER UNIT 5 UNITS in SYRINGE 4.95 ML IV ONE (14:52)
[2025-02-28] MEDS: INSULIN REGULAR 250 UNITS in SODIUM CHLORIDE 0.9% 247.5 ML IV SCH ×2 (14:52→18:30)
--- NOTE | 2025-02-28 14:59 | CT Scan Report ---
CT SCAN OF THE ABDOMEN AND PELVIS WITH IV CONTRAST CLINICAL HISTORY: Abdominal pain. Chronic pancreatitis. COMPARISON STUDY: CT of the abdomen and pelvis December 26, 2019. MRCP December 28, 2019. TECHNIQUE: Following the IV administration of 94 cc of Optiray 320, CT scan of the abdomen and pelvi s is performed from the lung bases to the proximal femora. Images are reviewed in the axial, sagittal , and coronal planes. IV contrast was administered without complication. A dose lowering technique wa s utilized adhering to the principles of ALARA. CT DOSE: 360.35 mGy.cm FINDINGS: Visualized lung bases are unremarkable. Mild circumferential wall thickening of the distal esophagus is noted. There is no pneumatosis, free air or portal venous gas. Mild biliary ductal dilat ation is unchanged since prior CT of December 26, 2019 and likely related to cholecystectomy. Slight promi nence of the pancreatic duct is unchanged. A 1.5 cm calcification within the pancreatic head may be w ithin the pancreatic duct, unchanged. Numerous parenchymal calcifications within the pancreas indicat e chronic pancreatitis. There is no evidence for acute pancreatitis. Spleen, adrenal glands are unrem arkable. Several renal cysts are incidentally noted. There is no hydronephrosis. The stomach and firs t portion the duodenum are fluid-filled and moderately dilated, slightly decreased when compared to p rior CT. There is apparent wall thickening of the second portion of the duodenum. This could be due t o underdistention. A moderate amount of stool within the colon and rectum is present. There is no john dence for a large or small bowel obstruction. There is no lymphadenopathy. No ascites is present. IMPRESSION: 1. Fluid-filled, moderately distended stomach and proximal duodenum, slightly decreased in degree whe n compared to CT of December 26, 2019. This is nonspecific and may be related to gastroparesis given histo ry of diabetes. However, an obstruction at the level of the second duodenum cannot be completely excl uded. 2. Findings consistent with chronic pancreatitis. No evidence for acute pancreatitis. 1.5 cm calcific within the pancreatic head, likely intraductal in location, unchanged. 3. No change in mild biliary ductal dilatation likely related to cholecystectomy. 4. Moderate amount of stool within the colon and rectum. 5. Mild circumferential wall thickening of the distal esophagus. This may represent esophagitis. ACT 112: Negative or not required by law. Electronically signed by: Rasta Victoria M.D. 02/28/2025 2:58 PM
[2025-02-28 16:01] LABS: Alanine Aminotransferase 158.0 U/L (7-52); Alkaline Phosphatase 638.0 U/L (34-104); Anion Gap 40.0 (3-11); Blood Urea Nitrogen 24.0 mg/dl (6-23); Calcium 10.1 mg/dl (8.6-10.3); Carbon Dioxide 7.0 mmol/L (21-32); Glucose 703.0 mg/dl (70-99(Fasting))
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
[2025-02-28] MEDS ORDERED: STAT IV/IM STA (18:12)
[2025-02-28] MEDS ORDERED: PHARMACY GLYCEMIC MGMT CONSULT PRN (18:12)
[2025-02-28] MEDS ORDERED: STAT IV Infusion **Titration per Protocol STA (18:12)
[2025-02-28] MEDS ORDERED: PENDING D5 1/2NS+20mEq KCL IVF SCH (18:12)
[2025-02-28] MEDS: POTASSIUM CHLORIDE 40 MEQ in LACTATED RINGER'S 1,000 ML IV SCH (19:06)
[2025-02-28] MEDS: DKA GOAL RANGE 150-250 mg/dl ONE ×2 (19:23)
[2025-02-28] MEDS: STAT IV Infusion **Titration per Protocol STA (19:24)
[2025-02-28] MEDS: INSULIN ASPART PER UNIT CHARGE SC SCH ×2 (19:25→19:29)
[2025-02-28] MEDS: SODIUM BICARBONATE 8.4% 150 MEQ in WATER, STERILE 1,000 ML IV SCH (19:59)
[2025-02-28] MEDS: GLYCERIN ADULT 12 SUPP/BOX SUPP PR ONE (20:03)
[2025-02-28] MEDS: ENOXAPARIN INJ 40 MG/0.4 ML SYR SQ SCH (20:03)
[2025-02-28 22:01] LABS: Anion Gap 8.0 (3-11); Blood Urea Nitrogen 20.0 mg/dl (6-23); Calcium 8.4 mg/dl (8.6-10.3); Carbon Dioxide 23.0 mmol/L (21-32); Chloride 100.0 mmol/L (98-107); Creatinine Clr Calc Pharmacy 74.1 ml/min; Glucose 206.0 mg/dl (70-99(Fasting)); Magnesium 1.9 mg/dl (1.7-2.4); Potassium 4.0 mmol/L (3.5-5.1); Sodium 131.0 mmol/L (136-145)
[2025-02-28] MEDS: D5W AND 1/2NSS + 20MEQ KCL 20 MEQ/1,000 ML BAG IV SCH (22:49)
[2025-02-28 23:30] LABS: Anion Gap 4.0 (3-11); Blood Urea Nitrogen 18.0 mg/dl (6-23); Calcium 8.3 mg/dl (8.6-10.3); Carbon Dioxide 28.0 mmol/L (21-32); Chloride 100.0 mmol/L (98-107); Creatinine Clr Calc Pharmacy 81.9 ml/min; Glucose 138.0 mg/dl (70-99(Fasting)); Magnesium 1.9 mg/dl (1.7-2.4); Potassium 4.1 mmol/L (3.5-5.1); Sodium 132.0 mmol/L (136-145)
[2025-03-01] MEDS: LANTUS PER UNIT CHARGE SC SCH (09:01)
[2025-03-01 09:54] LABS: Anion Gap 4.0 (3-11); Calcium 7.8 mg/dl (8.6-10.3); Carbon Dioxide 30.0 mmol/L (21-32); Chloride 95.0 mmol/L (98-107); Magnesium 1.8 mg/dl (1.7-2.4); Potassium 3.9 mmol/L (3.5-5.1); Sodium 129.0 mmol/L (136-145)
[2025-03-01 10:07] LABS: Blood Urea Nitrogen 13.0 mg/dl (6-23); Creatinine Clr Calc Pharmacy 101.6 ml/min; Glucose 327.0 mg/dl (70-99(Fasting))
--- NOTE | 2025-03-01 11:43 | Hospitalist Progress Note ---
Date of Service March 01, 2025 Assessment & Plan (1) Diabetic ketoacidosis associated with type 1 diabetes mellitus: (2) Acute kidney injury: (3) Diabetic gastroparesis associated with type 1 diabetes mellitus: (4) Metabolic acidosis with metabolic alkalosis: (5) Metabolic acidosis with increased anion gap and accumulation of organic acids: (6) Alcohol use disorder, mild, abuse: (7) Nicotine dependence with current use: (8) Cannabis use disorder, moderate, dependence: Plan In summary this is a 59-year-old male who presents to [facility] due to persistent nausea and vomiting found to be in severe DKA in association with type 1 diabetes mellitus likely multifactorial in the setting of dyspepsia versus a gastric outlet obstruction complicated by an acute kidney injury. #Diabetic ketoacidosis associated with type 1 diabetes mellitus with metabolic acidosis and metabolic alkalosis Now resolving following DKA protocol Blood glucose under better control Hemoglobin A1c around 9 today compared to 12 last year Continue insulin drip, wean Currently on glargine 20 units daily Patient currently tolerating regular diabetic diet Patient has missed several PCP visits #KAE Most likely prerenal due to dehydration and now resolved Anion gap metabolic acidosis: Anion gap has closed #Persistent emesis without hematemesis Could be due to gastroparesis CT abdomen pelvis with intravenous but without oral contrast obtained in the emergency department does reveal a moderate distended stomach and proximal duodenum; obstruction at the level of the second duodenum cannot be excluded based on the radiologist interpretation #Significant constipation Noted on personal review of CT abdomen pelvis initially obtained in the emergenc y department; qotentially chronic though not previously well-documented, likely consequential of the patient's autonomic dysfunction in the setting of their type 1 diabetes mellitus -Administer one time suppository, reassess in morning #Alcohol use disorder, unspecified Patient is unable to specify the last alcoholic drink; PAWSS score of 1; they do have elevated AST and ALT however not significantly changed from previous measures, not consistent with alcoholic steatohepatitis -Pending serum alcohol level - No indication at this time for symptomatic management History of drug abuse: On Suboxone Diet: diabetic DVT ppx: Enoxaparin 40 mg SQ daily GI ppx: Not indicated at this time Access: Peripheral IV Code Status: Full code Disposition: Continue to monitor in the hospital Admission and Anticipated Discharge Date Admission Date: February 28, 2025 Subjective Patient seen and examined, said he was very hungry and wanted to eat Review of Systems Review of Systems: All systems reviewed are negative, apart from the ones contained in the history. Physical Exam Physical Exam: The patient is awake, alert and oriented 3, thin HEENT--PERRL, EOMI, mucous membranes and oropharynx mildly dry Neck--supple. No JVD. No bruits. Thyroid normal, trachea midline, no adenopathy. Heart--normal S1 and S2. No murmurs, rubs or gallops. Lungs--clear bilaterally, no respiratory distress, no accessory muscle use. Abdomen--normal bowel sounds and soft. Extremities--no cyanosis or clubbing. No edema. Dermatologic--normal skin turgor, normal color, no abnormal lymph nodes, no rash. Neurologic--cranial nerves II through XII grossly intact. Rheumatologic--normal range of motion. Psychiatric--normal affect. Results & Data Results & Data Vital Signs (Past 12 Hours) Vital Signs Temp Pulse Pulse Resp BP Pulse Ox O2 Del Method 03/01/25 10:17 98.4 F 76 20 103/67 94 Room Air 03/01/25 07:06 98.2 F 74 20 122/73 93 Room Air 03/01/25 03:14 98.1 F 73 16 114/71 94 Room Air 02/28/25 23:48 79 PG Care Time/CCT Total # of Minutes Spent Total Time Spent with Patient: Total time spent is greater than 50% in coordination of care (as documented) at patient's floor/unit and/or counseling patient: Coding Level of Care Code 24027 SUB INP/OBS CARE 2/35MIN Diagnoses Diabetic ketoacidosis without coma associated with type 1 diabetes mellitus E10.10 Diabetes mellitus complication detail: without coma Acute kidney injury N17.9 Diabetic gastroparesis associated with type 1 diabetes mellitus E10.43; K31.84 Metabolic acidosis with metabolic alkalosis E87.20; E87.3 Metabolic acidosis with increased anion gap and accumulation of organic acids E87.20 Alcohol use disorder, mild, abuse F10.10 Nicotine dependence with current use F17.200 Cannabis use disorder, moderate, dependence F12.20 Time Spent (min) 35 (1) Diabetic ketoacidosis associated with type 1 diabetes mellitus Diabetes mellitus complication detail: without coma Qualified Code(s): E10.10 - Type 1 diabetes mellitus with ketoacidosis without coma
[2025-03-01] MEDS ORDERED: BUPRENORPHINE/NALOXONE 8/2 MG TAB SL SCH (11:45)
[2025-03-01] MEDS: BUPRENORPHINE/NALOXONE 2/0.5MG TAB SL SCH ×3 (12:20→12:58)
--- NOTE | 2025-03-01 12:20 | Pharmacy Report ---
Pharmacy Glycemic Short Note 2 - Date of Service March 01, 2025 - Glycemic Short BSG Results (Last 24 hours): 02/28/25 02/28/25 02/28/25 12:06 13:24 14:44 Glucose 703 H* POC Glucose 573 H* 540 H* 02/28/25 02/28/25 02/28/25 15:47 16:47 17:41 Glucose POC Glucose 494 H* 408 H* 309 H* 02/28/25 02/28/25 02/28/25 18:12 19:04 19:57 Glucose POC Glucose 314 H* 251 H 230 H 02/28/25 02/28/25 02/28/25 20:55 20:59 22:51 Glucose 206 H POC Glucose 193 H 121 H 02/28/25 02/28/25 03/01/25 22:53 23:30 00:25 Glucose 138 H POC Glucose 156 H 195 H 03/01/25 03/01/25 03/01/25 01:37 02:30 05:23 Glucose POC Glucose 188 H 196 H 180 H 03/01/25 03/01/25 03/01/25 09:16 09:18 09:28 Glucose 327 H* POC Glucose 324 H* 270 H 03/01/25 03/01/25 10:27 11:25 Glucose POC Glucose 278 H 223 H OUTPATIENT ANTIDIABETIC REGIMEN: * Lantus 20 units SQ qAM * Novolog SSI * HbA1c: 9.8% (02/28/25) ASSESSMENT: * Mr Zimmerman is a 59yo diabetic, admitted with DKA. * Labs have all improved since admission: * anion gap: 40 --> 4 * bicarb: 7 --> 30 * pH: 7.11 --> 7.56 * Patient was initially managed on an IV insulin infusion on admission. Since labs improved overnight, started transitioning to SQ insulin this morning. * Insulin infusion is continuing to titrate off. Plan is to stop infusion 6 hours after Lantus dose was administered, or when held by Insulin Infusion Adjustment Calculator, whichever is sooner. * Pharmacy will continue to follow and adjust regimen as indicated. PLAN FOR INPATIENT GLYCEMIC CONTROL: * Hold outpatient oral diabetes medications * Basal insulin * Lantus 20 units SQ daily * Bolus insulin * NovoLog per scale ACHS or Q6hrs while NPO * Goal Range: Low 110 mg/dL - High 140 mg/dL * Correction Factor: 30 mg/dL/unit * Nutritional / Prandial insulin per carb ratio of 1 unit per 10 grams CHO consumed
[2025-03-01] MEDS: INSULIN ASPART PER UNIT CHARGE SC SCH (12:44)
[2025-03-01 15:44] LABS: Anion Gap 4.0 (3-11); Blood Urea Nitrogen 11.0 mg/dl (6-23); Calcium 8.3 mg/dl (8.6-10.3); Carbon Dioxide 33.0 mmol/L (21-32); Chloride 94.0 mmol/L (98-107); Creatinine Clr Calc Pharmacy 105.2 ml/min; Glucose 260.0 mg/dl (70-99(Fasting)); Potassium 3.7 mmol/L (3.5-5.1); Sodium 131.0 mmol/L (136-145)
[2025-03-01 15:45] LABS: Magnesium 2.0 mg/dl (1.7-2.4)
[2025-03-01] MEDS ORDERED: SODIUM PHOSPHATE 3 MMOL/1 ML INFUSION IV STA (15:55)
[2025-03-01] MEDS: SODIUM PHOSPHATE 15 MMOL in SODIUM CHLORIDE 0.9% 250 ML IV ONE (17:30)
[2025-03-01] MEDS: MELATONIN 3 MG TAB PO PRN (21:48)
[2025-03-02] MEDS: SODIUM CHLORIDE 0.9% 1,000 ML IV SCH (04:27)
--- NOTE | 2025-03-02 05:22 | Electrocardiogram Report ---
Test Reason : Blood Pressure : */* mmHG Vent. Rate : 106 BPM Atrial Rate : 106 BPM P-R Int : 144 ms QRS Dur : 78 ms QT Int : 328 ms P-R-T Axes : 85 80 82 degrees QTcB Int : 435 ms Sinus tachycardia Biatrial enlargement Cannot rule out Anterior infarct , age undetermined Abnormal ECG When compared with ECG of 26-Jun-2022 00:15, T wave amplitude has decreased in Lateral leads Confirmed by Ronnie De ([id number]) on 03/02/2025 5:22:28 AM Referred By: Confirmed By: Ronnie De
[2025-03-02 08:56] LABS: Anion Gap 5.0 (3-11); Calcium 8.2 mg/dl (8.6-10.3); Carbon Dioxide 34.0 mmol/L (21-32); Chloride 96.0 mmol/L (98-107); Potassium 3.9 mmol/L (3.5-5.1); Sodium 135.0 mmol/L (136-145)
[2025-03-02 09:02] LABS: Blood Urea Nitrogen 9.0 mg/dl (6-23); Creatinine Clr Calc Pharmacy 134.9 ml/min; Glucose 260.0 mg/dl (70-99(Fasting))
--- NOTE | 2025-03-02 10:29 | Hospitalist Progress Note ---
Date of Service March 02, 2025 Assessment & Plan (1) Diabetic ketoacidosis associated with type 1 diabetes mellitus: (2) Acute kidney injury: (3) Diabetic gastroparesis associated with type 1 diabetes mellitus: (4) Metabolic acidosis with metabolic alkalosis: (5) Metabolic acidosis with increased anion gap and accumulation of organic acids: (6) Alcohol use disorder, mild, abuse: (7) Nicotine dependence with current use: (8) Cannabis use disorder, moderate, dependence: Plan In summary this is a 59-year-old male who presents to [facility] due to persistent nausea and vomiting found to be in severe DKA in association with type 1 diabetes mellitus likely multifactorial in the setting of dyspepsia versus a gastric outlet obstruction complicated by an acute kidney injury. #Diabetic ketoacidosis associated with type 1 diabetes mellitus with metabolic acidosis and metabolic alkalosis Now resolved following DKA protocol Blood glucose under better control Hemoglobin A1c around 9% compared to 12 last year Currently on glargine 20 units daily Patient currently tolerating regular diabetic diet Patient has missed several PCP visits He will need diabetes supplies at the time of discharge #KAE Most likely prerenal due to dehydration and now resolved Anion gap metabolic acidosis: Anion gap has closed #Persistent emesis without hematemesis Could be due to gastroparesis CT abdomen pelvis with intravenous but without oral contrast obtained in the emergency department does reveal a moderate distended stomach and proximal duodenum; obstruction at the level of the second duodenum cannot be excluded based on the radiologist interpretation #Significant constipation Noted on personal review of CT abdomen pelvis initially obtained in the emergency department; qotentially chronic though not previously well-documented, likely consequential of the patient's autonomic dysfunction in the setting of their type 1 diabetes mellitus -Administer one time suppository, reassess in morning #Alcohol use disorder, unspecified Patient is unable to specify the last alcoholic drink; PAWSS score of 1; they do have elevated AST and ALT however not significantly changed from previous measures, not consistent with alcoholic steatohepatitis -Pending serum alcohol level - No indication at this time for symptomatic management History of drug abuse: On Suboxone Diet: diabetic DVT ppx: Enoxaparin 40 mg SQ daily GI ppx: Not indicated at this time Access: Peripheral IV Code Status: Full code Disposition: hopefully d/c home tomorrow Admission and Anticipated Discharge Date Admission Date: February 28, 2025 Subjective Patient seen and examined, said he feels much better today Review of Systems Review of Systems: All systems reviewed are negative, apart from the ones contained in the history. Physical Exam Physical Exam: The patient is awake, alert and oriented 3, thin HEENT--PERRL, EOMI, mucous membranes and oropharynx mildly dry Neck--supple. No JVD. No bruits. Thyroid normal, trachea midline, no adenopathy. Heart--normal S1 and S2. No murmurs, rubs or gallops. Lungs--clear bilaterally, no respiratory distress, no accessory muscle use. Abdomen--normal bowel sounds and soft. Extremities--no cyanosis or clubbing. No edema. Dermatologic--normal skin turgor, normal color, no abnormal lymph nodes, no rash. Neurologic--cranial nerves II through XII grossly intact. Rheumatologic--normal range of motion. Psychiatric--normal affect. Results & Data Results & Data Vital Signs (Past 12 Hours) Vital Signs Temp Pulse Pulse Resp BP BP Pulse Ox 03/02/25 08:02 78 94/57 L 102/61 03/02/25 07:17 97.5 F L 76 21 94/60 L 95 03/02/25 05:31 91 H 03/02/25 03:59 97.7 F 73 18 88/43 L 92 03/02/25 00:26 73 96/57 L 03/01/25 23:23 98.1 F 75 16 90/46 L 95 03/01/25 23:00 74 O2 Del Method 03/02/25 08:02 03/02/25 07:17 Room Air 03/02/25 05:31 03/02/25 03:59 Room Air 03/02/25 00:26 03/01/25 23:23 Room Air 03/01/25 23:00 PG Care Time/CCT Total # of Minutes Spent Total Time Spent with Patient: Total time spent is greater than 50% in coordination of care (as documented) at patient's floor/unit and/or counseling patient: Coding Level of Care Code 33606 SUB INP/OBS CARE 2/35MIN Diagnoses Diabetic ketoacidosis without coma associated with type 1 diabetes mellitus E10.10 Diabetes mellitus complication detail: without coma Acute kidney injury N17.9 Diabetic gastroparesis associated with type 1 diabetes mellitus E10.43; K31.84 Metabolic acidosis with metabolic alkalosis E87.20; E87.3 Metabolic acidosis with increased anion gap and accumulation of organic acids E87.20 Alcohol use disorder, mild, abuse F10.10 Nicotine dependence with current use F17.200 Cannabis use disorder, moderate, dependence F12.20 Time Spent (min) 35 (1) Diabetic ketoacidosis associated with type 1 diabetes mellitus Diabetes mellitus complication detail: without coma Qualified Code(s): E10.10 - Type 1 diabetes mellitus with ketoacidosis without coma
[2025-03-02] MEDS: ASPIRIN 81 MG CHEW PO SCH (17:09)
[2025-03-02] MEDS: NORTRIPTYLINE HCL 25 MG CAP PO SCH (20:04)
[2025-03-03 06:55] VITALS: PULSE 60; RESP 18; TEMP 97.7; O2SAT 93
[2025-03-03] MEDS: ATORVASTATIN 40 MG TAB PO SCH (08:41)
[2025-03-03] MEDS: lamoTRIgine 25 MG TAB PO SCH (08:41)
[2025-03-03 09:23] LABS: Anion Gap 4.0 (3-11); Blood Urea Nitrogen 11.0 mg/dl (6-23); Calcium 8.8 mg/dl (8.6-10.3); Carbon Dioxide 33.0 mmol/L (21-32); Chloride 98.0 mmol/L (98-107); Creatinine Clr Calc Pharmacy 144.8 ml/min; Glucose 283.0 mg/dl (70-99(Fasting)); Magnesium 2.2 mg/dl (1.7-2.4); Potassium 3.9 mmol/L (3.5-5.1); Sodium 135.0 mmol/L (136-145)
[2025-03-03 09:34] VITALS: BP 94/57
--- NOTE | 2025-03-03 10:11 | Discharge Summary ---
Date of Service March 03, 2025 Admission HPI Per Admitting Provider Mr. Zimmerman is a 59-year-old male whose active medical conditions include type 1 diabetes mellitus complicated by chronic pancreatitis, gastroparesis among other chronic medical conditions including seizures and alcohol use disorder who presented to [facility] on 02/28 Due to persistent nausea and vomiting over the past 72 hours and inability to refill their previously prescribed insulin regimen. The patient is not well-established with an outpatient primary care physician however states that they have had these medications on a regular refill until the past few days as they have been persistently vomiting resulting in inability to fill their prescriptions. Due to the persistence of their symptoms, worsening abdominal pain, and inability to tolerate regular oral intake they presented to the emergency department for further evaluation.. Admission Exam (Per Admitting) Constitutional The patient is awake, alert and oriented 3, thin HEENT--PERRL, EOMI, mucous membranes and oropharynx mildly dry Neck--supple. No JVD. No bruits. Thyroid normal, trachea midline, no adenopathy. Heart--normal S1 and S2. No murmurs, rubs or gallops. Lungs--clear bilaterally, no respiratory distress, no accessory muscle use. Abdomen--normal bowel sounds and soft. Extremities--no cyanosis or clubbing. No edema. Dermatologic--normal skin turgor, normal color, no abnormal lymph nodes, no rash. Neurologic--cranial nerves II through XII grossly intact. Rheumatologic--normal range of motion. Psychiatric--normal affect. Discharge Data Consultations 02/28/25 16:22 ED Decision to Admit Stat Hospital Course (1) Diabetic ketoacidosis associated with type 1 diabetes mellitus: (2) Acute kidney injury: (3) Diabetic gastroparesis associated with type 1 diabetes mellitus: (4) Metabolic acidosis with metabolic alkalosis: (5) Metabolic acidosis with increased anion gap and accumulation of organic acids: (6) Alcohol use disorder, mild, abuse: (7) Nicotine dependence with current use: (8) Cannabis use disorder, moderate, dependence: Plan In summary this is a 59-year-old male who presents to [facility] due to persistent nausea and vomiting found to be in severe DKA in association with type 1 diabetes mellitus likely multifactorial in the setting of dyspepsia versus a gastric outlet obstruction complicated by an acute kidney injury. #Diabetic ketoacidosis associated with type 1 diabetes mellitus with metabolic acidosis and metabolic alkalosis Now resolved following DKA protocol Blood glucose under better control Hemoglobin A1c around 9% compared to 12 last year Currently on glargine 20 units daily, ( He is still waking up with hyperglycemia) will d/c on his home 32 units Patient currently tolerating regular diabetic diet Patient has missed several PCP visits He will need diabetes supplies at the time of discharge #KAE Most likely prerenal due to dehydration and now resolved Anion gap metabolic acidosis: Anion gap has closed #Persistent emesis without hematemesis Could be due to gastroparesis CT abdomen pelvis with intravenous but without oral contrast obtained in the emergency department does reveal a moderate distended stomach and proximal duodenum; obstruction at the level of the second duodenum cannot be excluded based on the radiologist interpretation #Significant constipation Noted on personal review of CT abdomen pelvis initially obtained in the emergency department; qotentially chronic though not previously well-documented, likely consequential of the patient's autonomic dysfunction in the setting of their type 1 diabetes mellitus -Administer one time suppository, reassess in morning #Alcohol use disorder, unspecified Patient is unable to specify the last alcoholic drink; PAWSS score of 1; they do have elevated AST and ALT however not significantly changed from previous measures, not consistent with alcoholic steatohepatitis -Pending serum alcohol level - No indication at this time for symptomatic management History of drug abuse: On Suboxone Diet: diabetic DVT ppx: Enoxaparin 40 mg SQ daily GI ppx: Not indicated at this time Access: Peripheral IV Code Status: Full code Disposition: d/c home Coding Level of Care Code 51623 INP/OBS DISCH >30 MIN Diagnoses Diabetic ketoacidosis without coma associated with type 1 diabetes mellitus E10.10 Diabetes mellitus complication detail: without coma Acute kidney injury N17.9 Diabetic gastroparesis associated with type 1 diabetes mellitus E10.43; K31.84 Metabolic acidosis with metabolic alkalosis E87.20; E87.3 Metabolic acidosis with increased anion gap and accumulation of organic acids E87.20 Alcohol use disorder, mild, abuse F10.10 Nicotine dependence with current use F17.200 Cannabis use disorder, moderate, dependence F12.20 Time Spent (min) 35
== END 2025-03-03 11:12 | disposition home or self-care (01) | DRG 637 ==
LOC: ED 11:34 → 2S 16:15 → SUATTDRO 16:15 → 2S 17:55